=== PATIENT | female | born 1945 | race Hispanic/Latino ===

== ENCOUNTER 2017-12-11 08:46 | Emergency (ER) | payer OTHER ==
[2017-12-11 09:30] LABS: Absolute Lymphocytes (CBC) 2.6 K/uL (0.7-4.9); Absolute Monocytes 0.6 K/uL (0.1-1.3); Absolute Neutrophil 4.3 K/uL (1.8-8.0); Eosinophils % 3.9 % (0-4.4); Hematocrit 33.8 % (36.0-45.0); Lymphocytes % 32.7 % (15.3-44.8); MCH 27.2 pg (27.0-35.0); MPV 8.1 fL (7.6-11.3); Monocytes % 7.3 % (3.3-12.3); RBC Red Blood Cell Count 4.08 M/uL (3.86-4.86)
[2017-12-11 10:17] LABS: ALT/SGPT 14 U/L (12-78); AST/SGOT 16 U/L (15-37); Albumin 3.4 g/dL (3.4-5.0); Alkaline Phosphatase 88 U/L (45-117); BUN Blood Urea Nitrogen 22 mg/dL (7-18); Bicarbonate 30 mmol/L (21-32); Bilirubin Direct < 0.1 mg/dL (0-0.2); Bilirubin Total 0.3 mg/dL (0.2-1.0); Glucose Level 126 mg/dL (74-106); Lipase 123 U/L (73-393); Sodium Level 137 mmol/L (136-145)
[2017-12-11] MEDS ORDERED: NA CHLORIDE 0.9% 500 ML ONE (11:07)
[2017-12-11] MEDS ORDERED: MEPERIDINE HCL 50 MG/ML AMP ONE (11:07)
--- NOTE | 2017-12-11 11:10 | RAD REPORT ---
EXAM DESCRIPTION: CT - Abdomen Pelvis W Contrast - 12/11/2017 10:38 am CLINICAL HISTORY: Abdominal pain, back pain, prior , hysterectomy, cholecystectomy and back surgery COMPARISON: CT imaging November 2016 TECHNIQUE: Biphasic, helical CT imaging of the abdomen and pelvis was performed following 100 ml non -ionic IV contrast. No oral contrast administered. All CT scans are performed using dose optimization technique as appropriate and may include automated exposure control or mA/KV adjustment according to patient size. FINDINGS: Chronic interstitial lung disease in each base. No infiltrate, mass or pleural effusion. N o pericardial effusion. Liver size is normal. No focal liver lesion identified. Spleen pancreas also unremarkable. Cholecyste ctomy clips are present. Mild dilatation of the biliary tree is present. This is not outside of nathen l range in may simply be the reservoir effect that can develop after a cholecystectomy. No pancreatic or duodenal mass. Duct stones can be occult. Correlation can be made with any biliary obstructive cl inical or laboratory findings. Pancreatic duct is not dilated. Symmetric renal function is seen with no hydronephrosis or suspicious renal mass. Nonobstructing calc ulus noted on the left. No perinephric stranding. No pyelonephritis findings. Urinary bladder is most ly contracted. No mass or bladder calculus suspected. Uterus is absent. Ovaries are absent or atrophi c. No adnexal mass. No dilated bowel loops or bowel wall thickening. Moderate stool volume seen in the colon. Mild sigmoi d diverticulosis present without diverticulitis. No free air, free fluid or inflammatory stranding. No hernia, mass or bulky lymphadenopathy. No adrenal abnormality. Patient has extensive degenerative and postsurgical changes in the lumbar spine. Pedicle screws are i n place in L3, L5 and S1. Wedging of the L3 body has not changed. No pathologic bone process. No zaid r change from 2017 in the lumbar spine. SI joint and sacral ala degenerative changes are present. Acu te sacral ala fracture not confirmed on this study. There are postsurgical changes to the right ilium near the SI joint. No new bone or disc finding confirmed on this study. IMPRESSION: Gallbladder is surgically absent. There is mild dilatation of the biliary tree compared to 2017. Biliary tree dilatation may simply be the reservoir effect that can occur after cholecystectomy. Duct stones can be occult. No duodenal or pancreatic mass seen. No acute or GI process seen. Patient has extensive degenerative and postsurgical changes in the lumbar spine, pelvis and hip joint s. No acute finding confirmed.
--- NOTE | 2017-12-11 11:24 | ER ---
Nurse's Notes [facility] Name: Astrid Cash Age: 72 yrs Sex: Female : 1945 Arrival Date: 12/11/2017 Time: 08:47 Bed 16 Private MD: Jun Combs R Diagnosis: Muscle spasm of back;Osteoarthritis, unspecified site Presentation: 12/11 09:03 Presenting complaint: Patient states: low back pain that radiates towards abd that ss began 2 weeks ago. Transition of care: patient was not received from another setting of care. Onset of symptoms was November 27, 2017. Risk Assessment: Do you want to hurt yourself or someone else? Patient reports no desire to harm self or others. Initial Sepsis Screen: Does the patient meet any 2 criteria? No. Patient's initial sepsis screen is negative. Does the patient have a suspected source of infection? No. Patient's initial sepsis screen is negative. Care prior to arrival: None. 09:03 Method Of Arrival: Ambulatory ss 09:03 Acuity: [place] 3 ss Triage Assessment: 09:00 General: Appears in no apparent distress. Behavior is calm, cooperative, appropriate tw2 for age. Musculoskeletal: Range of motion: intact in all extremities, pt walks with walker. Historical: - Allergies: 09:07 Sulfa (Sulfonamide Antibiotics); ss - Home Meds: 14:27 alendronate 35 mg Oral tab 1 tab once wkly [Active]; aspirin 81 mg Oral TbEC 1 tab once tw2 daily [Active]; Cymbalta 60 mg Oral cpDR 1 cap once daily [Active]; gabapentin 300 mg Oral cap 1 cap 3 times per day [Active]; hydrocodone-acetaminophen 10-325 mg Oral tab 1 tab every 6 hours [Active]; methotrexate sodium 8.5mg injection once wkly [Active]; Metoprolol Tartrate Oral once daily [Active]; prednisone 5 mg Oral tab once daily [Active]; tizanidine 4 mg Oral tab 1 tab BID PRN [Active]; Xanax 0.5 mg Oral tab 1 tab 2 times daily [Active]; - PMHx: 09:07 Anxiety; Depression; Hypertension; Rheumatoid Arthritis; ss - PSHx: 09:07 ; Hysterectomy; LEFT FOOT; RIGHT FOOT; JI CATARACT EYE SX; BACK SX; ss Cholecystectomy; NECK SX; - Immunization history:: Adult Immunizations up to date, Flu vaccine is not up to date. - Social history:: Smoking status: Patient/guardian denies using tobacco. - Family history:: not pertinent. - Ebola Screening: : Patient denies exposure to infectious person Patient denies travel to an Ebola-affected area in the 21 days before illness onset. - Hospitalizations: : No recent hospitalization is reported. Screenin:23 Abuse screen: Denies threats or abuse. Nutritional screening: No deficits noted. tw2 Tuberculosis screening: No symptoms or risk factors identified. Fall Risk Secondary diagnosis (15 points) impaired mobility. Assessment: 09:00 General: Appears in no apparent distress. well groomed, Behavior is calm, cooperative, tw2 appropriate for age. Pain: Complains of pain in back. Neuro: Level of Consciousness is awake, alert, obeys commands, Oriented to person, place, time, situation. Cardiovascular: Denies chest pain, shortness of breath, Heart tones S1 S2 Capillary refill < 3 seconds Patient's skin is warm and dry. Respiratory: Airway is patent Respiratory effort is even, unlabored, Respiratory pattern is regular, symmetrical, Breath sounds are clear bilaterally. GI: No signs and/or symptoms were reported involving the gastrointestinal system. : No signs and/or symptoms were reported regarding the genitourinary system. EENT: No signs and/or symptoms were reported regarding the EENT system. Derm: No signs and/or symptoms reported regarding the dermatologic system. Musculoskeletal: Range of motion: intact in all extremities. 09:57 Reassessment: Patient appears in no apparent distress at this time. No changes from tw2 previously documented assessment. Patient and/or family updated on plan of care and expected duration. Pain level reassessed. Patient is alert, oriented x 3, equal unlabored respirations, skin warm/dry/pink. 10:56 Reassessment: Patient appears in no apparent distress at this time. Patient and/or tw2 family updated on plan of care and expected duration. Pain level reassessed. Patient is alert, oriented x 3, equal unlabored respirations, skin warm/dry/pink. pt c/o pain, "can i get something for the pain", provider notified. 12:00 Reassessment: Patient appears in no apparent distress at this time. No changes from tw2 previously documented assessment. Patient and/or family updated on plan of care and expected duration. Pain level reassessed. Patient is alert, oriented x 3, equal unlabored respirations, skin warm/dry/pink. 12:23 Reassessment: Patient appears in no apparent distress at this time. No changes from tw2 previously documented assessment. Patient and/or family updated on plan of care and expected duration. Pain level reassessed. Patient is alert, oriented x 3, equal unlabored respirations, skin warm/dry/pink. Vital Signs: 09:07 BP 143 / 77; Pulse 78; Resp 16; Temp 98.0(TE); Pulse Ox 100% on R/A; Weight 70.31 kg; ss Height 5 ft. 5 in. (165.10 cm); Pain 10/10; 09:56 BP 137 / 73; Pulse 70; Resp 17; Pulse Ox 100% on R/A; tw2 10:56 BP 110 / 83; Pulse 60; Resp 17; Pulse Ox 99% on R/A; tw2 12:22 BP 140 / 69; Pulse 65; Resp 17; Pulse Ox 100% on R/A; tw2 09:07 Body Mass Index 25.79 (70.31 kg, 165.10 cm) ED Course: 08:47 Patient arrived in ED. sb2 08:47 Jun Combs MD is Private Physician. sb2 08:55 Call light in reach. Side rails up X2. Adult w/ patient. Pulse ox on. NIBP on. Warm tw2 blanket given. 08:56 Sebastian Tyson MD is Attending Physician. rn 08:56 Jill Robles RN is Primary Nurse. tw2 09:06 Triage completed. ss 09:07 Arm band placed on right wrist. ss 09:20 Inserted saline lock: 22 gauge in left antecubital area, using aseptic technique. Blood tw2 collected. 10:39 CT Abd/Pelvis - W/Contrast In Process Unspecified. EDMS 11:00 Inserted saline lock: 22 gauge in right antecubital area, using aseptic technique. tw2 ,using aseptic technique. per Nasreen industrial engineering professor IV discontinued, intact, bleeding controlled, No redness/swelling at site. Pressure dressing applied, 22G LEFT ac discontinued at this time. 11:23 Jun Combs MD is Referral Physician. rn 11:38 Awaiting: waiting completion of IV fluids PRIOR to discharge. tw2 12:24 No provider procedures requiring assistance completed. ss Administered Medications: 11:04 Drug: NS 0.9% 500 ml Route: IV; Rate: bolus; Site: right antecubital; tw2 12:23 Follow up: Response: No adverse reaction; IV Status: Completed infusion; IV Intake: tw2 500ml 11:04 Drug: Demerol 25 mg Route: IVP; Site: right antecubital; tw2 12:24 Follow up: Response: No adverse reaction tw2 Intake: 12:23 IV: 500ml; Total: 500ml. tw2 Outcome: :23 Discharge ordered by . rn 12:23 Discharged to home ambulatory. tw2 12:23 Condition: stable 12:23 Discharge instructions given to patient, Instructed on discharge instructions, follow up and referral plans. no drinking with medication, no driving heavy equipment, medication usage, Demonstrated understanding of instructions, follow-up care, medications, Prescriptions given X 2. 12:24 Patient left the ED. ss Signatures: Dispatcher [employer] EDMS Sebastian Tyson MD MD rn Smirch, Shelby, RN RN ss Jill Robles RN RN tw2 Mirna Odell sb2
--- NOTE | 2017-12-11 11:24 | EDPHYS ---
Physician Documentation [facility] Name: Astrid Cash Age: 72 yrs Sex: Female : 1945 Arrival Date: 12/11/2017 Time: 08:47 Bed 16 Private MD: Jun Combs R ED Physician Sebastian Tyson HPI: 12/11 09:04 This 72 yrs old Female presents to ER via Unassigned with complaints of Back rn Pain. 09:04 The patient presents with pain that is acute, with no known mechanism of injury. The rn symptoms are located in the low back. Onset: The symptoms/episode began/occurred 2 week(s) ago. The pain radiates. Modifying factors: The patient symptoms are alleviated by remaining still, specific position, lying down, the patient symptoms are aggravated by any movement. Severity of symptoms: At their worst the symptoms were moderate, in the emergency department the symptoms are unchanged. The patient has experienced similar episodes in the past. Reports low back pain, radiates to lower abdomen, began 2 weeks ago, + nausea, no urinary symptoms, no trauma, reports goes away in position, saw pcp for this, [facility] doesn't want to drive to [place], came here. . Historical: - Allergies: 09:07 Sulfa (Sulfonamide Antibiotics); ss - Home Meds: 14:27 alendronate 35 mg Oral tab 1 tab once wkly [Active]; aspirin 81 mg Oral TbEC 1 tab once tw2 daily [Active]; Cymbalta 60 mg Oral cpDR 1 cap once daily [Active]; gabapentin 300 mg Oral cap 1 cap 3 times per day [Active]; hydrocodone-acetaminophen 10-325 mg Oral tab 1 tab every 6 hours [Active]; methotrexate sodium 8.5mg injection once wkly [Active]; Metoprolol Tartrate Oral once daily [Active]; prednisone 5 mg Oral tab once daily [Active]; tizanidine 4 mg Oral tab 1 tab BID PRN [Active]; Xanax 0.5 mg Oral tab 1 tab 2 times daily [Active]; - PMHx: 09:07 Anxiety; Depression; Hypertension; Rheumatoid Arthritis; ss - PSHx: 09:07 ; Hysterectomy; LEFT FOOT; RIGHT FOOT; JI CATARACT EYE SX; BACK SX; ss Cholecystectomy; NECK SX; - Immunization history:: Adult Immunizations up to date, Flu vaccine is not up to date. - Social history:: Smoking status: Patient/guardian denies using tobacco. - Family history:: not pertinent. - Ebola Screening: : Patient denies exposure to infectious person Patient denies travel to an Ebola-affected area in the 21 days before illness onset. - Hospitalizations: : No recent hospitalization is reported. ROS: 09:04 Constitutional: Negative for fever, chills, and weight loss, Eyes: Negative for injury, rn pain, redness, and discharge, Cardiovascular: Negative for chest pain, palpitations, and edema, Respiratory: Negative for shortness of breath, cough, wheezing, and pleuritic chest pain, Abdomen/GI: Negative for vomiting, diarrhea, and constipation, Back: Negative for injury MS/Extremity: Negative for injury and deformity, Skin: Negative for injury, rash, and discoloration, Neuro: Negative for headache, weakness, numbness, tingling, and seizure. Exam: 09:04 Constitutional: This is a well developed, well nourished patient who is awake, alert, rn and in no acute distress, ambulated to room with walker Head/Face: Normocephalic, atraumatic. Eyes: Pupils equal round and reactive to light, extra-ocular motions intact. Lids and lashes normal. Conjunctiva and sclera are non-icteric and not injected. Cornea within normal limits. Periorbital areas with no swelling, redness, or edema. Cardiovascular: Regular rate and rhythm with a normal S1 and S2. No gallops, murmurs, or rubs. Normal PMI, no JVD. No pulse deficits. Respiratory: Lungs have equal breath sounds bilaterally, clear to auscultation and percussion. No rales, rhonchi or wheezes noted. No increased work of breathing, no retractions or nasal flaring. Abdomen/GI: soft, mild bilateral lower abd tenderness, no rebound Skin: Warm, dry with normal turgor. Normal color with no rashes, no lesions, and no evidence of cellulitis. MS/ Extremity: Pulses equal, no cyanosis. Neurovascular intact. Full, normal range of motion. Equal circumference. Neuro: Awake and alert, GCS 15, oriented to person, place, time, and situation. Cranial nerves II-XII grossly intact. Motor strength 5/5 in all extremities. Sensory grossly intact. Cerebellar exam normal. Normal gait. Vital Signs: 09:07 BP 143 / 77; Pulse 78; Resp 16; Temp 98.0(TE); Pulse Ox 100% on R/A; Weight 70.31 kg; ss Height 5 ft. 5 in. (165.10 cm); Pain 10/10; 09:56 BP 137 / 73; Pulse 70; Resp 17; Pulse Ox 100% on R/A; tw2 10:56 BP 110 / 83; Pulse 60; Resp 17; Pulse Ox 99% on R/A; tw2 12:22 BP 140 / 69; Pulse 65; Resp 17; Pulse Ox 100% on R/A; tw2 09:07 Body Mass Index 25.79 (70.31 kg, 165.10 cm) ss MDM: 08:56 Patient medically screened. rn 11:22 Differential diagnosis: arthritis, chronic back pain, Fatigue Osteoarthritis sprain, rn rheumatoid arthritis, strain, muscle spasm, radiculopathy. Data reviewed: vital signs, nurses notes, lab test result(s), radiologic studies, CT scan, and as a result, I will discharge patient. Counseling: I had a detailed discussion with the patient and/or guardian regarding: the historical points, exam findings, and any diagnostic results supporting the discharge/admit diagnosis, lab results, radiology results, the need for outpatient follow up, to return to the emergency department if symptoms worsen or persist or if there are any questions or concerns that arise at home. Response to treatment: the patient's symptoms have mildly improved after treatment, and as a result, I will discharge patient. Special discussion: I discussed with the patient/guardian in detail that at this point there is no indication for admission to the hospital. It is understood, however, that if the symptoms persist or worsen the patient needs to return immediately for re-evaluation. Based on the history and exam findings, there is no indication for further emergent testing or inpatient evaluation. I discussed with the patient/guardian the need to see the back specialist for further evaluation of the symptoms. 12/11 09:03 Order name: Basic Metabolic Panel; Complete Time: 10:57 rn 12/11 09:03 Order name: CBC with Diff; Complete Time: :57 rn 12/11 09:03 Order name: Hepatic Function; Complete Time: :57 rn 10/01 09:03 Order name: Lipase; Complete Time: 10:57 rn 12/11 09:03 Order name: Urine Microscopic Only rn 12/11 11:25 Order name: Urine Dipstick--Ancillary (enter results) bd 12/11 09:03 Order name: IV Saline Lock; Complete Time: 09:24 rn 12/11 09:03 Order name: Labs collected and sent; Complete Time: 09:24 rn 12/11 09:03 Order name: CT Abd/Pelvis - W/Contrast; Complete Time: 11:17 rn 12/11 09:03 Order name: Urine Dipstick-Ancillary (obtain specimen); Complete Time: 11:54 rn Administered Medications: 11:04 Drug: NS 0.9% 500 ml Route: IV; Rate: bolus; Site: right antecubital; tw2 12:23 Follow up: Response: No adverse reaction; IV Status: Completed infusion; IV Intake: tw2 500ml 11:04 Drug: Demerol 25 mg Route: IVP; Site: right antecubital; tw2 12:24 Follow up: Response: No adverse reaction tw2 Disposition: 12/11/17 11:23 Discharged to Home. Impression: Muscle spasm of back, Osteoarthritis, unspecified site. - Condition is Stable. - Discharge Instructions: Muscle Cramps and Spasms, Back Exercises, [id number]. - Prescriptions for Medrol (Stephan) 4 mg Oral Tablets, Dose Pack - take 1 tablet by ORAL route as directed - follow package instructions; 1 packet. Cyclobenzaprine 5 mg Oral Tablet - take 1 tablet by ORAL route 3 times per day As needed; 15 tablet. - Medication Reconciliation Form, Thank You Letter, Antibiotic Education, Prescription Opioid Use form. - Follow up: Jun Combs MD; When: As needed; Reason: Recheck today's complaints, Re-evaluation by your physician. - Problem is new. - Symptoms have improved. Signatures: Dispatcher [employer] EDNY Sebastian Tyson MD MD rn Smirch, Shelby, RN RN ss Wise, Tara, RN RN tw2 Corrections: (The following items were deleted from the chart) 12:24 11:23 12/11/2017 11:23 Discharged to Home. Impression: Muscle spasm of back; ss Osteoarthritis, unspecified site. Condition is Stable. Forms are Medication Reconciliation Form, Thank You Letter, Antibiotic Education, Prescription Opioid Use. Follow up: Jun Combs; When: As needed; Reason: Recheck today's complaints, Re-evaluation by your physician. Problem is new. Symptoms have improved. rn
[2017-12-11 11:51] LABS: Urine Bacteria NONE SEEN /HPF (<20); Urine Culture Reflex Order NOT NEEDED; Urine RBC NONE SEEN /HPF (NONE SEEN)
[2017-12-11 13:02] VITALS: TEMP 98
[2017-12-11 13:07] VITALS: BP 140/69; O2SAT 100
[2017-12-11 13:18] LABS: Urine Blood TRACE (NEG); Urine Glucose NEGATIVE (NEG); Urine Protein NEGATIVE (NEG); Urine pH 5.5 (5.0-7.0)
== END 2017-12-11 12:24 | disposition home or self-care (01) ==
LOC: ER 08:46
DX: M62.830 Muscle spasm of back (principal); M19.90 Unspecified osteoarthritis, unspecified site; I10 Essential (primary) hypertension; F41.9 Anxiety disorder, unspecified; F32.9 Major depressive disorder, single episode, unspecified; Z79.82 Long term (current) use of aspirin; Z88.2 Allergy status to sulfonamides
CPT/HCPCS: 36415; 74177; 80048; 80076; 83690; 85025; 96361; 96374; 99284; J2175; Q9967; 81003; 81015

== ENCOUNTER 2017-12-14 20:47 | Emergency (ER) | payer OTHER ==
[2017-12-14] MEDS ORDERED: ONDANSETRON 4 MG/2 ML VIAL ONE (22:26)
[2017-12-14] MEDS ORDERED: FENTANYL CITR 100 MCG/2 ML ONE (22:26)
[2017-12-14] MEDS ORDERED: NA CHLORIDE 0.9% 1,000 ML ONE (22:26)
[2017-12-14 22:33] LABS: Urine Blood 1+ (NEG); Urine Glucose NEGATIVE (NEG); Urine Protein 1+ (NEG); Urine pH 5.5 (5.0-7.0)
[2017-12-14 22:43] LABS: Absolute Lymphocytes (CBC) 1.8 K/uL (0.7-4.9); Absolute Monocytes 0.7 K/uL (0.1-1.3); Absolute Neutrophil 9.7 K/uL (1.8-8.0); Basophils % 0.4 % (0-1.3); Eosinophils % 0.4 % (0-4.4); Hematocrit 31.2 % (36.0-45.0); Lymphocytes % 14.6 % (15.3-44.8); MCH 27.4 pg (27.0-35.0); MCV 82.3 fL (80-100); MPV 8.4 fL (7.6-11.3); Monocytes % 5.8 % (3.3-12.3)
[2017-12-14 22:55] LABS: Albumin 3.4 g/dL (3.4-5.0); Bilirubin Total 0.3 mg/dL (0.2-1.0); Potassium 3.4 mmol/L (3.5-5.1); Protein, Total 7.7 g/dL (6.4-8.2)
[2017-12-14] MEDS ORDERED: CEFTRIAXONE/SWI 1gm 1 GM/10 ML SYR ONE (23:08)
[2017-12-14] MEDS ORDERED: CIPROFLOXACIN HCL 500 MG TAB ONE (23:08)
--- NOTE | 2017-12-15 00:04 | ER ---
Nurse's Notes [facility] Name: Astrid Cash Age: 72 yrs Sex: Female : 1945 Arrival Date: 12/14/2017 Time: 20:51 Bed 27 Private MD: Jun Combs R Diagnosis: Low back pain;Cystitis;Unspecified kidney failure;Elevated white blood cell count;Anemia, unspecified Presentation: 12/14 21:04 Presenting complaint: Patient states: Back pain that is the same as it was 3 days ago aj when she was here. Pain has been ongoing for 2 weeks. Transition of care: patient was not received from another setting of care. Onset of symptoms was November 30, 2017. Risk Assessment: Do you want to hurt yourself or someone else? Patient reports no desire to harm self or others. Initial Sepsis Screen: Does the patient meet any 2 criteria? No. Patient's initial sepsis screen is negative. Does the patient have a suspected source of infection? No. Patient's initial sepsis screen is negative. Care prior to arrival: None. 21:04 Method Of Arrival: Ambulatory 21:04 Acuity: CALIX[place] 4 aj Triage Assessment: 21:07 General: Appears in no apparent distress. comfortable, Behavior is calm, cooperative, aj appropriate for age. Pain: Complains of pain in back. Neuro: Level of Consciousness is awake, alert, obeys commands, Oriented to person, place, time, situation, Appropriate for age. Respiratory: Airway is patent Respiratory effort is even, unlabored, Respiratory pattern is regular, symmetrical. Derm: Skin is intact, is healthy with good turgor, Skin is pink, warm \T\ dry. normal. Musculoskeletal: Circulation, motion, and sensation intact. Range of motion: intact in all extremities, Reports pain in back. Historical: - Allergies: 21:07 Sulfa (Sulfonamide Antibiotics); aj - Home Meds: 21:07 alendronate 35 mg Oral tab 1 tab once wkly [Active]; aspirin 81 mg Oral TbEC 1 tab once aj daily [Active]; Cymbalta 60 mg Oral cpDR 1 cap once daily [Active]; gabapentin 300 mg Oral cap 1 cap 3 times per day [Active]; hydrocodone-acetaminophen 10-325 mg Oral tab 1 tab every 6 hours [Active]; methotrexate sodium 8.5mg injection once wkly [Active]; Metoprolol Tartrate Oral once daily [Active]; prednisone 5 mg Oral tab once daily [Active]; tizanidine 4 mg Oral tab 1 tab BID PRN [Active]; Xanax 0.5 mg Oral tab 1 tab 2 times daily [Active]; - PMHx: 21:07 Anxiety; Depression; Hypertension; Rheumatoid Arthritis; Chronic pain; aj - PSHx: 21:07 ; Hysterectomy; LEFT FOOT; RIGHT FOOT; JI CATARACT EYE SX; BACK SX; aj Cholecystectomy; NECK SX; - Immunization history:: Adult Immunizations up to date. - Social history:: Smoking status: Patient/guardian denies using tobacco. - Ebola Screening: : Patient negative for fever greater than or equal to 101.5 degrees Fahrenheit, and additional compatible Ebola Virus Disease symptoms Patient denies exposure to infectious person Patient denies travel to an Ebola-affected area in the 21 days before illness onset No symptoms or risks identified at this time. Screenin:27 Abuse screen: Denies threats or abuse. Nutritional screening: No deficits noted. tl3 Tuberculosis screening: No symptoms or risk factors identified. Fall Risk None identified. Assessment: 21:27 General: Appears uncomfortable, well groomed, well developed, well nourished, Behavior tl3 is calm, cooperative, appropriate for age. Pain: Complains of pain in started in bilateral flank and radiated to lower back. Neuro: Level of Consciousness is awake, alert, obeys commands, Oriented to person, place, time, situation, Appropriate for age. Cardiovascular: Patient's skin is warm and dry. Respiratory: Airway is patent Respiratory effort is even, unlabored, Respiratory pattern is regular, symmetrical. GI: No signs and/or symptoms were reported involving the gastrointestinal system. : Reports pain flank(s), in lower back since 2 weeks. EENT: No signs and/or symptoms were reported regarding the EENT system. Derm: No signs and/or symptoms reported regarding the dermatologic system. Musculoskeletal: No signs and/or symptoms reported regarding the musculoskeletal system. 22:33 Reassessment: No changes from previously documented assessment. Patient and/or family tl3 updated on plan of care and expected duration. Pain level reassessed. Patient is alert, oriented x 3, equal unlabored respirations, skin warm/dry/pink. pt transported to CT. 23:31 Reassessment: No changes from previously documented assessment. Patient and/or family tl3 updated on plan of care and expected duration. Pain level reassessed. Patient is alert, oriented x 3, equal unlabored respirations, skin warm/dry/pink. pt ambulating to restroom. 12/15 00:20 Reassessment: No changes from previously documented assessment. Patient and/or family tl3 updated on plan of care and expected duration. Pain level reassessed. Patient is alert, oriented x 3, equal unlabored respirations, skin warm/dry/pink. pt states that pain medicine helps, but that with movement there is still sharp pains. Vital Signs: 12/14 21:07 BP 160 / 80; Pulse 80; Resp 19; Temp 97.1; Pulse Ox 99% on R/A; Weight 70.31 kg; Height aj 5 ft. 7 in. (170.18 cm); 23:31 BP 142 / 98; Pulse 63; Resp 18; Pulse Ox 98% on R/A; tl3 12/15 00:20 BP 140 / 72; Pulse 61; Resp 18; Pulse Ox 100% ; tl3 12/14 21:07 Body Mass Index 24.28 (70.31 kg, 170.18 cm) ED Course: 12/14 20:51 Patient arrived in ED. do 20:51 Jun Combs MD is Private Physician. do 21:05 Triage completed. aj 21:07 Arm band placed on left wrist. Patient placed in an exam room. aj 21:21 Nando Garcia MD is Attending Physician. [facility] 21:23 Yuli Santiago, NARCISA is Primary Nurse. tl3 21:27 Patient has correct armband on for positive identification. Bed in low position. Call tl3 light in reach. Side rails up X 1. Adult w/ patient. Pulse ox on. NIBP on. Warm blanket given. Pillow given. 21:27 No provider procedures requiring assistance completed. tl3 21:52 ED physician to see patient. DR Garcia. tl3 22:31 Initial lab(s) drawn, by me, sent to lab. Urine collected: clean catch specimen, clear. tl3 Inserted saline lock: 22 gauge in right Blood collected. 22:[address] via stretcher. jg6 22:38 CT completed. Patient tolerated procedure well. Patient moved back from CT. jg6 22:39 CT Stone Protocol In Process Unspecified. EDMS 12/15 00:03 Jun Combs MD is Referral Physician. aga 00:20 IV discontinued, intact, bleeding controlled, No redness/swelling at site. Pressure tl3 dressing applied. Administered Medications: 12/14 22:45 Drug: Rocephin - (cefTRIAXone) 1 grams Route: IVPB; Infused Over: 5 mins; Site: right tl3 forearm; 23:31 Follow up: IV Status: Completed infusion; IV Intake: 20ml tl3 22:50 Drug: Cipro 500 mg Route: PO; tl3 23:31 Follow up: Response: No adverse reaction tl3 22:55 Drug: Zofran 4 mg Route: IVP; Infused Over: 2 mins; Site: right forearm; tl3 23:31 Follow up: Response: No adverse reaction tl3 22:56 Drug: NS 0.9% 500 ml Route: IV; Rate: bolus; Site: right forearm; Delivery: Primary tl3 tubing; 23:42 Follow up: IV Status: Completed infusion; IV Intake: 500ml tl3 22:56 Drug: fentaNYL (PF) 25 mcg Route: IVP; Infused Over: 2 mins; Site: right forearm; tl3 23:31 Follow up: Response: Pain is decreased tl3 23:55 Drug: fentaNYL (PF) 25 mcg Route: IVP; Infused Over: 2 mins; Site: right forearm; tl3 12/15 00:21 Follow up: Response: Pain is decreased tl3 Intake: 12/14 23:31 IV: 20ml; Total: 20ml. tl3 23:42 IV: 500ml; Total: 520ml. tl3 Outcome: 12/15 00:03 Discharge ordered by . aga 00:20 Discharged to home ambulatory. tl3 00:20 Condition: stable 00:20 Discharge instructions given to patient, Instructed on discharge instructions, follow up and referral plans. medication usage, Demonstrated understanding of instructions, follow-up care, medications, Prescriptions given X 2. 00:22 Patient left the ED. tl3 Addendum: 12/18/2017 09:22 Addendum: Culture Results: Positive urine culture. Bacteria is resistant to, has i w intermediate sensitivity, or is not tested against prescribed antibiotics. Report given to ARACELI for further evaluation and then to retail salesman for follow up with patient. Phone call Attempt #1 pt asymptomatic for UTI, has f/u appt with Dr. Combs today at 10am. Signatures: Dispatcher [employer] Yanira Ash, Nando Donovan RN, MD MD cha Williams, Irene, RN RN iw Ogletree, Danielle do Lowrey, Tammy, RN RN tl3 Bonita Encarnacion6 Corrections: (The following items were deleted from the chart) 12/15 00:21 12/14 22:33 BP 105 / 74; Pulse 61bpm; Resp 18bpm; Pulse Ox 98% RA; tl3 tl3
--- NOTE | 2017-12-15 00:04 | EDPHYS ---
Physician Documentation [facility] Name: Astrid Cash Age: 72 yrs Sex: Female : 1945 Arrival Date: 12/14/2017 Time: 20:51 Bed 27 Private MD: Jun Combs R ED Physician Nando Garcia HPI: 12/14 21:55 This 72 yrs old Female presents to ER via Ambulatory with complaints of Back aag Pain. 21:55 The patient presents with pain that is acute. aga Historical: - Allergies: 21:07 Sulfa (Sulfonamide Antibiotics); aj - Home Meds: 21:07 alendronate 35 mg Oral tab 1 tab once wkly [Active]; aspirin 81 mg Oral TbEC 1 tab once aj daily [Active]; Cymbalta 60 mg Oral cpDR 1 cap once daily [Active]; gabapentin 300 mg Oral cap 1 cap 3 times per day [Active]; hydrocodone-acetaminophen 10-325 mg Oral tab 1 tab every 6 hours [Active]; methotrexate sodium 8.5mg injection once wkly [Active]; Metoprolol Tartrate Oral once daily [Active]; prednisone 5 mg Oral tab once daily [Active]; tizanidine 4 mg Oral tab 1 tab BID PRN [Active]; Xanax 0.5 mg Oral tab 1 tab 2 times daily [Active]; - PMHx: 21:07 Anxiety; Depression; Hypertension; Rheumatoid Arthritis; Chronic pain; aj - PSHx: 21:07 ; Hysterectomy; LEFT FOOT; RIGHT FOOT; JI CATARACT EYE SX; BACK SX; aj Cholecystectomy; NECK SX; - Immunization history:: Adult Immunizations up to date. - Social history:: Smoking status: Patient/guardian denies using tobacco. - Ebola Screening: : Patient negative for fever greater than or equal to 101.5 degrees Fahrenheit, and additional compatible Ebola Virus Disease symptoms Patient denies exposure to infectious person Patient denies travel to an Ebola-affected area in the 21 days before illness onset No symptoms or risks identified at this time. ROS: 21:56 Constitutional: Negative for fever, chills, and weight loss, Eyes: Negative for injury, aga pain, redness, and discharge, ENT: Negative for injury, pain, and discharge, Neck: Negative for injury, pain, and swelling, Cardiovascular: Negative for chest pain, palpitations, and edema, Respiratory: Negative for shortness of breath, cough, wheezing, and pleuritic chest pain, MS/Extremity: Negative for injury and deformity, Skin: Negative for injury, rash, and discoloration, Neuro: Negative for headache, weakness, numbness, tingling, and seizure, Psych: Negative for depression, anxiety, suicide ideation, homicidal ideation, and hallucinations, Allergy/Immunology: Negative for hives, rash, and allergies, Endocrine: Negative for neck swelling, polydipsia, polyuria, polyphagia, and marked weight changes, Hematologic/Lymphatic: Negative for swollen nodes, abnormal bleeding, and unusual bruising. 21:56 Abdomen/GI: Positive for abdominal pain. 21:56 Back: Positive for decreased range of motion, pain at rest, pain with movement, flank pain. 21:56 : Positive for urinary symptoms, Negative for injury or acute deformity. Exam: 21:56 Constitutional: This is a well developed, well nourished patient who is awake, alert, aga and in no acute distress. Head/Face: Normocephalic, atraumatic. Eyes: Pupils equal round and reactive to light, extra-ocular motions intact. Lids and lashes normal. Conjunctiva and sclera are non-icteric and not injected. Cornea within normal limits. Periorbital areas with no swelling, redness, or edema. ENT: Nares patent. No nasal discharge, no septal abnormalities noted. Tympanic membranes are normal and external auditory canals are clear. Oropharynx with no redness, swelling, or masses, exudates, or evidence of obstruction, uvula midline. Mucous membranes moist. Neck: Trachea midline, no thyromegaly or masses palpated, and no cervical lymphadenopathy. Supple, full range of motion without nuchal rigidity, or vertebral point tenderness. No Meningismus. Chest/axilla: Normal chest wall appearance and motion. Nontender with no deformity. No lesions are appreciated. Cardiovascular: Regular rate and rhythm with a normal S1 and S2. No gallops, murmurs, or rubs. Normal PMI, no JVD. No pulse deficits. Respiratory: Lungs have equal breath sounds bilaterally, clear to auscultation and percussion. No rales, rhonchi or wheezes noted. No increased work of breathing, no retractions or nasal flaring. Back: No spinal tenderness. No costovertebral tenderness. Full range of motion. Female : Normal external genitalia. Skin: Warm, dry with normal turgor. Normal color with no rashes, no lesions, and no evidence of cellulitis. MS/ Extremity: Pulses equal, no cyanosis. Neurovascular intact. Full, normal range of motion. Neuro: Awake and alert, GCS 15, oriented to person, place, time, and situation. Cranial nerves II-XII grossly intact. Motor strength 5/5 in all extremities. Sensory grossly intact. Cerebellar exam normal. Normal gait. Psych: Awake, alert, with orientation to person, place and time. Behavior, mood, and affect are within normal limits. 21:56 Abdomen/GI: Inspection: abdomen appears normal, Bowel sounds: normal, Palpation: mild abdominal tenderness, in the right lower quadrant and left lower quadrant, Liver: no appreciated palpable abnormalities, Hernia: not appreciated. Vital Signs: 21:07 BP 160 / 80; Pulse 80; Resp 19; Temp 97.1; Pulse Ox 99% on R/A; Weight 70.31 kg; Height aj 5 ft. 7 in. (170.18 cm); 23:31 BP 142 / 98; Pulse 63; Resp 18; Pulse Ox 98% on R/A; 3 12/15 00:20 BP 140 / 72; Pulse 61; Resp 18; Pulse Ox 100% ; tl3 12/14 21:07 Body Mass Index 24.28 (70.31 kg, 170.18 cm) [facility]: 12/14 21:21 Patient medically screened. [facility] 21:57 Data reviewed: vital signs, nurses notes, lab test result(s), radiologic studies, CT aga scan. 12/14 21:39 Order name: Urine Dipstick--Ancillary (enter results); Complete Time: 23:15 ms 12/14 21:55 Order name: CBC with Diff; Complete Time: 23:15 aga 12/14 21:55 Order name: Comprehensive Metabolic Panel; Complete Time: 23:15 aga 12/14 21:55 Order name: CT Stone Protocol [facility] 12/14 21:55 Order name: Urine Culture [facility] Administered Medications: 22:45 Drug: Rocephin - (cefTRIAXone) 1 grams Route: IVPB; Infused Over: 5 mins; Site: right tl3 forearm; 23:31 Follow up: IV Status: Completed infusion; IV Intake: 20ml tl3 22:50 Drug: Cipro 500 mg Route: PO; tl3 23:31 Follow up: Response: No adverse reaction tl3 22:55 Drug: Zofran 4 mg Route: IVP; Infused Over: 2 mins; Site: right forearm; tl3 23:31 Follow up: Response: No adverse reaction tl3 22:56 Drug: NS 0.9% 500 ml Route: IV; Rate: bolus; Site: right forearm; Delivery: Primary tl3 tubing; 23:42 Follow up: IV Status: Completed infusion; IV Intake: 500ml tl3 22:56 Drug: fentaNYL (PF) 25 mcg Route: IVP; Infused Over: 2 mins; Site: right forearm; tl3 23:31 Follow up: Response: Pain is decreased tl3 23:55 Drug: fentaNYL (PF) 25 mcg Route: IVP; Infused Over: 2 mins; Site: right forearm; tl3 12/15 00:21 Follow up: Response: Pain is decreased tl3 Disposition: 12/15/17 00:03 Discharged to Home. Impression: Low back pain, Cystitis, Unspecified kidney failure, Elevated white blood cell count, Anemia, unspecified. - Condition is Stable. - Discharge Instructions: Anemia, Nonspecific, Back Pain, Adult, Chronic Back Pain, Dysuria, Urinary Tract Infection, Adult, Urinary Tract Infection, Adult, [id number]. - Prescriptions for Tylenol- Codeine #3 300-30 mg Oral Tablet - take 2 tablet by ORAL route every 6 hours As needed; 30 tablet. Cipro 500 mg Oral Tablet - take 1 tablet by ORAL route every 12 hours for 7 days; 14 tablet. - Medication Reconciliation Form, Thank You Letter, Antibiotic Education, Prescription Opioid Use form. - Follow up: Jun Combs; When: 2 - 3 days; Reason: Recheck today's complaints, Continuance of care, Re-evaluation by your physician. - Problem is new. - Symptoms have improved. Signatures: Dispatcher [employer] Yanira Ash RN RN aj Anderson, Corey, MD MD cha Lowrey, Tammy, RN RN tl3 Corrections: (The following items were deleted from the chart) 00:04 00:03 12/15/2017 00:03 Discharged to Home. Impression: Low back pain; Cystitis; aga Unspecified kidney failure; Elevated white blood cell count. Condition is Stable. Discharge Instructions: Back Pain, Adult, Chronic Back Pain, Dysuria, Urinary Tract Infection, Adult, Urinary Tract Infection, Adult, [id number]. Prescriptions for Tylenol-Codeine #3 300-30 mg Oral Tablet - take 2 tablet by ORAL route every 6 hours As needed; 30 tablet, Cipro 500 mg Oral Tablet - take 1 tablet by ORAL route every 12 hours for 7 days; 14 tablet. and Forms are Medication Reconciliation Form, Thank You Letter, Antibiotic Education, Prescription Opioid Use. Follow up: Jun Combs; When: 2 - 3 days; Reason: Recheck today's complaints, Continuance of care, Re-evaluation by your physician. Problem is new. Symptoms have improved. [facility] 00:22 00:04 12/15/2017 00:03 Discharged to Home. Impression: Low back pain; Cystitis; tl3 Unspecified kidney failure; Elevated white blood cell count; Anemia, unspecified. Condition is Stable. Discharge Instructions: Back Pain, Adult, Chronic Back Pain, Dysuria, Urinary Tract Infection, Adult, Urinary Tract Infection, Adult, [id number]. Prescriptions for Tylenol-Codeine #3 300-30 mg Oral Tablet - take 2 tablet by ORAL route every 6 hours As needed; 30 tablet, Cipro 500 mg Oral Tablet - take 1 tablet by ORAL route every 12 hours for 7 days; 14 tablet. and Forms are Medication Reconciliation Form, Thank You Letter, Antibiotic Education, Prescription Opioid Use. Follow up: Jun Combs; When: 2 - 3 days; Reason: Recheck today's complaints, Continuance of care, Re-evaluation by your physician. Problem is new. Symptoms have improved. aga
[2017-12-15 00:30] VITALS: TEMP 97.1
[2017-12-15 00:32] VITALS: BP 140/72; O2SAT 100
--- NOTE | 2017-12-15 08:22 | RAD REPORT ---
EXAM DESCRIPTION: CT - Stone Protocol - 12/14/2017 10:39 pm CLINICAL HISTORY: Abdominal pain./back pain for 2 weeks COMPARISON: 12/11/2017 TECHNIQUE: Computed axial tomography of the abdomen pelvis was obtained without oral or IV contrast. Lack of IV and oral contrast limits evaluation of solid organs, bowel, and vessels. Coronal reformat zane images were obtained and reviewed. All CT scans are performed using dose optimization technique as appropriate and may include automated exposure control or mA/KV adjustment according to patient size. FINDINGS: Two left renal calculi are present largest measuring 5 millimeters. Hydronephrosis is not seen. Cortical thinning is present likely related to prior inflammation. A right renal calculus is no t seen. Tiny umbilical hernia is present. An ureteral calculus is not noted. A bladder calculus is not presen t. The liver, spleen, pancreas and adrenals appear grossly normal There is no evidence of diverticulitis. A hysterectomy has been performed. An adnexal mass is not see n. Postsurgical changes involve the lumbar spine. The appendix is normal The gallbladder is been removed IMPRESSION: Nonobstructing left renal calculi
== END 2017-12-15 00:22 | disposition home or self-care (01) ==
LOC: ER 20:47
DX: N30.90 Cystitis, unspecified without hematuria (principal); N19 Unspecified kidney failure; D72.829 Elevated white blood cell count, unspecified; D64.9 Anemia, unspecified; I10 Essential (primary) hypertension; F32.9 Major depressive disorder, single episode, unspecified; Z88.2 Allergy status to sulfonamides; Z79.82 Long term (current) use of aspirin
CPT/HCPCS: 36415; 74176; 76377; 80053; 81003; 85025; 87077; 87086; 87088; 87186; 96365; 96375; 99284; J0696; J2405; J3010; J7030

== ENCOUNTER 2017-12-15 06:55 | Emergency (ER) | payer OTHER ==
[2017-12-15] MEDS ORDERED: NA CHLORIDE 0.9% 500 ML ONE (07:16)
[2017-12-15] MEDS ORDERED: METHYLPREDNISOLONE 125 MG INJ ONE (07:16)
[2017-12-15] MEDS ORDERED: FAMOTIDINE 20 MG/2 ML VIAL IV ONE (07:16)
[2017-12-15] MEDS ORDERED: DIPHENHYDRAMINE 25 MG TAB/CAP ONE (07:16)
[2017-12-15] MEDS ORDERED: predniSONE 20 MG TAB ONE (07:16)
[2017-12-15 07:31] LABS: Absolute Lymphocytes (CBC) 3.4 K/uL (0.7-4.9); Absolute Monocytes 0.7 K/uL (0.1-1.3); Absolute Neutrophil 8.3 K/uL (1.8-8.0); Basophils % 2.3 % (0-1.3); Eosinophils % 0.2 % (0-4.4); Hematocrit 31.8 % (36.0-45.0); Lymphocytes % 26.6 % (15.3-44.8); MCH 27.2 pg (27.0-35.0); MCV 83.4 fL (80-100); MPV 8.8 fL (7.6-11.3); Monocytes % 5.5 % (3.3-12.3); RBC Red Blood Cell Count 3.81 M/uL (3.86-4.86)
[2017-12-15 07:50] LABS: Albumin 3.4 g/dL (3.4-5.0); Bilirubin Total 0.3 mg/dL (0.2-1.0); Potassium 3.6 mmol/L (3.5-5.1); Protein, Total 7.8 g/dL (6.4-8.2)
--- NOTE | 2017-12-15 08:47 | ER ---
Nurse's Notes [facility] Name: Astrid Cash Age: 72 yrs Sex: Female : 1945 Arrival Date: 12/15/2017 Time: 06:55 Bed 2 Private MD: Diagnosis: Angioneurotic edema;Essential (primary) hypertension Presentation: 12/15 06:56 Presenting complaint: Patient states: EMS toned out for report of pt having possible bb allergic reaction pt was seen here last night for back pain. Transition of care: patient was not received from another setting of care. Onset of symptoms was December 15, 2017. Risk Assessment: Do you want to hurt yourself or someone else? Patient reports no desire to harm self or others. Initial Sepsis Screen: Does the patient meet any 2 criteria? No. Patient's initial sepsis screen is negative. Does the patient have a suspected source of infection? No. Patient's initial sepsis screen is negative. Care prior to arrival: Medication(s) given: Benadryl 25 mg IM and 25 mg IV IV initiated. 22 GA, in the left antecubital area. 06:56 Method Of Arrival: EMS: [facility] bb 06:56 Acuity: [place] 4 bb Historical: - Allergies: 07:04 Sulfa (Sulfonamide Antibiotics); bb - Home Meds: 07:04 alendronate 35 mg Oral tab 1 tab once wkly [Active]; aspirin 81 mg Oral TbEC 1 tab once bb daily [Active]; Cymbalta 60 mg Oral cpDR 2 caps once daily [Active]; gabapentin 1800 mg daily Oral cap 1 cap once daily [Active]; hydrocodone-acetaminophen 10-325 mg Oral tab 1 tab every 6 hours [Active]; methotrexate sodium 8.5mg injection once wkly [Active]; benazepril-hydrochlorothiazide 20-12.5 mg oral tab 1 tab once daily [Active]; metoprolol tartrate 100 mg oral tab 1 tab once daily [Active]; folic acid 1 mg Oral tab 1 tab once daily [Active]; prednisone 4 mg daily Oral tab once daily [Active]; vit D3 2000 IU daily [Active]; Cizmia [Active]; - PMHx: 07:04 Anxiety; Chronic pain; Depression; Hypertension; Rheumatoid Arthritis; bb - Immunization history:: Adult Immunizations up to date. - Social history:: Smoking status: Patient/guardian denies using tobacco, Patient/guardian denies using alcohol, street drugs. - Ebola Screening: : No symptoms or risks identified at this time. Screenin:20 Abuse screen: Denies threats or abuse. Denies injuries from another. Nutritional sv screening: No deficits noted. Tuberculosis screening: No symptoms or risk factors identified. Fall Risk None identified. Assessment: 07:10 General: Appears in no apparent distress. comfortable, well developed, Behavior is sv calm, cooperative, appropriate for age. Pain: Denies pain. Neuro: Level of Consciousness is awake, alert, obeys commands, Oriented to person, place, time, situation, Moves all extremities. Full function Speech is normal. Cardiovascular: Patient's skin is warm and dry. Rhythm is sinus rhythm. Respiratory: Airway is patent Trachea midline Respiratory effort is even, unlabored, Respiratory pattern is regular, symmetrical. EENT: Oral mucosa is dry. Throat is clear Reports dry mouth. Denies tongue swelling. Derm: Skin is pink, warm \T\ dry. Musculoskeletal: No signs and/or symptoms reported regarding the musculoskeletal system. 08:10 Reassessment: Patient appears in no apparent distress at this time. No changes from sv previously documented assessment. Patient and/or family updated on plan of care and expected duration. Pain level reassessed. Patient is alert, oriented x 3, equal unlabored respirations, skin warm/dry/pink. 09:07 Reassessment: Patient appears in no apparent distress at this time. No changes from sv previously documented assessment. Patient and/or family updated on plan of care and expected duration. Pain level reassessed. Patient is alert, oriented x 3, equal unlabored respirations, skin warm/dry/pink. Vital Signs: 07:04 BP 125 / 76; Pulse 72; Resp 16 S; Temp 98.7(O); Pulse Ox 97% on R/A; Weight 70.31 kg bb (R); Height 5 ft. 5 in. (165.10 cm) (R); Pain 7/10; 07:39 BP 146 / 79; Pulse 63; Resp 18; Pulse Ox 99% on R/A; sv 08:21 BP 144 / 79; Pulse 57; Resp 18; Pulse Ox 99% on R/A; jb1 08:57 BP 103 / 73; Pulse 57; Resp 20; Pulse Ox 97% ; sv 07:04 Body Mass Index 25.79 (70.31 kg, 165.10 cm) bb ED Course: 06:55 Patient arrived in ED. ds1 06:56 Nando Garcia MD is Attending Physician. aga 06:57 Triage completed. bb 07:04 Kirstie Denson RN is Primary Nurse. sv 07:04 Arm band placed on Patient placed in an exam room, on a stretcher, on pulse oximetry. bb 07:05 Report received from Sharda BREWSTER. sv 07:05 Patient has correct armband on for positive identification. Bed in low position. sv awake overnight monitor on. Pulse ox on. NIBP on. Door closed. Head of bed elevated. 07:17 Alex Shaffer NP is PHCP. pm1 07:20 Maintain EMS IV. Dressing intact. Good blood return noted. Site clean \T\ dry. Gauge \T\ sv site: 22G L AC. 08:47 Jun Combs MD is Referral Physician. pm1 09:02 No provider procedures requiring assistance completed. IV discontinued, intact, sv bleeding controlled, No redness/swelling at site. Pressure dressing applied. Administered Medications: 07:20 Drug: NS 0.9% 500 ml Route: IV; Rate: bolus; Site: left antecubital; sv 08:00 Follow up: Response: No adverse reaction; IV Status: Completed infusion; IV Intake: sv 500ml 07:20 Drug: SOLU-Medrol 125 mg Route: IVP; Site: left antecubital; sv 09:08 Follow up: Response: No adverse reaction sv 07:22 Drug: Pepcid 20 mg Route: IVP; Site: left antecubital; sv 09:08 Follow up: Response: No adverse reaction sv 07:22 Drug: predniSONE 20 mg Route: PO; sv 07:30 Follow up: Response: No adverse reaction sv 07:22 Drug: Benadryl 25 mg Route: PO; sv 07:30 Follow up: Response: No adverse reaction sv 07:23 Not Given (Duplicate Order): Benadryl 25 mg IVP once sv Intake: 08:00 IV: 500ml; Total: 500ml. sv Outcome: 08:47 Discharge ordered by . pm1 09:09 Discharged to home ambulatory. hb 09:09 Condition: stable 09:09 Discharge instructions given to patient, Instructed on discharge instructions, follow up and referral plans. medication usage, Demonstrated understanding of instructions, follow-up care, medications, Prescriptions given X x 5 09:13 Patient left the ED. jb1 Signatures: Ed Johnson jb1 Kirstie Denson, RN RN Nando Cullen MD MD cha Sanford, Demi ds1 Florence Perez RN RN bb Alex Shaffer, POWER DISTRIBUTOR POWER DISTRIBUTOR pm1 Samara Valles, RN RN hb
--- NOTE | 2017-12-15 08:47 | EDPHYS ---
Physician Documentation [facility] Name: Astrid Cash Age: 72 yrs Sex: Female : 1945 Arrival Date: 12/15/2017 Time: 06:55 Bed 2 Private MD: ED Physician Nando Garcia HPI: 12/15 07:03 This 72 yrs old Female presents to ER via EMS with complaints of Tongue aga Swelling. 07:03 The patient presents with swelling of the tongue. Onset: The symptoms/episode aga began/occurred just prior to arrival, this morning. Associated signs and symptoms: The patient has no apparent associated signs or symptoms. Possible causes: The patient has no known obvious cause for the symptoms. At home the patient or guardian has treated the symptoms with nothing. Severity of symptoms: At their worst the symptoms were mild in the emergency department the symptoms are unchanged. Historical: - Allergies: 07:04 Sulfa (Sulfonamide Antibiotics); bb - Home Meds: 07:04 alendronate 35 mg Oral tab 1 tab once wkly [Active]; aspirin 81 mg Oral TbEC 1 tab once bb daily [Active]; Cymbalta 60 mg Oral cpDR 2 caps once daily [Active]; gabapentin 1800 mg daily Oral cap 1 cap once daily [Active]; hydrocodone-acetaminophen 10-325 mg Oral tab 1 tab every 6 hours [Active]; methotrexate sodium 8.5mg injection once wkly [Active]; benazepril-hydrochlorothiazide 20-12.5 mg oral tab 1 tab once daily [Active]; metoprolol tartrate 100 mg oral tab 1 tab once daily [Active]; folic acid 1 mg Oral tab 1 tab once daily [Active]; prednisone 4 mg daily Oral tab once daily [Active]; vit D3 2000 IU daily [Active]; Cizmia [Active]; - PMHx: 07:04 Anxiety; Chronic pain; Depression; Hypertension; Rheumatoid Arthritis; bb - Immunization history:: Adult Immunizations up to date. - Social history:: Smoking status: Patient/guardian denies using tobacco, Patient/guardian denies using alcohol, street drugs. - Ebola Screening: : No symptoms or risks identified at this time. ROS: 07:05 Constitutional: Negative for fever, chills, and weight loss, Eyes: Negative for injury, aga pain, redness, and discharge, Neck: Negative for injury, pain, and swelling, Cardiovascular: Negative for chest pain, palpitations, and edema, Respiratory: Negative for shortness of breath, cough, wheezing, and pleuritic chest pain, Abdomen/GI: Negative for abdominal pain, nausea, vomiting, diarrhea, and constipation, Back: Negative for injury and pain, : Negative for injury, bleeding, discharge, and swelling, MS/Extremity: Negative for injury and deformity, Skin: Negative for injury, rash, and discoloration, Neuro: Negative for headache, weakness, numbness, tingling, and seizure, Psych: Negative for depression, anxiety, suicide ideation, homicidal ideation, and hallucinations, Allergy/Immunology: Negative for hives, rash, and allergies, Endocrine: Negative for neck swelling, polydipsia, polyuria, polyphagia, and marked weight changes, Hematologic/Lymphatic: Negative for swollen nodes, abnormal bleeding, and unusual bruising. 07:05 ENT: Positive for tongue swelling, op neg, talks and swallows without dofficulty. Exam: 07:05 Constitutional: This is a well developed, well nourished patient who is awake, alert, aga and in no acute distress. Head/Face: Normocephalic, atraumatic. Eyes: Pupils equal round and reactive to light, extra-ocular motions intact. Lids and lashes normal. Conjunctiva and sclera are non-icteric and not injected. Cornea within normal limits. Periorbital areas with no swelling, redness, or edema. Neck: Trachea midline, no thyromegaly or masses palpated, and no cervical lymphadenopathy. Supple, full range of motion without nuchal rigidity, or vertebral point tenderness. No Meningismus. Chest/axilla: Normal chest wall appearance and motion. Nontender with no deformity. No lesions are appreciated. Cardiovascular: Regular rate and rhythm with a normal S1 and S2. No gallops, murmurs, or rubs. Normal PMI, no JVD. No pulse deficits. Respiratory: Lungs have equal breath sounds bilaterally, clear to auscultation and percussion. No rales, rhonchi or wheezes noted. No increased work of breathing, no retractions or nasal flaring. Abdomen/GI: Soft, non-tender, with normal bowel sounds. No distension or tympany. No guarding or rebound. No evidence of tenderness throughout. Back: No spinal tenderness. No costovertebral tenderness. Full range of motion. Female : Normal external genitalia. Skin: Warm, dry with normal turgor. Normal color with no rashes, no lesions, and no evidence of cellulitis. MS/ Extremity: Pulses equal, no cyanosis. Neurovascular intact. Full, normal range of motion. Neuro: Awake and alert, GCS 15, oriented to person, place, time, and situation. Cranial nerves II-XII grossly intact. Motor strength 5/5 in all extremities. Sensory grossly intact. Cerebellar exam normal. Normal gait. Psych: Awake, alert, with orientation to person, place and time. Behavior, mood, and affect are within normal limits. 07:05 ENT: Posterior pharynx: is normal, no acute changes, Airway: normal, Tonsils: are normal in appearance, Uvula: normal, tongue swollen anteriorly. Vital Signs: 07:04 BP 125 / 76; Pulse 72; Resp 16 S; Temp 98.7(O); Pulse Ox 97% on R/A; Weight 70.31 kg bb (R); Height 5 ft. 5 in. (165.10 cm) (R); Pain 7/10; 07:39 BP 146 / 79; Pulse 63; Resp 18; Pulse Ox 99% on R/A; sv 08:21 BP 144 / 79; Pulse 57; Resp 18; Pulse Ox 99% on R/A; jb1 08:57 BP 103 / 73; Pulse 57; Resp 20; Pulse Ox 97% ; sv 07:04 Body Mass Index 25.79 (70.31 kg, 165.10 cm) bb MDM: 06:56 Patient medically screened. [facility] 07:05 Data reviewed: vital signs, nurses notes, lab test result(s), CBC, electrolytes. [facility] 07:20 ED course: Hand off received from Dr. Garcia. Plan for hand off: Pending labs. If pm1 improvement in symptoms and labs are fine, discharge patient home with instructions to stop taking Cipro and Benazepril and to start taking Norvasc and Macrobid. 08:26 Data interpreted: Pulse oximetry: on room air is 99 %. Interpretation: normal. pm1 08:45 ED course: No swelling present to face or tongue and patient reports improvement in pm1 symptoms. 08:46 Counseling: I had a detailed discussion with the patient and/or guardian regarding: the pm1 historical points, exam findings, and any diagnostic results supporting the discharge/admit diagnosis, lab results, the need for outpatient follow up, PCP for blood pressure medication management, to return to the emergency department if symptoms worsen or persist or if there are any questions or concerns that arise at home. 12/15 07:03 Order name: CBC with Diff; Complete Time: 07:49 aga 12/15 07:03 Order name: Comprehensive Metabolic Panel; Complete Time: 08:04 aga Administered Medications: 07:20 Drug: NS 0.9% 500 ml Route: IV; Rate: bolus; Site: left antecubital; sv 08:00 Follow up: Response: No adverse reaction; IV Status: Completed infusion; IV Intake: sv 500ml 07:20 Drug: SOLU-Medrol 125 mg Route: IVP; Site: left antecubital; sv 09:08 Follow up: Response: No adverse reaction sv 07:22 Drug: Pepcid 20 mg Route: IVP; Site: left antecubital; sv 09:08 Follow up: Response: No adverse reaction sv 07:22 Drug: predniSONE 20 mg Route: PO; sv 07:30 Follow up: Response: No adverse reaction sv 07:22 Drug: Benadryl 25 mg Route: PO; sv 07:30 Follow up: Response: No adverse reaction sv 07:23 Not Given (Duplicate Order): Benadryl 25 mg IVP once sv Disposition: 15:16 Co-signature as Attending Physician, Nando Garcia MD I agree with the assessment and [facility] plan of care. Disposition: 12/15/17 08:47 Discharged to Home. Impression: Angioneurotic edema, Essential (primary) hypertension. - Condition is Stable. - Discharge Instructions: Allergies, Adult, Hypertension, Angioedema, Hypertension, [id number], Angioedema, [id number], How to Take Your Blood Pressure, [id number], Allergies, [id number]-[id number], Managing Your Hypertension. - Prescriptions for Benadryl 25 mg Oral Capsule - take 1 capsule by ORAL route every 6 hours As needed; 30 tablet. Pepcid 20 mg Oral Tablet - take 1 tablet by ORAL route every 12 hours for 10 days; 20 tablet. Prednisone 20 mg Oral Tablet - take 2 tablet by ORAL route once daily for 5 days; 10 tablet. Macrobid 100 mg Oral Capsule - take 1 capsule by ORAL route every 12 hours for 7 days; 14 capsule. EpiPen 0.3 mg Injection auto- injector - inject 1 pen by INTRAMUSCULAR route one time Inject into the outer portion of the thigh, through clothing if necessary. Indicated in the emergency treatment of allergic reactions; 1 box. Norvasc 5 mg Oral Tablet - take 1 tablet by ORAL route once daily; 20 tablet. - Medication Reconciliation Form, Thank You Letter, Antibiotic Education, Prescription Opioid Use form. - Follow up: Private Physician; When: 2 - 3 days; Reason: Recheck today's complaints, Continuance of care, Re-evaluation by your physician. Follow up: Jun Combs; When: 2 - 3 days; Reason: Recheck today's complaints, Continuance of care, Re-evaluation by your physician. - Problem is new. - Symptoms have improved. - Notes: Stop taking Benazepril, and start taking Norvasc for your blood pressure. Do not take Cipro, take Macrobid as directed Signatures: Dispatcher [employer] EDEd Santamaria jb1 Kirstie Denson RN RN sv Anderson, Corey, MD MD cha Ballard, Brenda, RN RN Alex Burger, GRIFFIN DOCTOR CHIROPRACTIC pm1 Corrections: (The following items were deleted from the chart) 09:13 08:47 12/15/2017 08:47 Discharged to Home. Impression: Angioneurotic edema; Essential jb1 (primary) hypertension. Condition is Stable. Discharge Instructions: Allergies, Adult, Angioedema, Angioedema, [id number], Allergies, Ypiu-qs-Erif, Hypertension, Hypertension, [id number]-Lzfy, How to Take Your Blood Pressure, [id number], Managing Your Hypertension. Prescriptions for Benadryl 25 mg Oral Capsule - take 1 capsule by ORAL route every 6 hours As needed; 30 tablet, Pepcid 20 mg Oral Tablet - take 1 tablet by ORAL route every 12 hours for 10 days; 20 tablet, Prednisone 20 mg Oral Tablet - take 2 tablet by ORAL route once daily for 5 days; 10 tablet, Macrobid 100 mg Oral Capsule - take 1 capsule by ORAL route every 12 hours for 7 days; 14 capsule, EpiPen 0.3 mg Injection auto-injector - inject 1 pen by INTRAMUSCULAR route one time Inject into the outer portion of the thigh, through clothing if necessary. Indicated in the emergency treatment of allergic reactions; 1 box, Norvasc 5 mg Oral Tablet - take 1 tablet by ORAL route once daily; 20 tablet. and Forms are Medication Reconciliation Form, Thank You Letter, Antibiotic Education, Prescription Opioid Use. Follow up: Private Physician; When: 2 - 3 days; Reason: Recheck today's complaints, Continuance of care, Re-evaluation by your physician. Follow up: Jun Combs; When: 2 - 3 days; Reason: Recheck today's complaints, Continuance of care, Re-evaluation by your physician. Problem is new. Symptoms have improved. pm1
[2017-12-15 09:18] VITALS: TEMP 98.7
[2017-12-15 09:21] VITALS: BP 103/73; O2SAT 97
== END 2017-12-15 09:13 | disposition home or self-care (01) ==
LOC: ER 06:55
DX: I10 Essential (primary) hypertension (principal); F32.9 Major depressive disorder, single episode, unspecified; F41.9 Anxiety disorder, unspecified; Z79.82 Long term (current) use of aspirin; Z88.2 Allergy status to sulfonamides
CPT/HCPCS: 36415; 80053; 85025; 96361; 96374; 96375; 99284; J2930; J7512

== ENCOUNTER 2020-09-21 03:46 | Emergency (ER) | payer OTHER ==
--- OUTSIDE RECORDS SUMMARY | 2020-09-21 03:49 | XMS REPORT | Continuity of Care Document ---
:1945 Author Organization [facility] t Address [address] [place] [address] Dr. Garcia. [address] [place] [address] Care Team Providers Name Role Phone Raghu Wlaker MD Attending Clinician Problems This patient has no known problems. Allergies, Adverse Reactions, Alerts This patient has no known allergies or adverse reactions. Medications This patient has no known medications. Procedures This patient has no known procedures. Encounters Start End Encounter Admission Attending Care Care Encounter Source Date/Time Date/Time Type Type Clinicians Facility Department ID 2019-09-13 2019-09-13 Office JONELLE Walker [id number] 11:09:01 13:29:16 Visit Hakeem Sosa [id number] Nicole [id number] [place] [id number] nal 092 Building Results This patient has no known results.
[2020-09-21] MEDS ORDERED: ACETAMINOPHEN 325 MG TABLET ONE (06:26)
--- NOTE | 2020-09-21 06:58 | ER ---
Nurse's Notes [facility] Name: Astrid Cash Age: 75 yrs Sex: Female : 1945 Arrival Date: 09/21/2020 Time: 03:51 Bed 8 Private MD: Diagnosis: Fall-Mechanical;Head Contusion;Shoulder Contusion, Left Presentation: 09/21 03:51 Chief complaint: EMS states: Called for patient who fell while using walker to go to [facility] the bathroom this morning; Reports pain to back of head and left shoulder, no deformity noted; No LOC. Care prior to arrival: None. Mechanism of Injury: Fall from standing position. Trauma event details: Injury occurred in the [facility], Injury occurred: at home. Injury occurred: September 21, 2020 Injury occurred at: 03:00. 03:51 Acuity: [place] 2 lp1 03:51 Method Of Arrival: EMS: [facility] 1 03:55 Coronavirus screen: Client denies travel out of the [place] in the last 14 days. At this lp1 time, the client does not indicate any symptoms associated with coronavirus-19. Ebola Screen: No symptoms or risks identified at this time. Initial Sepsis Screen: Does the patient meet any 2 criteria? No. Patient's initial sepsis screen is negative. Does the patient have a suspected source of infection? No. Patient's initial sepsis screen is negative. Risk Assessment: Do you want to hurt yourself or someone else? Patient reports no desire to harm self or others. Onset of symptoms was September 21, 2020 at 03:00. Historical: - Allergies: 03:56 Sulfa (Sulfonamide Antibiotics); lp1 - Home Meds: 03:56 metoprolol tartrate 100 mg Oral tab 1 tab once daily [Active]; lp1 benazepril-hydrochlorothiazide 20-12.5 mg Oral tab 1 tab once daily [Active]; aspirin 81 mg Oral TbEC 1 tab once daily [Active]; gabapentin 600 mg oral tab 3 times per day [Active]; tizanidine 4 mg oral tab nightly [Active]; hydrocodone-acetaminophen 10-325 mg Oral tab 1 tab every 6 hours [Active]; prednisone 3mg Oral tab once daily [Active]; Cizmia [Active]; vit D3 2000 IU daily [Active]; Cymbalta 60 mg Oral cpDR 2 caps once daily [Active]; hydroxyzine HCl 10 mg Oral tab daily [Active]; - PMHx: 03:56 Anxiety; Chronic pain; Depression; Hypertension; Rheumatoid Arthritis; lp1 - PSHx: 03:56 Back surgery; Neck surgery; hysterectomy; ; Cholecystectomy; lp1 - Immunization history:: Adult Immunizations up to date. - Social history:: Smoking status: Patient denies any tobacco usage or history of. - Immunization history: Last tetanus immunization: unknown. Screenin:02 Abuse screen: Denies threats or abuse. Denies injuries from another. Nutritional lp1 screening: No deficits noted. Tuberculosis screening: No symptoms or risk factors identified. Fall Risk Total Baker Fall Scale indicates High Risk Score (45 or more points). Fall prevention measures have been instituted. Side Rails Up X 2 Frequent Obs/Assessments Occuring As available patient and family educated on Fall Prevention Program and Strategies. Primary Survey: 04:03 NO uncontrolled hemorrhage observed. A: The patient is alert. Airway: patent, No lp1 supplemental oxygen in use on arrival. Breathing/Chest: Respiratory effort: spontaneous, unlabored, Chest inspection: symmetrical rise and fall of the chest. Circulation: Skin color: pink, Skin temperature: warm, dry. Disability Alert. Exposure/Environment: There is no evidence of uncontrolled external bleeding. Obvious injury(ies) are noted at this time: Small hematoma to scalp; patient reports left shoulder pain. 05:00 Reassessment Airway Airway Patent Breathing/Chest Respiratory effort Spontaneous lp1 Unlabored Chest inspection Symmetrical Circulation Temperature Warm Dry Disability Alert. Secondary Survey: 05:34 HEENT: Head Other small hematoma to back of head, skin intact. Gastrointestinal: No lp1 deficits noted. : No deficits noted. Musculoskeletal: Circulation, motion, and sensation intact. Reports pain in left shoulder. Assessment: 04:00 General: Appears uncomfortable, Behavior is appropriate for age. Pain: Complains of lp1 pain in scalp, left shoulder Pain currently is 10 out of 10 on a pain scale. Neuro: Level of Consciousness is awake, alert, obeys commands, Oriented to person, place, situation. EENT: No signs and/or symptoms were reported regarding the EENT system. Cardiovascular: Patient's skin is warm and dry. Respiratory: Airway is patent Respiratory effort is even, unlabored, Respiratory pattern is regular, Breath sounds are clear bilaterally. GI: Abdomen is non-distended. : No signs and/or symptoms were reported regarding the genitourinary system. Derm: Skin is pink, warm \T\ dry. Musculoskeletal: Circulation, motion, and sensation intact. Reports pain in left shoulder. 06:00 Reassessment: Assisted patient to bsc, steady gait noted; reports soreness to left lp1 shoulder. 07:30 Reassessment: Patient appears in no apparent distress at this time. Patient and/or ph family updated on plan of care and expected duration. Pain level reassessed. Patient is alert, oriented x 3, equal unlabored respirations, skin warm/dry/pink. D/C papers signed by pt, pt attempting to call ride home, currently waiting in room. 07:57 Reassessment: Pt d/c home w/ grandson. Vital Signs: 03:55 BP 127 / 73; Pulse 74; Resp 16; Temp 97(TE); Pulse Ox 96% on R/A; Weight 64.86 kg (R); lp1 Height 5 ft. 5 in. (165.10 cm); Pain 10/10; 05:35 BP 121 / 77; Pulse 65; Resp 16; Pulse Ox 96% on R/A; lp1 06:00 BP 127 / 78; Pulse 65; Resp 16; Pulse Ox 94% on R/A; lp1 07:32 BP 124 / 76; Pulse 65; Resp 18; Temp 97.3; Pulse Ox 95% on R/A; ph 03:55 Body Mass Index 23.80 (64.86 kg, 165.10 cm) lp1 Brownwood Coma Score: 04:02 Eye Response: spontaneous(4). Verbal Response: oriented(5). Motor Response: obeys lp1 commands(6). Total: 15. 07:32 Eye Response: spontaneous(4). Verbal Response: oriented(5). Motor Response: obeys ph commands(6). Total: 15. Trauma Score (Adult): 04:02 Eye Response: spontaneous(1); Verbal Response: oriented(1); Motor Response: obeys lp1 commands(2); Systolic BP: > 89 mm Hg(4); Respiratory Rate: 10 to 29 per min(4); Brownwood Score: 15; Trauma Score: 12 07:32 Eye Response: spontaneous(1); Verbal Response: oriented(1); Motor Response: obeys ph commands(2); Systolic BP: > 89 mm Hg(4); Respiratory Rate: 10 to 29 per min(4); Tiffany Score: 15; Trauma Score: 12 ED Course: 03:51 Patient arrived in ED. lp1 03:53 Gary Beach MD is Attending Physician. [facility] 03:54 Triage completed. lp1 03:56 Arm band placed on. lp1 04:02 Patient maintains SpO2 saturation greater than 95% on room air. Thermoregulation: warm lp1 blanket given to patient. 04:04 Azeb Ray RN is Primary Nurse. lp1 04:04 Patient has correct armband on for positive identification. Placed in gown. Bed in low lp1 position. Call light in reach. Pulse ox on. NIBP on. 04:59 CT Head C Spine In Process Unspecified. EDMS 05:15 Shoulder Left (2 View) XRAY In Process Unspecified. EDMS 06:22 No provider procedures requiring assistance completed. lp1 07:33 Patient did not have IV access during this emergency room visit. ph Administered Medications: 06:05 Drug: Tylenol 650 mg Route: PO; ea 06:38 Follow up: Response: No adverse reaction ea Output: 07:34 Urine: 275ml (Voided); Total: 275ml. ph Outcome: 06:57 Discharge ordered by . 7 07:33 Discharged to home ph 07:33 Discharged to home via wheelchair, with friend. 07:33 Condition: good 07:33 Discharge instructions given to patient. 07:33 Instructed on discharge instructions, follow up and referral plans. Demonstrated understanding of 07:34 Patient's length of stay in the Emergency Department was greater than 2 hours. Awaiting ph ride homePatient's length of stay extended due to 07:57 Patient left the ED. ph Signatures: Dispatcher [employer] EDMS Azeb Ray, RN NARCISA lp1 Ara Hernandez RN RN ph Antunez, Elena, RN RN ea Holmes, Maurice, MD MD [facility]
--- NOTE | 2020-09-21 06:59 | EDPHYS ---
Physician Documentation [facility] Name: Astrid Cash Age: 75 yrs Sex: Female : 1945 Arrival Date: 09/21/2020 Time: 03:51 Bed 8 Private MD: ED Physician Gary Beach HPI: 09/21 04:20 This 75 yrs old Female presents to ER via EMS with complaints of Fall Injury. mh7 04:20 Details of fall: The patient fell from an upright position, while walking. Onset: The mh7 symptoms/episode began/occurred today, at 02:30. Associated injuries: The patient sustained injury to the head, contusion, left shoulder, contusion. Severity of symptoms: At their worst the symptoms were moderate, earlier today, in the emergency department the symptoms are unchanged. Historical: - Allergies: 03:56 Sulfa (Sulfonamide Antibiotics); lp1 - Home Meds: 03:56 metoprolol tartrate 100 mg Oral tab 1 tab once daily [Active]; lp1 benazepril-hydrochlorothiazide 20-12.5 mg Oral tab 1 tab once daily [Active]; aspirin 81 mg Oral TbEC 1 tab once daily [Active]; gabapentin 600 mg oral tab 3 times per day [Active]; tizanidine 4 mg oral tab nightly [Active]; hydrocodone-acetaminophen 10-325 mg Oral tab 1 tab every 6 hours [Active]; prednisone 3mg Oral tab once daily [Active]; Cizmia [Active]; vit D3 2000 IU daily [Active]; Cymbalta 60 mg Oral cpDR 2 caps once daily [Active]; hydroxyzine HCl 10 mg Oral tab daily [Active]; - PMHx: 03:56 Anxiety; Chronic pain; Depression; Hypertension; Rheumatoid Arthritis; lp1 - PSHx: 03:56 Back surgery; Neck surgery; hysterectomy; ; Cholecystectomy; lp1 - Immunization history:: Adult Immunizations up to date. - Social history:: Smoking status: Patient denies any tobacco usage or history of. - Immunization history: Last tetanus immunization: unknown. ROS: 04:20 Constitutional: Negative for fever, chills, and weight loss, Eyes: Negative for injury, mh7 pain, redness, and discharge, Neck: Negative for injury, pain, and swelling, Cardiovascular: Negative for chest pain, palpitations, and edema, Respiratory: Negative for shortness of breath, cough, wheezing, and pleuritic chest pain, Abdomen/GI: Negative for abdominal pain, nausea, vomiting, diarrhea, and constipation, Back: Negative for injury and pain, : Negative for injury, bleeding, discharge, and swelling, Skin: Negative for injury, rash, and discoloration, Neuro: Negative for headache, weakness, numbness, tingling, and seizure, Psych: Negative for depression, anxiety, suicide ideation, homicidal ideation, and hallucinations, Allergy/Immunology: Negative for hives, rash, and allergies, Endocrine: Negative for neck swelling, polydipsia, polyuria, polyphagia, and marked weight changes. Exam: 04:20 Constitutional: This is a well developed, well nourished patient who is awake, alert, mh7 and in no acute distress. 04:20 Eyes: Pupils equal round and reactive to light, extra-ocular motions intact. Lids and lashes normal. Conjunctiva and sclera are non-icteric and not injected. Cornea within normal limits. Periorbital areas with no swelling, redness, or edema. ENT: Nares patent. No nasal discharge, no septal abnormalities noted. Tympanic membranes are normal and external auditory canals are clear. Oropharynx with no redness, swelling, or masses, exudates, or evidence of obstruction, uvula midline. Mucous membranes moist. Neck: Trachea midline, no thyromegaly or masses palpated, and no cervical lymphadenopathy. Supple, full range of motion without nuchal rigidity, or vertebral point tenderness. No Meningismus. Chest/axilla: Normal chest wall appearance and motion. Nontender with no deformity. No lesions are appreciated. Cardiovascular: Regular rate and rhythm with a normal S1 and S2. No gallops, murmurs, or rubs. Normal PMI, no JVD. No pulse deficits. Respiratory: Lungs have equal breath sounds bilaterally, clear to auscultation and percussion. No rales, rhonchi or wheezes noted. No increased work of breathing, no retractions or nasal flaring. Abdomen/GI: Soft, non-tender, with normal bowel sounds. No distension or tympany. No guarding or rebound. No evidence of tenderness throughout. Back: No spinal tenderness. No costovertebral tenderness. Full range of motion. Skin: Warm, dry with normal turgor. Normal color with no rashes, no lesions, and no evidence of cellulitis. Neuro: Awake and alert, GCS 15, oriented to person, place, time, and situation. Cranial nerves II-XII grossly intact. Motor strength 5/5 in all extremities. Sensory grossly intact. Cerebellar exam normal. Normal gait. Psych: Awake, alert, with orientation to person, place and time. Behavior, mood, and affect are within normal limits. 04:20 Head/face: Noted is contusion, that is superficial, of the left posterior scalp, tenderness, that is moderate, of the left posterior scalp. 04:20 Musculoskeletal/extremity: Extremities: noted in the left shoulder: pain, tenderness, ROM: limited active range of motion due to pain, in the left shoulder, limited passive range of motion due to pain, in the left shoulder, Circulation is intact in all extremities. Sensation intact. Compartment Syndrome exam of affected extremity: is normal. no numbness, no tingling, no sensation deficit, no palor, no weak pulses, Joints: the right shoulder displays painful range of motion, tenderness. Vital Signs: 03:55 BP 127 / 73; Pulse 74; Resp 16; Temp 97(TE); Pulse Ox 96% on R/A; Weight 64.86 kg (R); lp1 Height 5 ft. 5 in. (165.10 cm); Pain 10/10; 05:35 BP 121 / 77; Pulse 65; Resp 16; Pulse Ox 96% on R/A; lp1 06:00 BP 127 / 78; Pulse 65; Resp 16; Pulse Ox 94% on R/A; lp1 07:32 BP 124 / 76; Pulse 65; Resp 18; Temp 97.3; Pulse Ox 95% on R/A; ph 03:55 Body Mass Index 23.80 (64.86 kg, 165.10 cm) lp1 Austin Coma Score: 04:02 Eye Response: spontaneous(4). Verbal Response: oriented(5). Motor Response: obeys lp1 commands(6). Total: 15. 07:32 Eye Response: spontaneous(4). Verbal Response: oriented(5). Motor Response: obeys ph commands(6). Total: 15. Trauma Score (Adult): 04:02 Eye Response: spontaneous(1); Verbal Response: oriented(1); Motor Response: obeys lp1 commands(2); Systolic BP: > 89 mm Hg(4); Respiratory Rate: 10 to 29 per min(4); Tiffany Score: 15; Trauma Score: 12 07:32 Eye Response: spontaneous(1); Verbal Response: oriented(1); Motor Response: obeys ph commands(2); Systolic BP: > 89 mm Hg(4); Respiratory Rate: 10 to 29 per min(4); Austin Score: 15; Trauma Score: 12 MDM: 06:56 Differential diagnosis: abrasion, closed head injury, contusion, fracture. Data [facility] reviewed: vital signs, nurses notes, EMS record, radiologic studies, CT scan, plain films. Counseling: I had a detailed discussion with the patient and/or guardian regarding: the historical points, exam findings, and any diagnostic results supporting the discharge/admit diagnosis, radiology results, the need for outpatient follow up, to return to the emergency department if symptoms worsen or persist or if there are any questions or concerns that arise at home. Response to treatment: the patient's symptoms have markedly improved after treatment. 06:57 Patient medically screened. [facility] 09/21 04:29 Order name: CT Head C Spine [facility] 09/21 04:29 Order name: Shoulder Left (2 View) XRAY [facility] Administered Medications: 06:05 Drug: Tylenol 650 mg Route: PO; ea 06:38 Follow up: Response: No adverse reaction ea Disposition Summary: 09/21/20 06:57 Discharge Ordered Location: Home [facility] Problem: new [facility] Symptoms: have improved [facility] Condition: Stable [facility] Diagnosis - Fall-Mechanical 7 - Head Contusion 7 - Shoulder Contusion, Left 7 Followup: [facility] - With: Private Physician - When: 1 - 2 days - Reason: Worsening of condition, Recheck today's complaints, Continuance of care, Re-evaluation by your physician Discharge Instructions: - Discharge Summary Sheet [facility] - Shoulder Pain, [id number] [facility] - Fall Prevention in the Home, Adult, [id number] 7 - Facial or Scalp Contusion, [id number] [facility] Forms: - Medication Reconciliation Form 7 - Thank You Letter 7 - Antibiotic Education 7 - Prescription Opioid Use [facility] Signatures: Dispatcher [employer] EDAzeb Estrada RN RN lp1 Ara Hernandez RN RN ph Bárbara Ponce, RN RN Gary Jose MD MD [facility] Corrections: (The following items were deleted from the chart) 04:47 04:45 This 75 yrs old Female presents to ER via EMS with complaints of Fall mh7 Injury. [facility] 05:00 04:29 Head C Spine MPR Wo Con+CT.RAD.BRZ ordered. EDMS EDMS
[2020-09-21 08:17] VITALS: BP 124/76; TEMP 97.3; O2SAT 95
--- NOTE | 2020-09-21 09:01 | RAD REPORT ---
EXAM DESCRIPTION: RAD - Shoulder Left 2 View - 09/21/2020 5:15 am CLINICAL HISTORY: trauma Fall, trauma, pain COMPARISON: No comparisons FINDINGS: Left AC joint and glenohumeral joint arthritic changes are present. No acute fracture or d islocation.
--- NOTE | 2020-09-21 13:59 | RAD REPORT ---
EXAM DESCRIPTION: 1. CT of the head without contrast 2. CT of the cervical spine without contrast. CLINICAL HISTORY: Trauma COMPARISON: None available TECHNIQUE: Axial CT of the head obtained from the skull apex to the skull base without contrast. Axi al CT images of the cervical spine obtained from the skull base through the thoracic inlet. Sagittal and coronal reformatted images available. This exam was performed according to our departmental dose- optimization program, which includes automated exposure control, adjustment of the mA and/or kV accor ding to patient size and/or use of iterative reconstruction technique. FINDINGS: CT head: No acute intracranial hemorrhage identified. No mass, mass effect, shift of the midline, abnormal ext ra-axial fluid collection or CT evidence of acute ischemic change identified. The ventricular system is unremarkable. No acute abnormalities of the supratentorial white matter, basal ganglia, cerebell um, or brainstem. 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 The visualized paranasal sinuses and the mastoids are clear. No skull fracture identified. Visual ized orbits and globes are unremarkable. Cervical CT: Straightening of the cervical lordosis may be secondary to patient positioning. Anterior fixation and disc replacement of the cervical spine at C4-C7. Likely degenerative anterolisthesis of C7 over T1 o f 0.4 cm. Multilevel facet arthropathy. No definite hardware fracture. The atlantoaxial, atlantodenta l, and occipitoatlantal intervals are preserved. No acute fractures identified. Prevertebral soft tissues are unremarkable. Visualized skull base is intact. No fracture of the visualized facial bones. Visualized mastoid air c ells and paranasal sinuses are well aerated. Visualized thyroid is unremarkable. No cervical lymphadenopathy. No pneumothorax in the visualized lung apices. Carotid artery atherosclerosis. IMPRESSION: 1. No acute intracranial abnormality. 2. No acute fracture or subluxation of the cervical spine. 3. Multilevel degenerative change of the cervical spine with anterior fixation at C4-C7. Electronically signed by: Jonny Vázquez 09/21/2020 6:08 AM CDT Due to temporary technical issues with the PACS/Fluency reporting system, reports are being signed by the in house radiologist without review as a courtesy to ensure prompt reporting. The interpreting r adiologist is fully responsible for the content of the report.
== END 2020-09-21 07:57 | disposition home or self-care (01) ==
LOC: ER 03:46
DX: S00.83XA Contusion of other part of head, initial encounter (principal); S40.012A Contusion of left shoulder, initial encounter; W18.30XA Fall on same level, unspecified, initial encounter; Y93.01 Activity, walking, marching and hiking; I10 Essential (primary) hypertension; F41.8 Other specified anxiety disorders; Z79.82 Long term (current) use of aspirin; Z88.2 Allergy status to sulfonamides
CPT/HCPCS: 70450; 72125; 99284

== ENCOUNTER 2022-01-30 15:14 | Emergency (ER) | payer OTHER ==
--- OUTSIDE RECORDS SUMMARY | 2022-01-30 15:20 | XMS REPORT | Continuity of Care Document ---
:1945 Author Organization [facility] t Address [address] [place] [address] Dr. Garcia. [address] [place] [address] Care Team Providers Name Role Phone ZAID BURNETT Primary Care Physician Unavailable Hakeem Walker MD Attending Clinician HAKEEM WALKER Attending Clinician Unavailable HAKEEM WALKER Attending Clinician Unavailable Doctor Unassigned, [place] Attending Clinician Unavailable HAKEEM WALKER Admitting Clinician Unavailable Payers Payer Name Policy Type Policy Number Effective Date Expiration Date S ource Problems Condition Condition Condition Status Onset Resolution Last Treating Co mments Source Name Details Category Date Date Treatment Clinician Date Pain Pain Disease Active Univers 04-09 ity of 00:00: [place] 00 Medical Branch Allergies, Adverse Reactions, Alerts Allergy Allergy Status Severity Reaction(s) Onset Inactive Treating Comm ents Source Name Type Date Date Clinician NO KNOWN Drug Active Univers ALLERGIE Class ity of [facility] Social History Social Habit Start Date Stop Date Quantity Comments Source Exposure to Not sure [facility] SARS-CoV-2 (event) Medica l Branch Sex Assigned At [facility] Medical Branch History [facility] [place] Alcohol Std Drinks Medica l Branch History [facility] [place] Alcohol Binge [facility] Alcohol intake 2019-05-14 2019-05-14 [facility] 00:00:00 00:00:00 Medical Branch History SDOH 2019-05-14 2019-05-14 1 [facility] [place] Alcohol Frequency 00:00:00 00:00:00 Medical Branch Smoking Status Start Date Stop Date Source Never smoker [facility] Medical Branch Medications Ordered Filled Start Stop Current Ordering Indication Dosage Frequency Signature Comments Components Source Medication Medication Date Date Medication? Clinician (SIG) Name Name gadobenate 2020- No .2mL/kg 0.2 mL/kg, Univers dimeglumine 07-31 Intravenou i ty of (MULTIHANCE 19:30: 19:30 s, ONCE, 1 [place] -20 mL) 00 :00 dose, Wen Medical injection 08/01/19 at Bran ch 0.2 mL/kg 1430, Routine GABAPENTIN 2018-0 Yes 900mg Take 900 Un karson ORAL 1-29 mg by ity of 15:42: mouth 3 [place] [address] (three) Medical times Branch daily. MULTIVIT,CA Yes 1{tbl} Take 1 Un [place] ,MIN-D3-HER 1-29 tablet by ity of BAL #161 15:42: mouth [place] ORAL 32 daily. Medical Branch alendronate Yes 35mg Take 35 mg Univers 35 mg 1-29 by mouth ity of tablet 15:42: weekly. [place] [address] Takes on Tuesdays Branch MULTIVIT,CA 2018-0 Yes 1{tbl} Take 1 Un [place] ,MIN-D3-HER 1-29 tablet by ity of BAL #161 15:42: mouth [place] ORAL 32 daily. Medical Branch HYDROCODONE Yes 10mg Take Univer s /ACETAMINOP 1-29 10-325 mg ity of HEN (NORCO 15:42: by mouth Mohan as ORAL) 32 every 6 Medical (six) Branch hours as needed for Pain (scale 4-6) or Pain (scale 7-10). aspirin 81 Yes 81mg Take 81 mg U nivers mg chewable 1-29 by mouth ity of tablet 15:42: daily. [address] Branch alendronate Yes 35mg Take 35 mg Univers 35 mg 1-29 by mouth ity of tablet 15:42: weekly. [place] [address] Takes on Tuesdays amLODIPine Yes 5mg Take 5 mg Un [place] 5 mg tablet 1-29 by mouth ity of 15:42: daily. [place] [address] Medical Branch metoprolol Yes 100mg Take 100 Un [place] succinate 1-29 mg by ity of XL 100 mg 15:42: mouth [place] 24 hr 32 daily. Medical tablet Branch foLIC acid 0 Yes 1mg Take 1 mg Un [place] 1 mg tablet 1-29 by mouth ity of 15:42: daily. [place] [address] Medical Branch PREDNISONE 2019-0 Yes 4mg Take 4 mg Un [place] ORAL 1-29 by mouth ity of 15:42: daily. [place] [address] Medical Branch duloxetine 2019-0 Yes 120mg Take 120 Un [place] HCl 1-29 mg by ity of (CYMBALTA 15:42: mouth [place] ORAL) 32 daily. Medical Branch GABAPENTIN 2019-0 Yes 900mg Take 900 Un [place] ORAL 1-29 mg by ity of 15:42: mouth 3 [place] [address] (three) Medical times Branch daily. MULTIVIT,CA 2019-0 Yes 1{tbl} Take 1 Un [place] ,MIN-D3-HER 1-29 tablet by ity of BAL #161 15:42: mouth [place] ORAL 32 daily. Medical Branch alendronate 0 Yes 35mg Take 35 mg Univers 35 mg 1-29 by mouth ity of tablet 15:42: weekly. [place] [address] Takes on Medical Tuesdays Branch HYDROCODONE 0 Yes 10mg Take Univer s /ACETAMINOP 1-29 10-325 mg ity of HEN (NORCO 15:42: by mouth Mohan as ORAL) 32 every 6 Medical (six) Branch hours as needed for Pain (scale 4-6) or Pain (scale 7-10). aspirin 81 0 Yes 81mg Take 81 mg U nivers mg chewable 1-29 by mouth ity of tablet 15:42: daily. [place] [address] Medical Branch amLODIPine 2018-0 Yes 5mg Take 5 mg Un [place] 5 mg tablet 1-29 by mouth ity of 15:42: daily. [place] [address] Medical Branch metoprolol 0 Yes 100mg Take 100 Un [place] succinate 1-29 mg by ity of XL 100 mg 15:42: mouth [place] 24 hr 32 daily. Medical tablet Branch foLIC acid 20190 Yes 1mg Take 1 mg Un [place] 1 mg tablet 1-29 by mouth ity of 15:42: daily. [place] [address] Medical Branch PREDNISONE 2019-0 Yes 4mg Take 4 mg Un [place] ORAL 1-29 by mouth ity of 15:42: daily. [address] duloxetine 2018-0 Yes 120mg Take 120 Un [place] HCl 1-29 mg by ity of (CYMBALTA 15:42: mouth [place] ORAL) 32 daily. Medical Branch GABAPENTIN 2019-0 Yes 900mg Take 900 Un [place] ORAL 1-29 mg by ity of 15:42: mouth 3 [place] [address] (three) Medical times Branch daily. MULTIVIT,CA 2019-0 Yes 1{tbl} Take 1 Un [place] ,MIN-D3-HER 1-29 tablet by ity of BAL #161 15:42: mouth [place] ORAL 32 daily. Medical Branch alendronate 2019-0 Yes 35mg Take 35 mg Univers 35 mg 1-29 by mouth ity of tablet 15:42: weekly. [place] [address] Takes on Medical Tuesdays Branch HYDROCODONE 2019-0 Yes 10mg Take Univer s /ACETAMINOP 1-29 10-325 mg ity of HEN (NORCO 15:42: by mouth Mohan as ORAL) 32 every 6 Medical (six) Branch hours as needed for Pain (scale 4-6) or Pain (scale 7-10). aspirin 81 2019-0 Yes 81mg Take 81 mg U nivers mg chewable 1-29 by mouth ity of tablet 15:42: daily. [place] [address] Medical Branch amLODIPine 2019-0 Yes 5mg Take 5 mg Un [place] 5 mg tablet 1-29 by mouth ity of 15:42: daily. [place] [address] Medical Branch metoprolol 2019-0 Yes 100mg Take 100 Un [place] succinate 1-29 mg by ity of XL 100 mg 15:42: mouth [place] 24 hr 32 daily. Medical tablet Branch foLIC acid 2019-0 Yes 1mg Take 1 mg Un [place] 1 mg tablet 1-29 by mouth ity of 15:42: daily. [place] [address] Medical Branch PREDNISONE 2019-0 Yes 4mg Take 4 mg Un [place] ORAL 1-29 by mouth ity of 15:42: daily. [place] [address] Medical Branch duloxetine 2019-0 Yes 120mg Take 120 Un [place] HCl 1-29 mg by ity of (CYMBALTA 15:42: mouth [place] ORAL) 32 daily. Medical Branch GABAPENTIN 2019-0 Yes 900mg Take 900 Un [place] ORAL 1-29 mg by ity of 15:42: mouth 3 [place] [address] (three) Medical times Branch daily. HYDROCODONE 2019-0 Yes 10mg Take Univer s /ACETAMINOP 1-29 10-325 mg ity of HEN (NORCO 15:42: by mouth Mohan as ORAL) 32 every 6 Medical (six) Branch hours as needed for Pain (scale 4-6) or Pain (scale 7-10). MULTIVIT,CA 2019-0 Yes 1{tbl} Take 1 Un [place] ,MIN-D3-HER 1-29 tablet by ity of BAL #161 15:42: mouth [place] ORAL 32 daily. Medical Branch alendronate 2019-0 Yes 35mg Take 35 mg Univers 35 mg 1-29 by mouth ity of tablet 15:42: weekly. [place] [address] Takes on Medical Tuesdays Branch HYDROCODONE 2018-0 Yes 10mg Take Univer s /ACETAMINOP 1-29 10-325 mg ity of HEN (NORCO 15:42: by mouth [place] as ORAL) 32 every 6 Medical (six) Branch hours as needed for Pain (scale 4-6) or Pain (scale 7-10). aspirin 81 2018-0 Yes 81mg Take 81 mg U nivers mg chewable 1-29 by mouth ity of tablet 15:42: daily. [place] [address] Medical Branch amLODIPine 2018-0 Yes 5mg Take 5 mg Un [place] 5 mg tablet 1-29 by mouth ity of 15:42: daily. [place] [address] Medical Branch metoprolol 2019-0 Yes 100mg Take 100 Un [place] succinate 1-29 mg by ity of XL 100 mg 15:42: mouth [place] 24 hr 32 daily. Medical tablet Branch foLIC acid 2018-0 Yes 1mg Take 1 mg Un [place] 1 mg tablet 1-29 by mouth ity of 15:42: daily. [place] [address] Medical Branch PREDNISONE 2019-0 Yes 4mg Take 4 mg Un [place] ORAL 1-29 by mouth ity of 15:42: daily. [place] [address] Medical Branch duloxetine 2019-0 Yes 120mg Take 120 Un [place] HCl 1-29 mg by ity of (CYMBALTA 15:42: mouth [place] ORAL) 32 daily. Medical Branch aspirin 81 2019-0 Yes 81mg Take 81 mg U nivers mg chewable 1-29 by mouth ity of tablet 15:42: daily. [place] [address] Medical Branch GABAPENTIN 2019-0 Yes 900mg Take 900 Un [place] ORAL 1-29 mg by ity of 15:42: mouth 3 [place] [address] (three) Medical times Branch daily. MULTIVIT,CA 2018-0 Yes 1{tbl} Take 1 Un [place] ,MIN-D3-HER 1-29 tablet by ity of BAL #161 15:42: mouth [place] ORAL 32 daily. Medical Branch alendronate 2019-0 Yes 35mg Take 35 mg Univers 35 mg 1-29 by mouth ity of tablet 15:42: weekly. [place] [address] Takes on Tuesdays Branch HYDROCODONE 2019-0 Yes 10mg Take Univer s /ACETAMINOP 1-29 10-325 mg ity of HEN (NORCO 15:42: by mouth Mohan as ORAL) 32 every 6 Medical (six) Branch hours as needed for Pain (scale 4-6) or Pain (scale 7-10). aspirin 81 2019-0 Yes 81mg Take 81 mg U nivers mg chewable 1-29 by mouth ity of tablet 15:42: daily. [address] Branch amLODIPine 2019-0 Yes 5mg Take 5 mg Un [place] 5 mg tablet 1-29 by mouth ity of 15:42: daily. [place] [address] Medical Branch amLODIPine 2019-0 Yes 5mg Take 5 mg Un [place] 5 mg tablet 1-29 by mouth ity of 15:42: daily. [place] [address] Medical Branch metoprolol 2019-0 Yes 100mg Take 100 Un [place] succinate 1-29 mg by ity of XL 100 mg 15:42: mouth [place] 24 hr 32 daily. Medical tablet Branch foLIC acid 2019-0 Yes 1mg Take 1 mg Un [place] 1 mg tablet 1-29 by mouth ity of 15:42: daily. [place] [address] Medical Branch PREDNISONE 2019-0 Yes 4mg Take 4 mg Un [place] ORAL 1-29 by mouth ity of 15:42: daily. [place] [address] Medical Branch duloxetine 2019-0 Yes 120mg Take 120 Un [place] HCl 1-29 mg by ity of (CYMBALTA 15:42: mouth [place] ORAL) 32 daily. Medical Branch GABAPENTIN 2019-0 Yes 900mg Take 900 Un [place] ORAL 1-29 mg by ity of 15:42: mouth 3 [place] [address] (three) Medical times Branch daily. MULTIVIT,CA 2019-0 Yes 1{tbl} Take 1 Un [place] ,MIN-D3-HER 1-29 tablet by ity of BAL #161 15:42: mouth [place] ORAL 32 daily. Medical Branch alendronate 2019-0 Yes 35mg Take 35 mg Univers 35 mg 1-29 by mouth ity of tablet 15:42: weekly. [place] [address] Takes on Tuesdays Branch metoprolol 0 Yes 100mg Take 100 Un [place] succinate 1-29 mg by ity of XL 100 mg 15:42: mouth [place] 24 hr 32 daily. Medical tablet Branch HYDROCODONE 2018-0 Yes 10mg Take Univer s /ACETAMINOP 1-29 10-325 mg ity of HEN (NORCO 15:42: by mouth Mohan as ORAL) 32 every 6 Medical (six) Branch hours as needed for Pain (scale 4-6) or Pain (scale 7-10). aspirin 81 2018-0 Yes 81mg Take 81 mg U nivers mg chewable -29 by mouth ity of tablet 15:42: daily. [place] [address] Medical Branch amLODIPine 0 Yes 5mg Take 5 mg Un [place] 5 mg tablet -29 by mouth ity of 15:42: daily. [place] [address] Medical Branch metoprolol 0 Yes 100mg Take 100 Un [place] succinate 1-29 mg by ity of XL 100 mg 15:42: mouth [place] 24 hr 32 daily. Medical tablet Branch foLIC acid 0 Yes 1mg Take 1 mg Un [place] 1 mg tablet 1-29 by mouth ity of 15:42: daily. [place] [address] Medical Branch PREDNISONE 0 Yes 4mg Take 4 mg Un [place] ORAL 1-29 by mouth ity of 15:42: daily. [place] [address] Medical Branch duloxetine 0 Yes 120mg Take 120 Un [place] HCl 1-29 mg by ity of (CYMBALTA 15:42: mouth [place] ORAL) 32 daily. Medical Branch foLIC acid 0 Yes 1mg Take 1 mg Un [place] 1 mg tablet 1-29 by mouth ity of 15:42: daily. [place] [address] Medical Branch GABAPENTIN 2019-0 Yes 900mg Take 900 Un [place] ORAL 1-29 mg by ity of 15:42: mouth 3 [place] [address] (three) Medical times Branch daily. MULTIVIT,CA 2019-0 Yes 1{tbl} Take 1 Un [place] ,MIN-D3-HER 1-29 tablet by ity of BAL #161 15:42: mouth [place] ORAL 32 daily. Medical Branch alendronate 0 Yes 35mg Take 35 mg Univers 35 mg 1-29 by mouth ity of tablet 15:42: weekly. [place] [address] Takes on Tuesdays Branch PREDNISONE 2018-0 Yes 4mg Take 4 mg Un [place] ORAL 1-29 by mouth ity of 15:42: daily. [place] [address] Medical Branch HYDROCODONE 2019-0 Yes 10mg Take Univer s /ACETAMINOP 1-29 10-325 mg ity of HEN (NORCO 15:42: by mouth Mohan as ORAL) 32 every 6 Medical (six) Branch hours as needed for Pain (scale 4-6) or Pain (scale 7-10). aspirin 81 2019-0 Yes 81mg Take 81 mg U nivers mg chewable 1-29 by mouth ity of tablet 15:42: daily. [place] [address] Medical Branch amLODIPine 2019-0 Yes 5mg Take 5 mg Un [place] 5 mg tablet 1-29 by mouth ity of 15:42: daily. [place] [address] Medical Branch metoprolol 2018-0 Yes 100mg Take 100 Un [place] succinate 1-29 mg by ity of XL 100 mg 15:42: mouth [place] 24 hr 32 daily. Medical tablet Branch foLIC acid 2018-0 Yes 1mg Take 1 mg Un [place] 1 mg tablet 1-29 by mouth ity of 15:42: daily. [place] [address] Medical Branch PREDNISONE 2018-0 Yes 4mg Take 4 mg Un [place] ORAL 1-29 by mouth ity of 15:42: daily. [place] [address] Medical Branch duloxetine 2018-0 Yes 120mg Take 120 Un [place] HCl 1-29 mg by ity of (CYMBALTA 15:42: mouth [place] ORAL) 32 daily. Medical Branch GABAPENTIN 2019-0 Yes 900mg Take 900 Un [place] ORAL 1-29 mg by ity of 15:42: mouth 3 [place] [address] (three) Medical times Branch daily. MULTIVIT,CA 2019-0 Yes 1{tbl} Take 1 Un [place] ,MIN-D3-HER 1-29 tablet by ity of BAL #161 15:42: mouth [place] ORAL 32 daily. Medical Branch duloxetine 2019-0 Yes 120mg Take 120 Un [place] HCl 1-29 mg by ity of (CYMBALTA 15:42: mouth [place] ORAL) 32 daily. Medical Branch alendronate 2019-0 Yes 35mg Take 35 mg Univers 35 mg 1-29 by mouth ity of tablet 15:42: weekly. [place] [address] Takes on Medical Tuesdays Branch HYDROCODONE 2018-0 Yes 10mg Take Univer s /ACETAMINOP 1-29 10-325 mg ity of HEN (NORCO 15:42: by mouth Mohan as ORAL) 32 every 6 Medical (six) Branch hours as needed for Pain (scale 4-6) or Pain (scale 7-10). aspirin 81 2019-0 Yes 81mg Take 81 mg U nivers mg chewable 1-29 by mouth ity of tablet 15:42: daily. [place] [address] Medical Branch GABAPENTIN 2019-0 Yes 900mg Take 900 Un [place] ORAL 1-29 mg by ity of 15:42: mouth 3 [place] 32 (three) Medical times Branch daily. amLODIPine 20190 Yes 5mg Take 5 mg Un [place] 5 mg tablet 1-29 by mouth ity of 15:42: daily. [place] [address] Medical Branch metoprolol 2018-0 Yes 100mg Take 100 Un [place] succinate 1-29 mg by ity of XL 100 mg 15:42: mouth [place] 24 hr 32 daily. Medical tablet Branch foLIC acid 2018-0 Yes 1mg Take 1 mg Un [place] 1 mg tablet 1-29 by mouth ity of 15:42: daily. [place] [address] Medical Branch PREDNISONE 2018-0 Yes 4mg Take 4 mg Un [place] ORAL 1-29 by mouth ity of 15:42: daily. [place] [address] Medical Branch duloxetine 0 Yes 120mg Take 120 Un [place] HCl 1-29 mg by ity of (CYMBALTA 15:42: mouth [place] ORAL) 32 daily. Medical Branch cyclobenzap 2016-03 Yes 5mg Take 1 Univ ers rine 5 mg 1-26 tablet by ity o f tablet 00:00: mouth 3 [place] 00 (three) Medical times Branch daily. cyclobenzap 2016-03 Yes 5mg Take 1 Univ ers rine 5 mg 1-26 tablet by ity o f tablet 00:00: mouth 3 [place] 00 (three) Medical times Branch daily. cyclobenzap 2016-03 Yes 5mg Take 1 Univ ers rine 5 mg 1-26 tablet by ity o f tablet 00:00: mouth 3 [place] 00 (three) Medical times Branch daily. cyclobenzap 2016-03 Yes 5mg Take 1 Univ ers rine 5 mg 1-26 tablet by ity o f tablet 00:00: mouth 3 [place] 00 (three) Medical times Branch daily. cyclobenzap 2016-03 Yes 5mg Take 1 Univ ers rine 5 mg 1-26 tablet by ity o f tablet 00:00: mouth 3 [place] 00 (three) Medical times Branch daily. cyclobenzap 2016-03 Yes 5mg Take 1 Univ ers rine 5 mg 1-26 tablet by ity o f tablet 00:00: mouth 3 00 (three) Medical times Branch daily. cyclobenzap 2016-03 Yes 5mg Take 1 Univ ers rine 5 mg 1-26 tablet by ity o f tablet 00:00: mouth 3 00 (three) Medical times Branch daily. cyclobenzap 2016-03 Yes 5mg Take 1 Univ ers rine 5 mg 1-26 tablet by ity o f tablet 00:00: mouth 3 (three) Medical times Branch daily. cyclobenzap 2016-03 Yes 5mg Take 1 Univ ers rine 5 mg 1-26 tablet by ity o f tablet 00:00: mouth 3 (three) Medical times Branch daily. Immunizations Ordered Filled Immunization Date Status Comments [facility] e Immunization Name Name Influenza High Dose 2018-04-10 Completed Unive rsity of 00:00:00 [facility] Influenza High Dose 2018-04-10 Completed Unive rsity of 00:00:00 [facility] Influenza High Dose 2018-04-10 Completed Unive rsity of 00:00:00 [facility] Influenza High Dose 2018-04-10 Completed Unive rsity of 00:00:00 [facility] Influenza High Dose 2018-04-10 Completed Unive rsity of 00:00:00 [facility] Influenza High Dose 2018-04-10 Completed Unive rsity of 00:00:00 [facility] Influenza High Dose 2018-04-10 Completed Unive rsity of 00:00:00 [facility] Influenza High Dose 2018-04-10 Completed Unive rsity of 00:00:00 [facility] Influenza High Dose 2018-04-10 Completed Unive rsity of 00:00:00 [facility] Vital Signs Vital Name Observation Time Observation Value Comments Source Systolic blood 2019-09-13 16:28:00 140 mm[Hg] Univer sity of pressure [facility] Diastolic blood 2019-09-13 16:28:00 80 mm[Hg] Unive rsity of pressure [facility] Heart rate 2019-09-13 16:28:00 73 /min Universi of [facility] Body temperature 2019-09-13 16:28:00 36.61 Jacquelin Univ ersity of [facility] Respiratory rate 2019-09-13 16:28:00 18 /min Univ ersity of [facility] Body weight 2019-09-13 16:28:00 65.137 kg Universi ty of [facility] BMI 2019-09-13 16:28:00 23.90 kg/m2 Universi ty of [facility] Branch Systolic blood 2019-09-13 16:28:00 140 mm[Hg] Univer sity of pressure [facility] Diastolic blood 2019-09-13 16:28:00 80 mm[Hg] Unive rsity of pressure [facility] Heart rate 2019-09-13 16:28:00 73 /min Universi ty of [facility] Body temperature 2019-09-13 16:28:00 36.61 Jacquelin Univ ersity of [facility] Respiratory rate 2019-09-13 16:28:00 18 /min Univ ersity of [facility] Body weight 2019-09-13 16:28:00 65.137 kg Universi ty of [facility] BMI 2019-09-13 16:28:00 23.90 kg/m2 Universi ty of [facility] Systolic blood 2019-05-14 21:03:00 139 mm[Hg] Univer sity of pressure [facility] Branch Diastolic blood 2019-05-14 21:03:00 86 mm[Hg] Unive rsity of pressure [facility] Heart rate 2019-05-14 21:03:00 80 /min Universi ty of [facility] Body temperature 2019-05-14 21:03:00 36.5 Jacquelin Univ ersity of [facility] Respiratory rate 2019-05-14 21:03:00 16 /min Univ ersity of [facility] Body height 2019-05-14 21:03:00 165.1 cm Universi ty of [facility] Body weight 2019-05-14 21:03:00 65.772 kg Universi ty of [facility] BMI 2019-05-14 21:03:00 24.13 kg/m2 Universi ty of [facility] Branch Procedures Procedure Date / Time Performing Clinician Source Performed MR LUMBAR SPINE W WO 2019-08-01 19:22:35 Hakeem Walker [facility] Branch INSURANCE CORRESPONDENCE 2019-06-07 05:01:00 Doctor Unassigned, [facility] [place] [facility] ASSIGNMENT OF BENEFITS 2019-05-14 20:40:19 Doctor Unassigned, [facility] of [place] [facility] EXTERNAL PROVIDER RECORDS 2019-05-01 06:01:00 Doctor Unassigned, [facility] [place] [facility] REFERRAL- 2019-05-01 06:01:00 Doctor Unassigned, [facility] REQUEST/RESPONSE [place] [facility] Encounters Start End Encounter Admission Attending Care Care Encounter Source Date/Time Date/Time Type Type Clinicians Facility Department ID 2019-09-13 2019-09-13 Office Aaron [facility] [id number] 11:09:01 13:29:16 Visit Hakeem Sosa [id number] [place] [id number] Professio [id number] 2019-09-13 2019-09-13 Office Aaron [facility] [id number] [facility] 11:09:01 13:29:16 Visit Hakeem Sosa [id number] [id number] [phone] [address] 2019-09-13 2019-09-13 Outpatient R AARONHAKEEM Godron [facility] [id number] Univers 11:20:00 11:20:00 HAKEEM WALKER itnallely [facility] 2019-09-10 2019-09-10 Telephone Aaron [facility] [id number] Univers 00:00:00 00:00:00 Hakeem Sosa [id number] [place]y [id number] [phone] [address] 2019-08-01 2019-08-01 Outpatient R AARONHAKEEM Gordon [facility] [id number] Univers 12:25:14 23:59:00 AARONHAKEEM itnallely [facility] 2019-08-01 2019-08-01 [facility] [id number] Univers 12:25:00 23:59:00 Encounter Hakeem Sosa [id number] [id number] [id number] [facility] 804 Branch 2019-06-07 2019-06-07 Orders Doctor REJI [id number] Univers 00:00:00 00:00:00 Only Unassigned, FLAVIO [id number] ity of [place] [facility] [id number] [place] as [id number] [address] 2019-05-14 2019-05-14 Office Aaron [facility] [id number] Univers 14:40:44 15:42:51 Visit Hakeem Dupreeton [id number] ity of [id number] [place] [facility] [phone] Nv dical nal 092 [facility] 2019-05-14 2019-05-14 Outpatient R HAKEEM WALKER [facility] [id number] Univers 15:00:00 15:00:00 HAKEEM WALKER ity of [facility] 2019-05-14 2019-05-14 Orders Doctor REJI [id number] Univers 00:00:00 00:00:00 Only Unassigned, FLAVIO [id number] ity of [place] [facility] [id number] [place] as [id number] [address] 2019-05-01 2019-05-01 Orders Doctor REJI [id number] Univers 00:00:00 00:00:00 Only Unassigned, FLAVIO [id number] ity of [place] [facility] [id number] [place] as [phone] [address] Results Test Test Test Results Result Source Description Time Comments Comments MR LUMBAR SPINE 2019-07- HISTORY: Chronic back [facility] WO CONTRAST 21 pain. History of prior [facility] 19:39:34 lumbar surgery.. Branch TECHNIQUE: Sagittal T2 FRFSE, T1, STIR and axial T2 FRFSE T1 studies oflumbar spines are obtained. Additional coronal T2 FRFSE study is alsoobtained. Contrast enhanced fat sat sagittal and axial T1 studies were repeated afterintravenous injection of 13 mL of MultiHance. FINDINGS: Comparison has been made with lumbar spine radiographs ofNakul 2015. No aggressive lesions of the bones detected. Spinal canalappears to be of adequate size and normal conus/cauda equina are found atthe level of T12. Visualized retroperitoneum is unremarkable for aorticaneurysm or enlarged lymph nodes or hydronephrosis. 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 T12-L1: Old fracture of L1 which has lost more than 70% of its height.Prominent Schmorl's node in the lower plate of T12 could also be secondaryto remote trauma. Disc degeneration with prominent bulging disc andmarkedly thickened ligament secondary to hypertrophic facet arthritis isnoted causing spinal stenosis with flattening of the spinal cord in APdimension.Foraminal narrowing noted on both sides with probable bilateral nerve rootcompression. L1-L2: Disc degeneration with narrowing of the posterior portion of thedisc space by more than 70%, grade 1 spondylolisthesis of L1 over L2,prominent disc osteophyte complex encroaching throughout the spinal canal.There is possibly a focal left posterior disc herniation. Additionalencroachment noted by moderately thickened ligament secondary tohypertrophic facet arthritis causing spinal stenosis with mild compressionof the conus medullaris portion. Foraminal encroachment noted on both sideswithout significant nerve root compression. Old fracture of right upper plate of L2 noted with proximally 15% loss ofheight. L2-L3: Degenerative disc disease with narrowing of the disc space by 30%,grade 1 spondylolisthesis of L2 over L3, mild diffuse bulging of the discand thickened ligaments from facet arthritis causing thecal saccompression. Foraminal encroachment is not significant. L3-L4: Hardware into L3 appear to be in good position. No hardware-relatedcomplicati ons appreciated. Disc degeneration noted with prominent bulging of the disc causing minimalthecal sac compression. Foraminal encroachment noted on both sides withoutsignificant nerve root compression. L4-L5: Old trauma to lower plate of L4 with development of prominentSchmorl's node. Disc degeneration with prominent disc osteophyte complexencroaching into the spinal canal causing mild thecal sac compression.Bilateral facet arthritis along with bulging disc/osteophytes notedencroaching into the left neural foramen without significant nerve rootcompression. L5-S1: Hardware into L5 and S1 appear to be in good position. Severe discspace narrowing noted by more than 80%, shallow Schmorl's nodes are seen inthe vertebral endplates, minimal anterior listhesis of L5 over S1 notedwith prominent disc osteophyte complex along the ventral vertebral margins.Small disc osteophyte complex noted encroaching into the spinal canalwithout significant thecal sac compression. Foraminal encroachment noted onboth sides without significant nerve root compression. CONCLUSIONS:1. Mild mid lumbar kyphoscoliosis with multilevel degenerative disc diseaseand facet arthritis. Postoperative changes of laminectomy and removal ofthe spinous processes at L3-L4-L5. Hardware into L3 and L5-S1 in goodposition. No hardware-related complications visualized.2. Old fracture of L1 which has lost more than 70% of its height. Oldfracture with prominent Schmorl's node in the lower plate of L4 and oldfracture of the right upper plate of L2.3. Prominent disc osteophyte complex and thickened ligaments from facetarthritis causing spinal stenosis at T12-L1, L1-L2 with thecal saccompression. Focal disc herniation suspected in left side of the spinalcanal at L1-L2 causing more compression of the left side of the thecal sacand mild pressure on the underlying conus medullaris. X line4. Contrast enhanced evaluation showed no abnormal enhancement in thevisualized portions of the spinal cord, in the bones or paravertebral softtissues. Minimal enhancement noted of intrathecal portion of the right B3jpgnn root. [facility], Radiant Results Inft User - 08/01/2019 2:40 PM CDTHISTORY: Chronic back pain. History of prior lumbar surgery..TECHNIQUE: Sagittal T2 FRFSE, T1, STIR and axial T2 FRFSE T1 studies oflumbar spines are obtained. Additional coronal T2 FRFSE study is alsoobtained.Contrast enhanced fat sat sagittal and axial T1 studies were repeated afterintravenous injection of 13 mL of MultiHance.FINDINGS: Comparison has been made with lumbar spine radiographs ofFebruary 2015. No aggressive lesions of the bones detected. Spinal canalappears to be of adequate size and normal conus/cauda equina are found atthe level of T12. Visualized retroperitoneum is unremarkable for aorticaneurysm or enlarged lymph nodes or hydronephrosis. Double collectingsystem of the left kidney noted without hydronephrosis.T12-L1: Old fracture of L1 which has lost more than 70% of its height.Prominent Schmorl's node in the lower plate of T12 could also be secondaryto remote trauma. Disc degeneration with prominent bulging disc andmarkedly thickened ligament secondary to hypertrophic facet arthritis isnoted causing spinal stenosis with flattening of the spinal cord in APdimension.Foraminal narrowing noted on both sides with probable bilateral nerve rootcompression.L1-L2: Disc degeneration with narrowing of the posterior portion of thedisc space by more than 70%, grade 1 spondylolisthesis of L1 over L2,prominent disc osteophyte complex encroaching throughout the spinal canal.There is possibly a focal left posterior disc herniation. Additionalencroachment noted by moderately thickened ligament secondary tohypertrophic facet arthritis causing spinal stenosis with mild compressionof the conus medullaris portion. Foraminal encroachment noted on both sideswithout significant nerve root compression.Old fracture of right upper plate of L2 noted with proximally 15% loss ofheight.L2-L3: Degenerative disc disease with narrowing of the disc space by 30%,grade 1 spondylolisthesis of L2 over L3, mild diffuse bulging of the discand thickened ligaments from facet arthritis causing thecal saccompression. Foraminal encroachment is not significant.L3-L4: Hardware into L3 appear to be in good position. No hardware-relatedcomplicati ons appreciated.Disc degeneration noted with prominent bulging of the disc causing minimalthecal sac compression. Foraminal encroachment noted on both sides withoutsignificant nerve root compression.L4-L5: Old trauma to lower plate of L4 with development of prominentSchmorl's node. Disc degeneration with prominent disc osteophyte complexencroaching into the spinal canal causing mild thecal sac compression.Bilateral facet arthritis along with bulging disc/osteophytes notedencroaching into the left neural foramen without significant nerve rootcompression.L5-S1: Hardware into L5 and S1 appear to be in good position. Severe discspace narrowing noted by more than 80%, shallow Schmorl's nodes are seen inthe vertebral endplates, minimal anterior listhesis of L5 over S1 notedwith prominent disc osteophyte complex along the ventral vertebral margins.Small disc osteophyte complex noted encroaching into the spinal canalwithout significant thecal sac compression. Foraminal encroachment noted onboth sides without significant nerve root compression.CONCLUSIONS:1. Mild mid lumbar kyphoscoliosis with multilevel degenerative disc diseaseand facet arthritis. Postoperative changes of laminectomy and removal ofthe spinous processes at L3-L4-L5. Hardware into L3 and L5-S1 in goodposition. No hardware-related complications visualized.2. Old fracture of L1 which has lost more than 70% of its height. Oldfracture with prominent Schmorl's node in the lower plate of L4 and oldfracture of the right upper plate of L2.3. Prominent disc osteophyte complex and thickened ligaments from facetarthritis causing spinal stenosis at T12-L1, L1-L2 with thecal saccompression. Focal disc herniation suspected in left side of the spinalcanal at L1-L2 causing more compression of the left side of the thecal sacand mild pressure on the underlying conus medullaris. X line4. Contrast enhanced evaluation showed no abnormal enhancement in thevisualized portions of the spinal cord, in the bones or paravertebral softtissues. Minimal enhancement noted of intrathecal portion of the right T1bfnar root.
--- NOTE | 2022-01-30 17:10 | RAD REPORT ---
EXAM DESCRIPTION: CT - Head C Spine Cap Wo Con - 01/30/2022 4:48 pm CLINICAL HISTORY: Trauma, head and neck injury. Chest, abdomen and pelvis pain. fall COMPARISON: Head C Spine Mpr Wo Con dated 09/21/2020 TECHNIQUE: CT head without contrast. CT cervical spine without contrast with coronal and sagittal reformatted images. CT chest, abdomen and pelvis without contrast with coronal and sagittal reformatted images of the spi ne. All CT scans are performed using dose optimization technique as appropriate and may include automated exposure control or mA/KV adjustment according to patient size. FINDINGS: CT HEAD WITHOUT CONTRAST: No intracranial hemorrhage, hydrocephalus or extra-axial fluid collection. Moderate brain atrophy. 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 No areas of brain edema or midline shift. The paranasal sinuses and mastoids are clear. The calvarium is intact. CT CERVICAL SPINE WITHOUT CONTRAST: Hardware is in place with bony fusion spanning C4-7. Chronic anterior subluxation of C7 on T1 noted, 4-5 mm. The prevertebral soft tissues are normal in thickness.No finding to suggest acute fracture. D egenerative levoscoliosis is present. CT CHEST, ABDOMEN, PELVIS WITHOUT CONTRAST: NOTE: Lack of contrast is a significant limitation in the assessment of trauma related findings. Spec ifically, solid organ, vascular and bowel evaluation is significantly limited. The lungs are clear.No pneumothorax or pericardial/pleural fluid. No evidence of intra-abdominal visceral injury, free fluid or free air is seen within the above detai led limitations. Extensive postsurgical changes noted lumbar spine. Chronic appearing moderate compression fracture af fects L1 with [id number] canal narrowing. No acute fractures. IMPRESSION: Negative for acute traumatic findings within the above detailed limitations.
--- NOTE | 2022-01-30 17:12 | RAD REPORT ---
EXAM DESCRIPTION: CT - CTFB CLINICAL HISTORY: fall Fall, trauma, facial pain and swelling COMPARISON: <Comparisons> TECHNIQUE: Axial 2 mm thick images of the face were obtained with sagittal and coronal reconstructio n images. All CT scans are performed using dose optimization technique as appropriate and may include automated exposure control or mA/KV adjustment according to patient size. FINDINGS: No acute facial bone fracture is seen.The mandible is intact. The globes and orbital contents are grossly unremarkable.The paranasal sinuses and mastoids are clear . IMPRESSION: Negative for facial bone fracture.
--- NOTE | 2022-01-30 17:38 | RAD REPORT ---
EXAM DESCRIPTION: RAD - Humerus Right - 01/30/2022 5:32 pm CLINICAL HISTORY: PAIN COMPARISON: No comparisons FINDINGS: Mild diffuse osteopenia is seen. Mild to moderate AC joint and glenohumeral joint arthriti c changes. No acute fracture or dislocation seen.
--- NOTE | 2022-01-30 17:39 | RAD REPORT ---
EXAM DESCRIPTION: RAD - Forearm Right - 01/30/2022 5:32 pm CLINICAL HISTORY: PAIN COMPARISON: No comparisons FINDINGS: Diffuse osteopenia is seen. No acute fracture or dislocation is evident.
--- NOTE | 2022-01-30 20:31 | ER ---
Nurse's Notes [facility] Name: Astrid Cash Age: 76 yrs Sex: Female : 1945 Arrival Date: 01/30/2022 Time: 15:20 Bed 9 Private MD: Diagnosis: Fall on same level, unspecified;Pain in right forearm;Pain in right shoulder;Contusion of unspecified part of head, initial encounter Presentation: 01/30 16:13 Chief complaint: Patient states: Lost balance when reaching for walker last night, fell ph onto R side, c/o pain to R arm, states that she hit the R side of her face, also c/o neck pain, c-collar placed by ERP. Coronavirus screen: Vaccine status: Patient reports receiving the 2nd dose of the covid vaccine. Ebola Screen: No symptoms or risks identified at this time. Initial Sepsis Screen: Does the patient meet any 2 criteria? No. Patient's initial sepsis screen is negative. Does the patient have a suspected source of infection? No. Patient's initial sepsis screen is negative. Risk Assessment: Do you want to hurt yourself or someone else? Patient reports no desire to harm self or others. Onset of symptoms was January 30, 2022. 16:13 Method Of Arrival: Wheelchair ph 16:13 Acuity: CALIXTO 4 ph 16:13 Care prior to arrival: None. Mechanism of Injury: Fall from standing position. Trauma ph event details: Injury occurred in the [facility], Injury occurred: at home. Triage Assessment: 16:16 General: Appears in no apparent distress. comfortable, Behavior is calm, cooperative, ph appropriate for age. Pain: Complains of pain in right arm and neck. Neuro: Level of Consciousness is awake, alert, obeys commands, Oriented to person, place, time, situation. Trauma Activation: Not Applicable Physician: ED Physician; Name: ; Notified At: ; Arrived At: Physician: General Surgeon; Name: ; Notified At: ; Arrived At: Physician: Radiology; Name: ; Notified At: ; Arrived At: Physician: Respiratory; Name: ; Notified At: ; Arrived At: Physician: Lab; Name: ; Notified At: ; Arrived At: Historical: - Allergies: 16:12 Sulfa (Sulfonamide Antibiotics); ph - PMHx: 16:12 Anxiety; Chronic pain; Depression; Hypertension; Rheumatoid Arthritis; ph - PSHx: 16:12 back surgery; Cholecystectomy; ; hysterectomy; neck surgery; ph - Immunization history:: Adult Immunizations unknown. - Social history:: Smoking status: Patient denies any tobacco usage or history of. - Immunization history: Last tetanus immunization: unknown. Screenin:23 Abuse screen: Denies threats or abuse. Denies injuries from another. Nutritional ph screening: No deficits noted. Tuberculosis screening: No symptoms or risk factors identified. Fall Risk Fall in past 12 months (25 points). No secondary diagnosis (0 pts). No IV (0 pts). Ambulatory Aid- Crutches/Cane/Walker (15 pts). Gait- Normal/Bed Rest/Wheelchair (0 pts) Mental Status- Oriented to own ability (0 pts). Total Baker Fall Scale indicates High Risk Score (45 or more points). Fall prevention measures have been instituted. Side Rails Up X 2 Placed Close to Nursing Station Frequent Obs/Assessments Occuring Family Present and informed to notify staff if the need to leave the bedside As available patient and family educated on Fall Prevention Program and Strategies. Primary Survey: 16:30 NO uncontrolled hemorrhage observed. A: The client is awake and alert. The airway is ph patent. Breathing/Chest: Spontaneous respiratory effort, equal unlabored respirations, breath sounds clear bilaterally, regular pattern, symmetrical chest rise and fall. Circulation: No external hemorrhage present. Regular and strong central pulse, skin warm/dry/normal color. Disability Pupils are equal, round, reactive to light and accommodation. Client is alert. Exposure/Environment: There is no evidence of uncontrolled external bleeding. No obvious injuries are noted at this time. 20:58 Reassessment Breathing: Spontaneous respiratory effort, equal unlabored respirations, tw5 breath sounds clear bilaterally, regular pattern with symmetrical chest rise and fall. Secondary Survey: 16:30 HEENT: No deficits noted. Musculoskeletal: Circulation, motion, and sensation intact. ph Range of motion: intact in all extremities, Reports pain in right arm. Assessment: 16:20 General: Appears in no apparent distress. Behavior is calm, cooperative, appropriate ph for age. Pain: Complains of pain in neck and right arm. Neuro: Level of Consciousness is awake, alert, obeys commands, Oriented to person, place, time, situation. Cardiovascular: Capillary refill < 3 seconds in bilateral fingers Patient's skin is warm and dry. Respiratory: Airway is patent Respiratory effort is even, unlabored. GI: No signs and/or symptoms were reported involving the gastrointestinal system. Derm: Skin is healthy with good turgor, Skin is pink, warm \T\ dry. Musculoskeletal: Circulation, motion, and sensation intact. Range of motion: intact in all extremities. 20:58 Musculoskeletal: Circulation, motion, and sensation intact. Range of motion:. tw5 Vital Signs: 16:13 BP 149 / 72; Pulse 61; Resp 16; Temp 97.4; Pulse Ox 97% on R/A; Weight 64.86 kg; Height ph 5 ft. 4 in. (162.56 cm); 16:13 Body Mass Index 24.55 (64.86 kg, 162.56 cm) ph Tiffany Coma Score: 16:30 Eye Response: spontaneous(4). Verbal Response: oriented(5). Motor Response: obeys ph commands(6). Total: 15. Trauma Score (Adult): 16:30 Eye Response: spontaneous(1); Verbal Response: oriented(1); Motor Response: obeys ph commands(2); Systolic BP: > 89 mm Hg(4); Respiratory Rate: 10 to 29 per min(4); Mcgehee Score: 15; Trauma Score: 12 ED Course: 15:20 Patient arrived in ED. mr 15:32 Nando Mcguire PA is PHCP. cp 15:33 Nando Garcia MD is Attending Physician. cp 16:16 Triage completed. ph 16:17 Arm band placed on Patient placed in waiting room, Patient notified of wait time. X-ray ph ordered. CT ordered. 16:49 CT Traumagram (Head C Spine CAP wo con) In Process Unspecified. EDMS 16:49 CT Facial Bones W/O Con In Process Unspecified. EDMS 17:33 XRAY Humerus RIGHT In Process Unspecified. EDMS 17:33 XRAY Forearm RIGHT In Process Unspecified. EDMS 19:24 Patient has correct armband on for positive identification. ph 19:24 No provider procedures requiring assistance completed. ph 19:25 Patient maintains SpO2 saturation greater than 95% on room air. Thermoregulation: warm ph blanket given to patient. 19:43 Emily Rowley is Primary Nurse. tw5 20:58 Patient did not have IV access during this emergency room visit. Administered Medications: 20:51 Drug: fentaNYL (PF) 25 mcg Route: IM; Site: left deltoid; 20:58 Follow up: Response: No adverse reaction; Pain is decreased Medication: 19:25 VIS not applicable for this client. ph Intake: 16:30 PO: 0ml; Total: 0ml. ph Output: 16:30 Urine: 0ml; Total: 0ml. ph Outcome: 20:30 Discharge ordered by . milton 20:58 Discharged to home ambulatory, with family. 20:58 Condition: good 20:58 Discharge instructions given to patient, Instructed on discharge instructions, follow up and referral plans. Demonstrated understanding of instructions, follow-up care. 20:59 Patient left the ED. Signatures: Dispatcher [employer] Kacy White Patricia, RN RN ph Nando Mcguire, Emily Gaytan cp
--- NOTE | 2022-01-30 20:31 | EDPHYS ---
Physician Documentation [facility] Name: Astrid Cash Age: 76 yrs Sex: Female : 1945 Arrival Date: 01/30/2022 Time: 15:20 Bed 9 Private MD: ED Physician Nando Garcia HPI: 01/30 16:15 This 76 yrs old Female presents to ER via Wheelchair with complaints of Fall cp Injury, Arm Pain. 16:15 Details of fall: The patient fell from an upright position, while standing, while cp reaching for walker. Onset: The symptoms/episode began/occurred yesterday. Patient reports falling onto right side striking face against floor. No LOC. 16:15 Associated injuries: The patient sustained injury to the head, pain, tenderness, right cp arm. Historical: - Allergies: 16:12 Sulfa (Sulfonamide Antibiotics); ph - PMHx: 16:12 Anxiety; Chronic pain; Depression; Hypertension; Rheumatoid Arthritis; ph - PSHx: 16:12 back surgery; Cholecystectomy; ; hysterectomy; neck surgery; ph - Immunization history:: Adult Immunizations unknown. - Social history:: Smoking status: Patient denies any tobacco usage or history of. - Immunization history: Last tetanus immunization: unknown. ROS: 16:15 Constitutional: Negative for body aches, chills, fever, poor PO intake. cp 16:15 Eyes: Negative for injury, pain, redness, and discharge. cp 16:15 Cardiovascular: Negative for chest pain. 16:15 Respiratory: Negative for cough, shortness of breath, wheezing. 16:15 Abdomen/GI: Negative for abdominal pain, vomiting, diarrhea, constipation. 16:15 MS/extremity: Positive for pain, of the right arm, Negative for decreased range of motion, deformity. 16:15 Neuro: Negative for altered mental status, dizziness, headache, weakness. 16:15 All other systems are negative. Exam: 16:20 Constitutional: The patient appears in no acute distress, alert, awake, cp non-diaphoretic, non-toxic, well developed, well nourished, uncomfortable. 16:20 Head/face: Noted is tenderness, that is mild, of the right cheek, right ear and right cp latter day. 16:20 Eyes: Periorbital structures: appear normal, Pupils: equal, round, and reactive to light and accomodation, Extraocular movements: intact throughout, Conjunctiva: normal, no exudate, no injection, Sclera: no appreciated abnormality, Lids and lashes: appear normal, bilaterally. 16:20 ENT: External ear(s): are unremarkable, Ear canal(s): are normal, clear, TM's: dullness, bilaterally, Nose: is normal, Mouth: Lips: moist, Oral mucosa: moist, Posterior pharynx: Airway: no evidence of obstruction, patent. 16:20 Neck: C-spine: C-collar placed in ED, vertebral tenderness, that is mild, appreciated at C6 and C7, crepitus, is not appreciated. 16:20 Chest/axilla: Inspection: normal, Palpation: crepitus, is not appreciated, tenderness, is not appreciated. 16:20 Cardiovascular: Rate: normal, Rhythm: regular. 16:20 Respiratory: the patient does not display signs of respiratory distress, Respirations: normal, no use of accessory muscles, no retractions, labored breathing, is not present, Breath sounds: are clear throughout, no decreased breath sounds, no stridor, no wheezing. 16:20 Abdomen/GI: Inspection: abdomen appears normal, Palpation: abdomen is soft and non-tender, in all quadrants. 16:20 Back: pain, that is mild, of the thoracic area, ROM is painful, with all movement. 16:20 Musculoskeletal/extremity: Extremities: noted in the right arm: pain, tenderness, There is no evidence of decreased ROM, deformity, ROM: full passive range of motion, in the right arm, Pulses: noted to be 2+ in the right radial artery and left radial artery. 16:20 Neuro: Orientation: to person, place \T\ time. Mentation: is normal, Motor: moves all fours, strength is normal, Sensation: is normal, Gait: is steady, with use of walker. Vital Signs: 16:13 BP 149 / 72; Pulse 61; Resp 16; Temp 97.4; Pulse Ox 97% on R/A; Weight 64.86 kg; Height ph 5 ft. 4 in. (162.56 cm); 16:13 Body Mass Index 24.55 (64.86 kg, 162.56 cm) ph Tiffany Coma Score: 16:30 Eye Response: spontaneous(4). Verbal Response: oriented(5). Motor Response: obeys ph commands(6). Total: 15. Trauma Score (Adult): 16:30 Eye Response: spontaneous(1); Verbal Response: oriented(1); Motor Response: obeys ph commands(2); Systolic BP: > 89 mm Hg(4); Respiratory Rate: 10 to 29 per min(4); Tiffany Score: 15; Trauma Score: 12 MDM: 16:18 Patient medically screened. [facility] 20:30 Data reviewed: vital signs, nurses notes, radiologic studies, CT scan, plain films. cp 20:30 Differential diagnosis: closed head injury, contusion, fracture, multiple trauma. cp Counseling: I had a detailed discussion with the patient and/or guardian regarding: the historical points, exam findings, and any diagnostic results supporting the discharge/admit diagnosis, radiology results, to return to the emergency department if symptoms worsen or persist or if there are any questions or concerns that arise at home. Response to treatment: the patient's symptoms have markedly improved after treatment, and as a result, I will discharge patient. 01/30 16:05 Order name: XRAY Humerus RIGHT; Complete Time: 18:26 cp 01/30 18:27 Interpretation: Report reviewed. cp 01/30 16:05 Order name: XRAY Forearm RIGHT; Complete Time: 18:26 cp 01/30 18:27 Interpretation: Reviewed. cp 01/30 16:05 Order name: CT Traumagram (Head C Spine CAP wo con); Complete Time: 18:26 cp 01/30 18:27 Interpretation: Report reviewed. cp 01/30 16:30 Order name: CT Facial Bones W/O Con; Complete Time: 18:26 cp 01/30 18:28 Interpretation: Report reviewed. cp 01/30 20:19 Order name: Sling; Complete Time: 20:58 cp Administered Medications: 20:51 Drug: fentaNYL (PF) 25 mcg Route: IM; Site: left deltoid; tw5 20:58 Follow up: Response: No adverse reaction; Pain is decreased tw5 Disposition Summary: 01/30/22 20:30 Discharge Ordered Location: Home cp Problem: new cp Symptoms: have improved cp Condition: Stable cp Diagnosis - Fall on same level, unspecified cp - Pain in right forearm cp - Pain in right shoulder cp - Contusion of unspecified part of head, initial encounter cp Followup: cp - With: Private Physician - When: 1 - 2 days - Reason: Recheck today's complaints Discharge Instructions: - Discharge Summary Sheet cp - Facial or Scalp Contusion cp - Fall Prevention in the Home, Adult cp - Musculoskeletal Pain cp - Shoulder Pain cp - Shoulder Range of Motion Exercises cp Forms: - Medication Reconciliation Form cp - Thank You Letter cp - Antibiotic Education cp - Prescription Opioid Use cp Signatures: Dispatcher [employer] EDNando Maurer MD MD cha Hall, Patricia, RN RN ph Nando Mcguire, EDITH PA Emily Clifton tw5
[2022-01-30] MEDS ORDERED: FENTANYL CITR 100 MCG/2 ML ONE (20:43)
[2022-01-30 21:31] VITALS: BP 149/72; TEMP 97.4; O2SAT 97
== END 2022-01-30 20:59 | disposition home or self-care (01) ==
LOC: ER 15:14
DX: S00.83XA Contusion of other part of head, initial encounter (principal); M79.631 Pain in right forearm; M25.511 Pain in right shoulder; W18.30XA Fall on same level, unspecified, initial encounter; Z88.2 Allergy status to sulfonamides
CPT/HCPCS: 70450; 71250; 72125; 70486; 76377; 73090; 73060; 96372; 99284; J3010

== ENCOUNTER 2022-11-08 13:54 | Emergency (ER) | payer OTHER ==
[2022-11-08 15:04] LABS: Absolute Lymphocytes (CBC) 1.7 K/uL (0.7-4.9); Hematocrit 31.5 % (36.0-45.0); Lymphocytes % 19.5 % (15.3-44.8); MPV 7.3 fL (7.6-11.3); Platelets 327 thou/uL (152-406); Protime INR 0.98; RBC Red Blood Cell Count 3.89 M/uL (3.86-4.86)
[2022-11-08 15:21] LABS: Potassium 3.3 mEq/L (3.5-5.1)
[2022-11-08] MEDS ORDERED: ONDANSETRON 4 MG/2 ML VIAL ONE (15:40)
[2022-11-08] MEDS ORDERED: MORPHINE 4 MG/ML SYR ONE (15:40)
--- NOTE | 2022-11-08 16:03 | RAD REPORT ---
EXAM DESCRIPTION: CT - Head C Spine Cap W Con - 11/08/2022 3:42 pm CLINICAL HISTORY: Trauma, head and neck injury. Chest, abdomen and pelvis pain. fall COMPARISON: Head C Spine Cap Wo Con dated 01/30/2022 TECHNIQUE: CT head without contrast. CT cervical spine without contrast with coronal and sagittal reformatted images. CT chest, abdomen and pelvis with IV contrast (approximately 100 mL nonionic IV contrast) with joshi l and sagittal reformatted images of the spine. All CT scans are performed using dose optimization technique as appropriate and may include automated exposure control or mA/KV adjustment according to patient size. FINDINGS: CT HEAD WITHOUT CONTRAST: No intracranial hemorrhage, hydrocephalus or extra-axial fluid collection. Moderate generalized brain atrophy is present with moderate periventricular and deep white matter chronic microvascular ischemi c changes. No areas of brain edema or midline shift. 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 The paranasal sinuses and mastoids are clear. The calvarium is intact. CT CERVICAL SPINE WITHOUT CONTRAST: No fracture or subluxation. Multilevel cervical degenerative changes. Lower cervical hardware is pres ent. The prevertebral soft tissues are normal in thickness.5 mm degenerative anterolisthesis of C7 on T1. CT CHEST, ABDOMEN, PELVIS WITH CONTRAST: The lungs are clear.No pneumothorax or pericardial/pleural fluid. No evidence of intra-abdominal visceral injury, free fluid or free air. 10 mm left renal stone withou t hydronephrosis. Cholecystectomy clips. Sigmoid diverticulosis without diverticulitis. No acute fractures seen. Postsurgical changes are present with hardware in place in the cervical spin e and lumbar spine. IMPRESSION: Negative for acute traumatic findings.
[2022-11-08] MEDS ORDERED: KETOROLAC 30 MG/ML INJ ONE (16:54)
--- NOTE | 2022-11-08 17:06 | EDPHYS ---
Physician Documentation [facility] Name: Astrid Cash Age: 77 yrs Sex: Female : 1945 Arrival Date: 11/08/2022 Time: 13:54 Bed 10 Private MD: ED Physician Je Trent HPI: 11/08 14:20 This 77 yrs old Female presents to ER via EMS with complaints of Fall Injury. cp 14:20 Details of fall: The patient fell from an upright position, while standing. cp 14:20 Onset: The symptoms/episode began/occurred just prior to arrival. Associated injuries: cp The patient sustained injury to the head, contusion, right low back, contusion, swelling. 14:20 Patient is a 77-year-old female who presents to the emergency department after reported cp fall. Patient reports she bent over and lost her balance causing her to fall backward. She struck her right lower back against a piece of furniture and now complains of pain and swelling. Patient also reports hitting the back of her head but denies any loss of consciousness. Historical: - Allergies: 13:58 Sulfa (Sulfonamide Antibiotics); iw - PMHx: 13:58 Anxiety; Hypertension; Rheumatoid Arthritis; Depression; Chronic pain; iw - PSHx: 13:58 back surgery; Cholecystectomy; hysterectomy; neck surgery; ; iw - Immunization history:: Adult Immunizations unknown. - Social history:: Smoking status: Patient denies any tobacco usage or history of. ROS: 14:25 Constitutional: Negative for body aches, chills, fever, poor PO intake. cp 14:25 Eyes: Negative for injury, pain, redness, and discharge. cp 14:25 ENT: Negative for drainage from ear(s), ear pain, sore throat, difficulty swallowing, difficulty handling secretions. 14:25 Cardiovascular: Negative for chest pain, palpitations. 14:25 Respiratory: Negative for cough, shortness of breath, wheezing. 14:25 Abdomen/GI: Negative for abdominal pain, nausea, vomiting, and diarrhea. 14:25 Back: Positive for pain at rest, pain with movement, of the right low back, swelling. 14:25 : Negative for hematuria, burning with urination. 14:25 Neuro: Positive for headache, Negative for altered mental status, dizziness, loss of consciousness, numbness, syncope, weakness. 14:25 All other systems are negative. Exam: 14:30 Constitutional: The patient appears in no acute distress, alert, awake, cp non-diaphoretic, non-toxic, well developed, well nourished, uncomfortable. 14:30 Head/face: Noted is swelling, that is mild, of the left occipital area and right cp occipital area, tenderness, that is mild, of the left occipital area and right occipital area. 14:30 Eyes: Periorbital structures: appear normal, Pupils: equal, round, and reactive to light and accomodation, Extraocular movements: intact throughout, Sclera: no appreciated abnormality, Lids and lashes: appear normal, bilaterally. 14:30 ENT: External ear(s): are unremarkable, Nose: is normal, Mouth: Lips: moist, Oral mucosa: pink and intact, moist, Posterior pharynx: Airway: no evidence of obstruction, patent. 14:30 Neck: C-spine: vertebral tenderness, is not appreciated, crepitus, is not appreciated, ROM/movement: pain, is not appreciated, limited range of motion, is not appreciated, nuchal rigidity, is not appreciated. 14:30 Chest/axilla: Inspection: normal, Palpation: is normal, no crepitus, no tenderness. 14:30 Cardiovascular: Rate: normal, Rhythm: regular. 14:30 Respiratory: the patient does not display signs of respiratory distress, Respirations: normal, no use of accessory muscles, no retractions, labored breathing, is not present, Breath sounds: are clear throughout, no decreased breath sounds, no stridor, no wheezing. 14:30 Abdomen/GI: Inspection: abdomen appears normal, Palpation: abdomen is soft and non-tender, in all quadrants. 14:30 Back: pain, that is moderate, of the lumbar area and right low back, moderate swelling, mild ecchymosis. 14:30 Musculoskeletal/extremity: Exam is negative for decreased range of motion, deformity, injury. 14:30 Neuro: Orientation: to person, place \T\ time. Mentation: is normal, Motor: moves all fours, strength is normal, Sensation: is normal. Vital Signs: 14:36 BP 140 / 110; Pulse 98; Resp 16; Temp 98.1; Pulse Ox 100% on R/A; Pain 10/10; iw 16:01 BP 164 / 87; Pulse 89; Resp 15; Pulse Ox 100% ; Pain 8/10; jl7 16:01 Pain 8/10; jl7 17:33 BP 154 / 84; Pulse 95; Resp 18; Pulse Ox 98% on R/A; tm3 14:36 Pain Scale: Adult iw 16:01 Pain Scale: Adult jl7 16:01 Pain Scale: Adult jl7 MDM: 13:57 Patient medically screened. 15:00 Differential diagnosis: closed head injury, contusion, fracture, multiple trauma, cp hematoma. 17:06 Data reviewed: vital signs, nurses notes, lab test result(s), radiologic studies, CT cp scan. 17:06 I considered the following discharge prescriptions or medication management in the emergency department Medications were administered in the Emergency Department. See MAR. Counseling: I had a detailed discussion with the patient and/or guardian regarding the historical points, exam findings, and any diagnostic results supporting the discharge/admit diagnosis, lab results, radiology results, to return to the emergency department if symptoms worsen or persist or if there are any questions or concerns that arise at home. Response to treatment: the patient's symptoms have mildly improved after treatment, and as a result, I will discharge patient. 11/08 14:16 Order name: Basic Metabolic Panel; Complete Time: 15:29 11/08 15:29 Interpretation: Normal except: K 3.3; CRE 1.25; GFR 44. 11/08 14:16 Order name: CBC with Diff; Complete Time: 15:29 11/08 15:29 Interpretation: Normal except: HGB 10.1; HCT 31.5; MCH 25.9; RDW 17.2; MPV 7.3. 11/08 14:16 Order name: Type And Screen; Complete Time: 16:06 11/08 14:16 Order name: PT-INR; Complete Time: 15:29 11/08 18:00 Order name: ABO/RH no charge EDMS 11/08 14:31 Order name: CT Traumagram (Head C Spine CAP W Con); Complete Time: 16:06 11/08 14:16 Order name: Labs collected and sent; Complete Time: 14:53 cp Administered Medications: 15:35 Drug: morphine IVP or IV 4 mg Route: IVP; Infused Over: 4 mins; Site: right antecubital;jl7 16:01 Follow up: Pain 8/10 Adult; Response: No adverse reaction; Pain is decreased jl7 15:35 Drug: Ondansetron IVP 4 mg Route: IVP; Site: right antecubital; jl7 16:02 Follow up: Response: No adverse reaction jl7 17:00 Drug: Ketorolac IVP 10 mg 10 mg Route: IVP; Site: right antecubital; jl7 Disposition Summary: 11/08/22 17:06 Discharge Ordered Location: Home cp Problem: new cp Symptoms: have improved cp Condition: Stable cp Diagnosis - Contusion of lower back and pelvis, initial encounter cp - Fall on same level, unspecified cp - Contusion of unspecified part of head, initial encounter cp Followup: cp - With: Private Physician - When: 2 - 3 days - Reason: Recheck today's complaints Discharge Instructions: - Discharge Summary Sheet cp - Contusion cp - Facial or Scalp Contusion cp - Head Injury, Adult cp Forms: - Medication Reconciliation Form cp - Thank You Letter cp - Antibiotic Education cp - Prescription Opioid Use cp - Patient Portal Instructions cp - Leadership Thank You Letter cp Signatures: Dispatcher [employer] Humera Sutherland RN RN Nando Lopez PA PA cp Leal, Jahala RN RN jl7 Corrections: (The following items were deleted from the chart) 11/09 17:06 16:49 This 77 yrs old Female presents to ER via EMS with complaints of Fall cp Injury. cp
--- NOTE | 2022-11-08 17:06 | ER ---
Nurse's Notes [facility] Name: Astrid Cash Age: 77 yrs Sex: Female : 1945 Arrival Date: 11/08/2022 Time: 13:54 Bed 10 Private MD: Diagnosis: Contusion of lower back and pelvis, initial encounter;Fall on same level, unspecified;Contusion of unspecified part of head, initial encounter Presentation: 11/08 13:56 Chief complaint: EMS states: was bending down to adjust something on ground, her knees iw gave out , she tipped over and her back hit a desk, there's a large hematoma, she hit back of head, denies LOC, hypertensive, not on blood thinners. Coronavirus screen: At this time, the client does not indicate any symptoms associated with coronavirus-19. Ebola Screen: Patient negative for fever greater than or equal to 101.5 degrees Fahrenheit, and additional compatible Ebola Virus Disease symptoms Patient denies exposure to infectious person. Patient denies travel to an Ebola-affected area in the 21 days before illness onset. No symptoms or risks identified at this time. Initial Sepsis Screen: Does the patient meet any 2 criteria? No. Patient's initial sepsis screen is negative. Does the patient have a suspected source of infection? No. Patient's initial sepsis screen is negative. Risk Assessment: Do you want to hurt yourself or someone else? Patient reports no desire to harm self or others. Onset of symptoms was November 08, 2022. 13:56 Method Of Arrival: EMS: [facility] iw 13:56 Acuity: [place] 3 iw Historical: - Allergies: 13:58 Sulfa (Sulfonamide Antibiotics); iw - PMHx: 13:58 Anxiety; Hypertension; Rheumatoid Arthritis; Depression; Chronic pain; iw - PSHx: 13:58 back surgery; Cholecystectomy; hysterectomy; neck surgery; ; iw - Immunization history:: Adult Immunizations unknown. - Social history:: Smoking status: Patient denies any tobacco usage or history of. Screenin:00 [facility] ED Fall Risk Assessment (Adult) History of falling in the last 3 months, jl7 including since admission Yes- single mechanical fall (1 pt) Confusion or Disorientation No (0 pts) Intoxicated or Sedated No (0 pts) Impaired Gait No (0 pts) Mobility Assist Device Used Yes (1 pt) Altered Elimination No (0 pt) Score/Fall Risk Level 0 - 2 = Low Risk Oriented to surroundings, Maintained a safe environment. Abuse screen: Denies threats or abuse. Denies injuries from another. Nutritional screening: No deficits noted. Tuberculosis screening: No symptoms or risk factors identified. Assessment: 15:00 General: Appears in no apparent distress. uncomfortable, Behavior is calm, cooperative, jl7 appropriate for age. Pain: Complains of pain in [place] and low back pain Pain currently is 10 out of 10 on a pain scale. Neuro: Level of Consciousness is awake, alert, obeys commands, Oriented to person, place, time, situation. Cardiovascular: Patient's skin is warm and dry. Respiratory: Airway is patent Respiratory effort is even, unlabored, Respiratory pattern is regular, symmetrical. Derm: Skin is pink, warm \T\ dry. Musculoskeletal: Swelling present in right low back. 16:02 Reassessment: Patient appears in no apparent distress at this time. Patient and/or jl7 family updated on plan of care and expected duration. Pain level reassessed. Patient is alert, oriented x 3, equal unlabored respirations, skin warm/dry/pink. pain decreased from 10/10 to 8/10 cheryl this time. 17:00 Reassessment: Patient appears in no apparent distress at this time. No changes from jl7 previously documented assessment. Patient and/or family updated on plan of care and expected duration. Pain level reassessed. Patient is alert, oriented x 3, equal unlabored respirations, skin warm/dry/pink. Vital Signs: 14:36 BP 140 / 110; Pulse 98; Resp 16; Temp 98.1; Pulse Ox 100% on R/A; Pain 10/10; iw 16:01 BP 164 / 87; Pulse 89; Resp 15; Pulse Ox 100% ; Pain 8/10; jl7 16:01 Pain 8/10; jl7 17:33 BP 154 / 84; Pulse 95; Resp 18; Pulse Ox 98% on R/A; tm3 14:36 Pain Scale: Adult iw 16:01 Pain Scale: Adult jl7 16:01 Pain Scale: Adult jl7 ED Course: 13:55 Patient arrived in ED. iw 13:56 Nando Mcguire PA is PHCP. cp 13:56 Je Trent MD is Attending Physician. cp 13:58 Triage completed. iw 13:58 Humera Westbrook, RN is Primary Nurse. iw 13:58 Arm band placed on. iw 14:54 Initial lab(s) drawn, by me, sent to lab. T\T\S collected, blood band applied to patient. jl7 Inserted saline lock: 20 gauge in right antecubital area, using aseptic technique. Blood collected. 15:00 Patient has correct armband on for positive identification. Provided Education on: use jl7 of call [place]. 15:44 CT Traumagram (Head C Spine CAP W Con) In Process Unspecified. EDMS 18:14 No provider procedures requiring assistance completed. IV discontinued, intact, jl7 bleeding controlled, No redness/swelling at site. Pressure dressing applied. Administered Medications: 15:35 Drug: morphine IVP or IV 4 mg Route: IVP; Infused Over: 4 mins; Site: right antecubital;jl7 16:01 Follow up: Pain 8/10 Adult; Response: No adverse reaction; Pain is decreased jl7 15:35 Drug: Ondansetron IVP 4 mg Route: IVP; Site: right antecubital; jl7 16:02 Follow up: Response: No adverse reaction jl7 17:00 Drug: Ketorolac IVP 10 mg 10 mg Route: IVP; Site: right antecubital; jl7 Medication: 14:54 VIS not applicable for this client. jl7 Outcome: 17:06 Discharge ordered by . cp 18:14 Discharged to home via wheelchair, with family. jl7 18:14 Condition: stable 18:14 Discharge instructions given to patient, Instructed on discharge instructions, follow up and referral plans. Demonstrated understanding of instructions, follow-up care. 18:15 Patient left the ED. jl7 Signatures: Dispatcher [employer] EDMS Norm Turpin tm3 Humera Westbrook, RN RN iw Nando Mcguire PA PA cp Anne Recinos RN RN jl7
[2022-11-08] MEDS ORDERED: ACETAMINOPHEN 650MG/RECT SUPP PR ONE (17:07)
[2022-11-08] MEDS ORDERED: NA CHLORIDE 0.9% 0 ML ONE (17:08)
[2022-11-08 18:33] VITALS: TEMP 98.1
[2022-11-08 18:39] VITALS: BP 154/84; O2SAT 98
== END 2022-11-08 18:15 | disposition home or self-care (01) ==
LOC: ER 13:54
DX: S30.0XXA Contusion of lower back and pelvis, initial encounter (principal); S00.83XA Contusion of other part of head, initial encounter; W18.30XA Fall on same level, unspecified, initial encounter; Z88.2 Allergy status to sulfonamides
CPT/HCPCS: 85025; 80048; 36415; 86900; 86850; 85610; 86901; 70450; 72125; 71260; 74177; J2405; J7030

== ENCOUNTER 2023-12-23 15:29 | Emergency (ER) | payer OTHER ==
[2023-12-23 16:20] LABS: Absolute Basophils 0.1 K/uL (0-0.5); Absolute Eosinophils 0.3 K/uL (0-0.5); Absolute Lymphocytes (CBC) 2.9 K/uL (0.7-4.9); Absolute Monocytes 0.7 K/uL (0.1-1.3); Absolute Neutrophil 6.3 K/uL (1.8-8.0); Basophils % 1.1 % (0-1.3); Eosinophils % 2.5 % (0-4.4); Hematocrit 33.6 % (36.0-45.0); Hemoglobin 10.5 g/dL (12.0-15.0); Lymphocytes % 28.2 % (15.3-44.8); MCH 25.5 pg (27.0-35.0); MCHC 31.3 g/dL (32.0-36.0); MCV 81.4 fL (80-100); MPV 7.6 fL (7.6-11.3); Monocytes % 6.8 % (3.3-12.3); Neutrophils % 61.4 % (41.7-73.7); Platelets 353 thou/uL (152-406); RBC Red Blood Cell Count 4.13 M/uL (3.86-4.86)
[2023-12-23 16:21] LABS: Specific Gravity 1.024 (1.005-1.030); Sqamous Epithelial <5 /HPF (None Seen); Urine Bacteria <20 /HPF (<20); Urine Bilirubin NEGATIVE (Negative); Urine Blood Negative (Negative); Urine Clarity Turbid (Clear); Urine Color Yellow (Yellow); Urine Culture Reflex Order REFLEXED; Urine Glucose 4+ (Over) (Negative); Urine Ketones TRACE (Negative); Urine Microscopic Reflex YN ORDER UMIC; Urine Mucus Slight /HPF (None Seen); Urine Nitrite NEGATIVE (Negative); Urine Protein TRACE (Negative); Urine RBC <5 /HPF (None Seen); Urine Urobilinogen 1+ (Normal); Urine WBC 20-50 /HPF (<5); Urine WBC Clump Rare /HPF (None Seen); Urine Yeast (Budding) Trace /HPF (None Seen)
[2023-12-23 16:41] LABS: AST/SGOT 12 U/L (15-37); Albumin 3.4 g/dL (3.4-5.0); Albumin/Globulin Ratio 0.9 (1.1-1.8); Alkaline Phosphatase 48 U/L (45-117); Anion Gap 6.1 mEq/L (5.0-15.0); BUN Blood Urea Nitrogen 19 mg/dL (7-18); Bicarbonate 32 mEq/L (21-32); Bilirubin Total 0.4 mg/dL (0.2-1.0); Globulin 3.9 g/dL (2.3-3.5); Glomerular Filtration Rate 26 ml/min (=/>90); Glucose Level 87 mg/dL (74-106); Lipase 24 U/L (13-75); Potassium 3.1 mEq/L (3.5-5.1); Protein, Total 7.3 g/dL (6.4-8.2); Sodium Level 139 mEq/L (136-145)
[2023-12-23 16:42] LABS: ALT/SGPT < 14 U/L (13-56)
--- NOTE | 2023-12-23 17:12 | RAD REPORT ---
EXAMINATION: CT ABDOMEN AND PELVIS WITHOUT CONTRAST CLINICAL INDICATION: GI BLEED TECHNIQUE: CT abdomen and pelvis was performed, without IV contrast, as per department protocol. Axia l, sagittal and coronal reconstructions were obtained. One or more of the following dose reduction techniques were used: Automated exposure control, adjustment of the mA and kV according to the patien t size, and iterative reconstruction. Unless otherwise specified, incidental findings do not require dedicated imaging follow-up. COMPARISON: 12/14/2017 FINDINGS: The lack of intravenous contrast limits the sensitivity of this exam for evaluation of solid visceral organs, vascular structures, and retroperitoneum. LOWER CHEST: The visualized lung bases are clear. LIVER:Normal in size and contour. No focal lesion. Cholecystectomy clips. SPLEEN: Normal size. No focal lesion. PANCREAS: No mass, ductal dilation, or allison-pancreatic fluid. ADRENALS: Normal; no mass. KIDNEYS AND URETERS: Punctate calculi in the calyces of both kidneys. Moderate bilateral renal atroph y. URINARY BLADDER: Normal contour. GASTROINTESTINAL TRACT: No evidence of bowel obstruction, significant free fluid, free air or abscess . Prominent sigmoid diverticulosis coli with moderate stool retention. APPENDIX: Normal appendix. LYMPH NODES: No lymphadenopathy. MUSCULOSKELETAL: Postoperative lumbar spine with hardware in place. ADDITIONAL FINDINGS: None. IMPRESSION: Moderate sigmoid diverticulosis coli with stool retention. Moderate bilateral renal atrophy. Prominent degenerative change lumbar spine with hardware in place.
--- NOTE | 2023-12-23 17:21 | ER ---
Nurse's Notes [facility] Name: Astrid Cash Age: 78 yrs Sex: Female : 1945 Arrival Date: 12/23/2023 Time: 15:29 Bed 13 Private MD: Diagnosis: Acute Kidney Injury;Hypokalemia;Rectal Bleeding;Diverticulosis of large intestine without perforation or abscess with bleeding Presentation: 12/22 15:49 Chief complaint: Patient states: "I noticed some blood on my pad and it's coming from aa5 my rectum". Pt also reports lower abd cramping. 15:49 Acuity: [place] 3 aa5 15:49 Coronavirus screen: At this time, the client does not indicate any symptoms associated aa5 with coronavirus-19. Ebola Screen: Patient denies travel to an Ebola-affected area in the 21 days before illness onset. Initial Sepsis Screen: Does the patient meet any 2 criteria? No. Patient's initial sepsis screen is negative. Does the patient have a suspected source of infection? No. Patient's initial sepsis screen is negative. Risk Assessment: Do you want to hurt yourself or someone else? Patient reports no desire to harm self or others. Onset of symptoms was December 23, 2023. 15:49 Method Of Arrival: Ambulatory aa5 Historical: - Allergies: 15:50 Sulfa (Sulfonamide Antibiotics); aa5 - PMHx: 15:50 Anxiety; Chronic pain; Depression; Hypertension; Rheumatoid Arthritis; aa5 - PSHx: 15:50 back surgery; Cholecystectomy; ; hysterectomy; neck surgery; aa5 - Immunization history:: Adult Immunizations unknown. - Infectious Disease History:: Denies. - Social history:: Smoking status: Patient denies any tobacco usage or history of. Screenin:02 [facility] ED Fall Risk Assessment (Adult) History of falling in the last 3 months, kc6 including since admission No falls in past 3 months (0 pts) Confusion or Disorientation No (0 pts) Intoxicated or Sedated No (0 pts) Impaired Gait Yes (1 pt) Mobility Assist Device Used Yes (1 pt) Altered Elimination No (0 pt) Score/Fall Risk Level 0 - 2 = Low Risk Oriented to surroundings. Abuse screen: Denies threats or abuse. Denies injuries from another. Nutritional screening: No deficits noted. Tuberculosis screening: No symptoms or risk factors identified. Assessment: 16:02 General: Appears in no apparent distress. comfortable, well groomed, well developed, kc6 Behavior is calm, cooperative, appropriate for age. Pain: Complains of pain in abdomen Quality of pain is described as crampy, dull. Neuro: Level of Consciousness is awake, alert, obeys commands, Oriented to person, place, time, situation, Appropriate for age. Cardiovascular: Capillary refill < 3 seconds. Respiratory: Airway is patent Trachea midline Respiratory effort is even, unlabored, Respiratory pattern is regular, symmetrical. GI: Reports lower abdominal pain, cramping, rectal bleeding, bloody stool, Patient currently denies diarrhea, nausea, vomiting. : Reports incontinence. EENT: No signs and/or symptoms were reported regarding the EENT system. Derm: No signs and/or symptoms reported regarding the dermatologic system. Skin is intact, is healthy with good turgor, Skin is pink, warm \\T\\ dry. Musculoskeletal: No signs and/or symptoms reported regarding the musculoskeletal system. Circulation, motion, and sensation intact. Capillary refill < 3 seconds, Range of motion: intact in all extremities. 16:52 Reassessment: Patient appears in no apparent distress at this time. No changes from kc6 previously documented assessment. Patient and/or family updated on plan of care and expected duration. Pain level reassessed. Patient is alert, oriented x 3, equal unlabored respirations, skin warm/dry/pink. Vital Signs: 15:49 BP 115 / 73; Pulse 79; Resp 18 S; Temp 97.8(TE); Pulse Ox 98% on R/A; Weight 60.78 kg aa5 (R); Height 5 ft. 5 in. (R); 16:53 BP 125 / 72; Pulse 70; Resp 16 S; Pulse Ox 97% on R/A; kc6 15:49 Body Mass Index 22.30 (60.78 kg, 165.1 cm) aa5 ED Course: 15:36 Patient arrived in ED. mg5 15:42 Collin Hernandez MD is Attending Physician. ec2 15:49 Arm band placed on. aa5 15:50 Triage completed. aa5 15:56 Sonia Oakley RN is Primary Nurse. kc6 16:02 Patient has correct armband on for positive identification. Placed in gown. Bed in low kc6 position. Call light in reach. Side rails up X2. Adult w/ patient. Pulse ox on. NIBP on. Door closed. Noise minimized. Lights dimmed. Warm blanket given. Pillow given. Assisted to bathroom. 16:02 Patient maintains SpO2 saturation greater than 95% on room air. kc6 16:14 Inserted saline lock: 20 gauge in right antecubital area, using aseptic technique. kc6 Blood collected. Flushed with 10 mL NS. 17:06 Abdomen In Process Unspecified. EDMS 17:20 Jaquan Nava MD is Referral Physician. ec2 18:00 No provider procedures requiring assistance completed. IV discontinued, intact, kc6 bleeding controlled, No redness/swelling at site. Pressure dressing applied. Administered Medications: No medications were administered Medication: 18:01 VIS not applicable for this client. kc6 Outcome: 17:20 Discharge ordered by . ec2 18:00 Discharged to home ambulatory, with family, kc6 18:00 Condition: good 18:00 Discharge instructions given to patient, Instructed on discharge instructions, follow up and referral plans. Demonstrated understanding of instructions, follow-up care, 18:01 Patient left the ED. kc6 Signatures: Dispatcher [employer] Rosanna Zepeda RN RN nora5 Sonia Oakley RN RN kc6 Malorie Welch mg5 Collin Hernandez MD MD ec2 Corrections: (The following items were deleted from the chart) 15:51 15:49 BP 115 / 73; Pulse 79bpm; Resp 18bpm; Spontaneous; Pulse Ox 98% RA; Temp 97.8F aa5 Temporal; aa5
--- NOTE | 2023-12-23 17:21 | EDPHYS ---
Physician Documentation [facility] Name: Astrid Cash Age: 78 yrs Sex: Female : 1945 Arrival Date: 12/23/2023 Time: 15:29 Bed 13 Private MD: ED Physician Collin Hernandez HPI: 12/22 15:52 This 78 yrs old Female presents to ER via Ambulatory with complaints of Rectal ec2 Bleeding. 15:52 Patient arrives today due to concern for rectal bleeding. States that she had bright ec2 red blood per rectum. Slight abdominal pain, no nausea or vomiting. Patient reports last colonoscopy occurred many years ago. No blood thinners. No history of liver disease.. Historical: - Allergies: 15:50 Sulfa (Sulfonamide Antibiotics); aa5 - PMHx: 15:50 Anxiety; Chronic pain; Depression; Hypertension; Rheumatoid Arthritis; aa5 - PSHx: 15:50 back surgery; Cholecystectomy; ; hysterectomy; neck surgery; aa5 - Immunization history:: Adult Immunizations unknown. - Infectious Disease History:: Denies. - Social history:: Smoking status: Patient denies any tobacco usage or history of. ROS: 15:52 Constitutional: as per hpi ec2 Exam: 15:52 Constitutional: GEN: NAD Head: atraumatic Eyes: EOMI Ears: External ears are ec2 normal. CV: regular rate LUNGS: no respiratory distress ABD: non-distended, soft, nontender, not guarding, not rigid SKIN: no evidence of rashes MSK: no evidence of trauma Vital Signs: 15:49 BP 115 / 73; Pulse 79; Resp 18 S; Temp 97.8(TE); Pulse Ox 98% on R/A; Weight 60.78 kg aa5 (R); Height 5 ft. 5 in. (R); 16:53 BP 125 / 72; Pulse 70; Resp 16 S; Pulse Ox 97% on R/A; kc6 15:49 Body Mass Index 22.30 (60.78 kg, 165.1 cm) aa5 MDM: 15:52 Data reviewed: vital signs. ED course: Patient arrives today for evaluation of rectal ec2 bleeding. Examination remarkable for well-appearing hemodynamically stable nontoxic individuals otherwise in no acute distress. Will obtain lab work, urine studies, CT imaging. Differential includes brisk upper GI bleed, lower GI bleed, diverticulosis. . 17:19 ED course: Patient with diverticulosis, hemodynamically stable, is not anemic. Will ec2 discharge and have patient follow-up with GI. Return precautions given . 17:20 Patient medically screened. ec2 12/22 15:52 Order name: CBC with Diff; Complete Time: 16:30 ec2 12/22 15:52 Order name: CMP; Complete Time: 16:50 ec2 12/22 15:52 Order name: Lipase; Complete Time: 16:50 ec2 12/22 15:52 Order name: Urinalysis w/ reflexes; Complete Time: 16:30 ec2 12/22 16:30 Order name: Urine Culture EDMS 12/22 16:53 Order name: Abdomen ; Complete Time: 17:19 EDMS 12/22 15:52 Order name: IV Saline Lock; Complete Time: 16:14 ec2 12/22 15:52 Order name: Labs collected and sent; Complete Time: 16:14 ec2 Administered Medications: No medications were administered Disposition Summary: 12/23/23 17:20 Discharge Ordered Notes: Location: Home ec2 Condition: Stable ec2 Diagnosis - Acute Kidney Injury ec2 - Hypokalemia ec2 - Rectal Bleeding ec2 - Diverticulosis of large intestine without perforation or abscess with bleeding ec2 Followup: ec2 - With: Private Physician - When: - Reason: Re-evaluation by your physician Followup: ec2 - With: Jaquan Nava MD - When: - Reason: Recheck today's complaints Discharge Instructions: - Discharge Summary Sheet ec2 - Diverticulosis ec2 Forms: - Medication Reconciliation Form ec2 - Antibiotic Education ec2 - Prescription Opioid Use ec2 - Patient Portal Instructions ec2 - Leadership Thank You Letter ec2 Signatures: Dispatcher [employer] Rosanna Zepeda RN RN aa5 Collin Hernandez MD MD ec2 Corrections: (The following items were deleted from the chart) 16:53 15:53 Abdomen Pelvis W Con+CT.RAD.BRZ ordered. EDCO EDMS
[2023-12-23 21:43] VITALS: BP 115/73; TEMP 97.8; O2SAT 98
== END 2023-12-23 18:01 | disposition home or self-care (01) ==
LOC: ER 15:29
DX: N17.9 Acute kidney failure, unspecified (principal); K57.31 Diverticulosis of large intestine without perforation or abscess with bleeding; E87.6 Hypokalemia; I10 Essential (primary) hypertension
CPT/HCPCS: 36415; 74176; 80053; 81001; 83690; 85025; 87086; 87088

== ENCOUNTER 2024-06-01 12:12 | Emergency (ER) | payer OTHER ==
[2024-06-01] MEDS ORDERED: NA CHLORIDE 0.9% 1,000 ML ONE (13:21)
[2024-06-01 13:53] LABS: Absolute Basophils 0.2 K/uL (0-0.5); Absolute Eosinophils 0.1 K/uL (0-0.5); Absolute Lymphocytes (CBC) 2.1 K/uL (0.7-4.9); Absolute Monocytes 0.8 K/uL (0.1-1.3); Absolute Neutrophil 8.9 K/uL (1.8-8.0); Basophils % 1.4 % (0-1.3); Eosinophils % 0.8 % (0-4.4); Hematocrit 37.4 % (36.0-45.0); Hemoglobin 12.3 g/dL (12.0-15.0); Lymphocytes % 17.2 % (15.3-44.8); MCH 26.3 pg (27.0-35.0); MCHC 32.8 g/dL (32.0-36.0); MCV 80.1 fL (80-100); Monocytes % 6.9 % (3.3-12.3); Neutrophils % 73.7 % (41.7-73.7); Platelets 465 thou/uL (152-406); RBC Red Blood Cell Count 4.67 M/uL (3.86-4.86); Red Cell Distribution Width 16.5 % (12.1-15.2)
[2024-06-01 14:02] LABS: PT Prothrombin Time 12.9 SECONDS (10-13.0); Protime INR 1.14
[2024-06-01 14:54] LABS: Albumin/Globulin Ratio 0.7 (1.1-1.8); Anion Gap 12.2 mEq/L (5.0-15.0); Bilirubin Direct 0.4 mg/dL (0-0.2); Bilirubin Indirect, Calculated 0.6 mg/dL (0.2-0.8); Globulin 4.4 g/dL (2.3-3.5); Magnesium 1.8 mg/dL (1.6-2.4); Protein, Total 7.4 g/dL (6.4-8.2); Troponin High Sensitivity 52.8 pg/mL (<58.9)
[2024-06-01 14:59] LABS: Potassium 2.2 mEq/L (3.5-5.1)
[2024-06-01 15:23] LABS: Specific Gravity 1.022 (1.005-1.030); Sqamous Epithelial <5 /HPF (None Seen); Transitional Epithelial <5 /HPF (None Seen); Urine Bacteria <20 /HPF (<20); Urine Bilirubin 1+ (Negative); Urine Blood 1+ (Negative); Urine Clarity Extremely Turbid (Clear); Urine Color Yellow (Yellow); Urine Culture Reflex Order REFLEXED; Urine Glucose NEGATIVE (Negative); Urine Ketones 1+ (Negative); Urine Micro Reflex YN NO BILL MICROSCOPIC; Urine Mucus Slight /HPF (None Seen); Urine Nitrite NEGATIVE (Negative); Urine Protein 1+ (Negative); Urine Urobilinogen 1+ (Normal); Urine WBC >50 /HPF (<5)
[2024-06-01] MEDS ORDERED: POTASSIUM 25 MEQ EFFERV TAB ONE (15:50)
[2024-06-01] MEDS ORDERED: NS KCL 20MEQ 1,000 ML IV ONE (15:51)
--- NOTE | 2024-06-01 16:36 | RAD REPORT ---
EXAMINATION: CT ABDOMEN AND PELVIS WITHOUT CONTRAST CLINICAL INDICATION: Abdominal pain TECHNIQUE: CT abdomen and pelvis was performed, as per department protocol. IV contrast and oral was not administered.Axial, sagittal and coronal reconstructions were obtained. One or more of the following dose reduction techniques were used: Automated exposure control, adjustment of the mA and/o r kV according to the patient size, and/or iterative reconstruction. Unless otherwise specified, incidental findings do not require dedicated imaging follow-up. [id number]. COMPARISON 2023. FINDINGS: The lack of intravenous and oral contrast limits evaluation of solid organs, vessels and bowel. 8 mm calculus left renal pelvis. Minimal left hydronephrosis. Punctate additional left renal calculi. Renal arterial calcifications. Renal cortical thinning Right renal cortical thinning with renal arterial calcification. Moderate stenosis main renal arteries bilaterally. Chronic interstitial opacities within the lung bases. Cholecystectomy. Liver liver, spleen, pancreas and adrenals grossly normal. Small pericardial effusion. Post surgical changes lumbar spine. Hysterectomy. No adnexal mass Diverticula stem from colon without visualization of diverticulitis. Normal appendix. Atherosclerosis. Small umbilical hernia Chronic compression fracture L1 vertebral body. IMPRESSION: 8 millimeter calculus left renal pelvis resulting in minimal left hydronephrosis
--- NOTE | 2024-06-01 17:10 | ER ---
Nurse's Notes [facility] Name: Astrid Cash Age: 78 yrs Sex: Female : 1945 Arrival Date: 06/01/2024 Time: 12:12 Bed 7 Private MD: Mariluz Chisholm Diagnosis: Dehydration, hypokalemia Presentation: 06/01 12:32 Chief complaint: Patient states: Cough, weak, N/V/D, fever for 1 week. Coronavirus ll1 screen: Client denies travel out of the [place] in the last 14 days. cough unrelated to allergies, diarrhea, fatigue, nausea, vomiting. Client presents with at least one sign or symptom that may indicate coronavirus-19. Standard/surgical mask placed on the client. Ebola Screen: Patient denies travel to an Ebola-affected area in the 21 days before illness onset. No acute neurological deficit is noted. Initial Sepsis Screen: Does the patient meet any 2 criteria? No. Patient's initial sepsis screen is negative. Does the patient have a suspected source of infection? No. Patient's initial sepsis screen is negative. Risk Assessment: Do you want to hurt yourself or someone else? Patient reports no desire to harm self or others. Onset of symptoms was May 25, 2024. 12:32 Method Of Arrival: Wheelchair ll1 12:32 Acuity: [place] 3 ll1 Triage Assessment: 12:32 General: Appears ill, Behavior is calm, cooperative, appropriate for age. General: ll1 Reports feeling ill for fatigue for. Pain: Complains of pain in abdomen Quality of pain is described as aching, crampy. Neuro: Reports weakness. Respiratory: Reports cough that is. GI: Reports cramping, diarrhea, nausea, vomiting. Stroke Activation: Symptom onset > 6 hours Physician: ED Attending; Name: ; Notified At: ; Arrived At: Physician: Mid-Level Provider; Name: ; Notified At: ; Arrived At: Physician: [not used]; Name: ; Notified At: ; Arrived At: Physician: [not used]; Name: ; Notified At: ; Arrived At: Physician: [not used]; Name: ; Notified At: ; Arrived At: Historical: - Allergies: 12:31 Sulfa (Sulfonamide Antibiotics); ll1 - PMHx: 12:31 Anxiety; Hypertension; Depression; Chronic pain; Rheumatoid Arthritis; ll1 - PSHx: 12:31 back surgery; Cholecystectomy; ; hysterectomy; neck surgery; ll1 - Immunization history:: Adult Immunizations up to date. - Infectious Disease History:: Denies. - Social history:: Smoking status: Patient denies any tobacco usage or history of. Screenin:08 [facility] ED Fall Risk Assessment (Adult) History of falling in the last 3 months, hb including since admission No falls in past 3 months (0 pts) Confusion or Disorientation No (0 pts) Intoxicated or Sedated No (0 pts) Impaired Gait No (0 pts) Mobility Assist Device Used No (0 pt) Altered Elimination No (0 pt) Score/Fall Risk Level 0 - 2 = Low Risk Oriented to surroundings, Maintained a safe environment, Educated pt \T\ family on fall prevention, incl call for assistance when getting out of bed. Abuse screen: Denies threats or abuse. Denies injuries from another. Nutritional screening: No deficits noted. Tuberculosis screening: No symptoms or risk factors identified. Assessment: 13:43 Reassessment: Patient appears in no apparent distress at this time. Patient and/or hb family updated on plan of care and expected duration. Pain level reassessed. Patient is alert, oriented x 3, equal unlabored respirations, skin warm/dry/pink. 14:43 Reassessment: Patient appears in no apparent distress at this time. Patient and/or hb family updated on plan of care and expected duration. Pain level reassessed. Patient is alert, oriented x 3, equal unlabored respirations, skin warm/dry/pink. 17:36 Reassessment: Patient is alert, oriented x 3, equal unlabored respirations, skin aa5 warm/dry/pink. Pt cleaned of 2 episodes of watery brown diarrhea, clean brief applied. . 17:40 Reassessment: DC ON HOLD FOR FAMILY. bp Vital Signs: 12:32 BP 98 / 86; Pulse 120; Resp 18; Temp 98; Pulse Ox 99% ; Weight 58.06 kg; Height 5 ft. 5 ll1 in. ; Pain 8/10; 14:43 BP 144 / 92; Pulse 107; Resp 21; Pulse Ox 100% on R/A; hb 17:39 BP 153 / 97; Pulse 108; Resp 16; Pulse Ox 99% ; bp 12:32 Body Mass Index 21.30 (58.06 kg, 165.1 cm) ll1 12:32 Pain Scale: Adult ll1 ED Course: 12:13 Patient arrived in ED. rg4 12:13 Mariluz Chisholm DO is Private Physician. rg4 12:18 Je Trent MD is Attending Physician. sp3 12:33 Triage completed. ll1 12:33 Arm band placed on. ll1 12:33 Notified ED physician of Notified Charge Nurse of HR 120. ll1 12:54 Truong Lassiter, RN is Primary Nurse. bp 13:30 Provided Education on: tests, result times. hb 13:42 Inserted saline lock: 20 gauge in left antecubital area, using aseptic technique. hb 13:43 Basic Metabolic Panel Sent. hb 13:43 CBC with Diff Sent. hb 13:43 LFT's Sent. hb 13:43 Magnesium Sent. hb 13:43 NT PRO-BNP Sent. hb 13:43 PT-INR Sent. hb 13:43 Troponin HS Sent. hb 14:08 Patient has correct armband on for positive identification. Bed in low position. Call hb light in reach. 15:59 Abdomen In Process Unspecified. EDMS 17:40 No provider procedures requiring assistance completed. IV discontinued, intact, bp bleeding controlled, No redness/swelling at site. Pressure dressing applied. Administered Medications: 13:42 Drug: NS 0.9% IV 1000 ml IV at 1000 ml once; to be given as a bolus over 60 minutes hb Route: IV; Rate: 1000 ml; Site: left antecubital; 17:41 Follow up: IV Status: Completed infusion bp 16:14 Drug: NS 0.9% IV 1000 ml IV at 1 bolus Per protocol; to be given as a bolus over 60 bp minutes Route: IV; Rate: 1 bolus; Site: left antecubital; 17:41 Follow up: IV Status: Completed infusion bp 16:14 Drug: Potassium Chloride IV 20 mEq IV at calculated rate once; administer over 1-2 bp hours Route: IV; Rate: calculated rate; Site: left antecubital; 17:41 Follow up: IV Status: Completed infusion bp 16:14 Drug: Potassium PO Effervescent Tablet 50 mEq PO once; dissolve in 4 ounces of water or bp juice Route: PO; 17:41 Follow up: Response: No adverse reaction bp Medication: 14:09 VIS not applicable for this client. hb Outcome: 17:10 Discharge ordered by sp3 17:40 Discharged to home via wheelchair, with family, bp 17:40 Condition: stable 17:40 Discharge instructions given to patient, family, Instructed on discharge instructions, follow up and referral plans. medication usage, Demonstrated understanding of instructions, follow-up care, medications, Prescriptions given X 1, 18:11 Patient left the ED. bp Signatures: Dispatcher [employer] EDMS Rosanna Escamilla RN RN aa5 Samara Valles RN RN Ml Norton rg4 Truong Lassiter RN RN bp Lewis, Lynsay, RN RN ll1 Je Trent MD MD sp3 Corrections: (The following items were deleted from the chart) 14:45 14:43 BP 150 / 80; Pulse 116bpm; Resp 21bpm; Pulse Ox 100% RA; hb hb
--- NOTE | 2024-06-01 17:11 | EDPHYS ---
Physician Documentation [facility] Name: Astrid Cash Age: 78 yrs Sex: Female : 1945 Arrival Date: 06/01/2024 Time: 12:12 Bed 7 Private MD: Mariluz Chisholm ED Physician Je Trent HPI: 06/01 13:16 This 78 yrs old Female presents to ER via Wheelchair with complaints of Flu sp3 Symptoms. 13:16 78-year-old female with history of chronic pain, rheumatoid arthritis, hypertension, sp3 anxiety now presents to the ED with chief complaint generalized weakness, abdominal pain and "feeling sick". Patient states symptoms been going on for the last 7 to 10 days. She also complains of vomiting and diarrhea without blood or mucus. She denies fever, headache, chest pain, shortness of breath, back pain, symptoms, syncope, near syncope, bleeding, or any other signs or symptoms on ROS at this time.. Historical: - Allergies: 12:31 Sulfa (Sulfonamide Antibiotics); ll1 - PMHx: 12:31 Anxiety; Hypertension; Depression; Chronic pain; Rheumatoid Arthritis; ll1 - PSHx: 12:31 back surgery; Cholecystectomy; ; hysterectomy; neck surgery; ll1 - Immunization history:: Adult Immunizations up to date. - Infectious Disease History:: Denies. - Social history:: Smoking status: Patient denies any tobacco usage or history of. ROS: 13:17 Constitutional: Negative for fever, chills, and weight loss, Eyes: Negative for injury, sp3 pain, redness, and discharge, ENT: Negative for injury, pain, and discharge, Neck: Negative for injury, pain, and swelling, Respiratory: Negative for shortness of breath, cough, wheezing, and pleuritic chest pain, Back: Negative for injury and pain, MS/Extremity: Negative for injury and deformity, Skin: Negative for injury, rash, and discoloration, Neuro: Negative for headache, weakness, numbness, tingling, and seizure, Psych: Negative for depression, anxiety, suicide ideation, homicidal ideation, and hallucinations, Allergy/Immunology: Negative for hives, rash, and allergies, Endocrine: Negative for neck swelling, polydipsia, polyuria, polyphagia, and marked weight changes, 13:17 All other systems are negative, Exam: 13:17 Constitutional: This is a well developed, well nourished patient who is awake, alert, sp3 and in no acute distress. Head/Face: Normocephalic, atraumatic. Eyes: Pupils equal round and reactive to light, extra-ocular motions intact. Lids and lashes normal. Conjunctiva and sclera are non-icteric and not injected. Cornea within normal limits. Periorbital areas with no swelling, redness, or edema. Neck: Trachea midline, no thyromegaly or masses palpated, and no cervical lymphadenopathy. Supple, full range of motion without nuchal rigidity, or vertebral point tenderness. No Meningismus. Chest/axilla: Normal chest wall appearance and motion. Nontender with no deformity. No lesions are appreciated. Respiratory: Lungs have equal breath sounds bilaterally, clear to auscultation and percussion. No rales, rhonchi or wheezes noted. No increased work of breathing, no retractions or nasal flaring. Back: No spinal tenderness. No costovertebral tenderness. Full range of motion. Skin: Warm, dry with normal turgor. Normal color with no rashes, no lesions, and no evidence of cellulitis. MS/ Extremity: Pulses equal, no cyanosis. Neurovascular intact. Full, normal range of motion. Neuro: Awake and alert, GCS 15, oriented to person, place, time, and situation. Cranial nerves II-XII grossly intact. Motor strength 5/5 in all extremities. Sensory grossly intact. Cerebellar exam normal. Normal gait. Psych: Awake, alert, with orientation to person, place and time. Behavior, mood, and affect are within normal limits. 13:17 Cardiovascular: Rate: tachycardic, 13:17 Abdomen/GI: Diffuse pain to palpation without peritoneal signs, rebound or guarding. Heart rate noted at 120. Patient is 98/86 blood pressure mae., 13:42 ECG was reviewed by the Attending Physician. EKG demonstrates sinus tachycardia at 111 sp3 bpm with normal intervals, normal QRS except for high voltage and nonspecific diffuse ST/T changes without evidence of acute ischemia. Vital Signs: 12:32 BP 98 / 86; Pulse 120; Resp 18; Temp 98; Pulse Ox 99% ; Weight 58.06 kg; Height 5 ft. 5 ll1 in. ; Pain 8/10; 14:43 BP 144 / 92; Pulse 107; Resp 21; Pulse Ox 100% on R/A; hb 17:39 BP 153 / 97; Pulse 108; Resp 16; Pulse Ox 99% ; bp 12:32 Body Mass Index 21.30 (58.06 kg, 165.1 cm) ll1 12:32 Pain Scale: Adult ll1 MDM: 12:28 Medical Screening Exam initiated sp3 13:18 Data reviewed: vital signs, nurses notes, old medical records, lab test result(s), EKG, sp3 radiologic studies. ED course: 78-year-old female with PMH above now with abdominal pain, tachycardia and generalized weakness. Differential diagnosis broad includes dehydration, gastroenteritis, other intra-abdominal pathology. Electrolyte deficiency, among others. I am not highly suspicious of ACS, PE, TAD, sepsis, shock or any other critical process. Patient is afebrile. Workup will include CT scan of the abdomen pelvis with IV contrast, general labs, UA and general supportive care. IV fluids also will be given.. 17:09 ED course: Kidney stone likely with incidental finding. Pain is mainly anterior and now sp3 resolved. Patient's hydration status is improved and heart rate is now down into the 95-100 range. Will replenish remainder of IV fluids, potassium and discharge patient to PCP follow-up.. 06/01 13:14 Order name: Basic Metabolic Panel; Complete Time: 15: sp3 06/01 13:14 Order name: CBC with Diff; Complete Time: 15: 3 06/01 13:14 Order name: LFT's; Complete Time: 15: 3 06/01 13:14 Order name: Magnesium; Complete Time: 15: sp3 06/01 13:14 Order name: NT PRO-BNP; Complete Time: 15: sp3 06/01 13:14 Order name: PT-INR; Complete Time: 15: 3 06/01 13:14 Order name: Troponin HS; Complete Time: 15: sp3 06/01 13:14 Order name: Lipase; Complete Time: 15: sp3 06/01 13:14 Order name: UAM; Complete Time: 15:28 sp3 06/01 15:33 Order name: Urine Culture EDSC 06/01 15:54 Order name: Abdomen ; Complete Time: 16:40 EDSC 06/01 13:14 Order name: EKG; Complete Time: 13:15 sp3 06/01 13:14 Order name: Cardiac monitoring; Complete Time: 13:43 sp3 06/01 13:14 Order name: EKG - Nurse/Tech; Complete Time: 13:43 sp3 06/01 13:14 Order name: IV Saline Lock; Complete Time: 13:43 sp3 06/01 13:14 Order name: Labs collected and sent; Complete Time: 13:43 sp3 06/01 13:14 Order name: O2 Per Protocol; Complete Time: 13:43 sp3 06/01 13:14 Order name: O2 Sat Monitoring; Complete Time: 13:43 sp3 Administered Medications: 13:42 Drug: NS 0.9% IV 1000 ml IV at 1000 ml once; to be given as a bolus over 60 minutes hb Route: IV; Rate: 1000 ml; Site: left antecubital; 17:41 Follow up: IV Status: Completed infusion bp 16:14 Drug: NS 0.9% IV 1000 ml IV at 1 bolus Per protocol; to be given as a bolus over 60 bp minutes Route: IV; Rate: 1 bolus; Site: left antecubital; 17:41 Follow up: IV Status: Completed infusion bp 16:14 Drug: Potassium Chloride IV 20 mEq IV at calculated rate once; administer over 1-2 bp hours Route: IV; Rate: calculated rate; Site: left antecubital; 17:41 Follow up: IV Status: Completed infusion bp 16:14 Drug: Potassium PO Effervescent Tablet 50 mEq PO once; dissolve in 4 ounces of water or bp juice Route: PO; 17:41 Follow up: Response: No adverse reaction bp Disposition Summary: 06/01/24 17:10 Discharge Ordered Notes: Location: Home sp3 Condition: Stable sp3 Diagnosis - Dehydration, hypokalemia sp3 Followup: sp3 - With: Private Physician - When: Upon discharge from the Emergency Department - Reason: Continuance of care Discharge Instructions: - Discharge Summary Sheet sp3 - Dehydration, Adult sp3 - Hypokalemia sp3 Forms: - Medication Reconciliation Form sp3 - Antibiotic Education sp3 - Prescription Opioid Use sp3 - Patient Portal Instructions sp3 - Leadership Thank You Letter sp3 Prescriptions: - ondansetron 4 mg Oral Tablet,disintegrating - take 1 tablet ORAL route 2 times per day for 3 days as needed for nausea and sp3 vomiting; 20 tablet; Refills: 0, Product Selection Permitted Signatures: Dispatcher [employer] EDMS Samara Valles, RN RN Truong Melvin RN RN bp Keiko Hurley RN RN ll1 Je Trent MD MD sp3 Corrections: (The following items were deleted from the chart) 13:15 13:15 BASIC METABOLIC PANEL+C.LAB.BRZ ordered. EDMS EDMS 13:15 13:15 CBC+H.LAB.BRZ ordered. EDMS EDMS 13:15 13:15 HEPATIC FUNCTION+C.LAB.BRZ ordered. EDMS EDMS 13:15 13:15 MAGNESIUM+C.LAB.BRZ ordered. EDMS EDMS 13:15 13:15 PROBNP+C.LAB.BRZ ordered. EDMS EDMS 13:15 13:15 PROTIME (+INR)+COAG.LAB.BRZ ordered. EDMS EDMS 13:15 13:15 Troponin High Sensitivity+C.LAB.BRZ ordered. EDMS EDMS 13:15 13:15 LIPASE+C.LAB.BRZ ordered. EDMS EDMS 13:15 13:15 Urinalysis W/Microscopic+U.LAB.BRZ ordered. EDMS EDMS 15:54 13:15 Abdomen Pelvis W Con+CT.RAD.BRZ ordered. EDMS EDMS
[2024-06-01 18:30] VITALS: TEMP 98
[2024-06-01 18:37] VITALS: BP 153/97; O2SAT 99
--- NOTE | 2024-06-03 12:05 | EKG ---
Test Date: 2024-06-01 Test Time: 13:36:36 [employer]: HB MEASUREMENT RESULTS: Intervals: Rate: 111 MN: 146 QRSD: 100 QT: 372 QTc: 505 [place]: P: 42 MN: 146 QRS: 11 T: 44 INTERPRETIVE STATEMENTS: Sinus tachycardia Nonspecific ST abnormality Abnormal ECG Compared to ECG 01/28/2024 02:03:29 No significant changes Electronically Signed On 06-03-24 12:00:22 CDT by Ho Leone
== END 2024-06-01 18:11 | disposition home or self-care (01) ==
LOC: ER 12:12
DX: E86.0 Dehydration (principal); E87.6 Hypokalemia; R19.7 Diarrhea, unspecified; R11.2 Nausea with vomiting, unspecified
CPT/HCPCS: 96365; 96361; 93005; 87088; 85025; 81001; 87086; 80048; 36415; 83735; 85610; 80076; 84484; 83690; 83880; 74176; 99284; J7030; J3480

== ENCOUNTER 2024-07-06 15:34 | Emergency (ER) | payer OTHER ==
--- OUTSIDE RECORDS SUMMARY | 2024-07-06 15:47 | XMS REPORT | Continuity of Care Document ---
Author Name Unknown Address [address] [place] [address] [facility] Address [address] [place] [address] Care Team Providers Care Pulmonary Physician Name Role Phone Mariluz Chisholm DO Primary Care Physician + [phone] Angelito Acosta MD Attending Clinician ANGELITO ACOSTA Attending Clinician Unavail Tayla Monroy MD Attending Clinician [phone] TAYLA CADENA Attending Clinician Unavailable Nurse, [facility] Attending Clinician Unavailable Doctor Unassigned, [place] Attending Clinician U Hakeem Samuel MD Attending Clinician [phone] HAKEEM WALKER Attending Clinician Unavail able HAKEEM WALKER Attending Clinician Unavail able HAKEEM WALKER Admitting Clinician Unavail able Payers Payer Name Policy Type Policy Number Effective Date Expirati on Date Source [employer] MEDICARE ADVANTAGE Medicare [id number] 2023 00:00:00 Problems Condition Name Condition Details Condition Category Status Onset Date Resolution Date Last Treatment Date Treating Clinician Comments Source Cerebrovas cular accident (CVA) due to occlusion of right posterior cerebral artery Cerebrovas cular accident (CVA) due to occlusion of right posterior cerebral artery Disease Active 2023-03 00:00: 00 Jori Perez MCI (mild cognitive impairment ) with memory loss MCI (mild cognitive impairment ) with memory loss Disease Active 2024-1 2-13 00:00: 00 Jori Perez Acute cystitis without hematuria Acute cystitis without hematuria Disease Active 09-20 00:00: 00 Jori Perez CKD (chronic kidney disease) CKD (chronic kidney disease) Disease Active 09-20 00:00: 00 Jori Perez Immunocomp romised state due to drug therapy Immunocomp romised state due to drug therapy Disease Active 09-20 00:00: 00 Jori Perez Mixed hyperlipid emia Mixed hyperlipid emia Disease Active 09-20 00:00: 00 Jori Perez Primary hypertensi on Primary hypertensi on Disease Active 03-22 00:00: 00 Jori Perez Pain Pain Disease Active 04-09 00:00: 00 Jori Perez Vitamin D insufficie ncy Vitamin D insufficie ncy Disease Active 2013-03 00:00: 00 Jori Perez Long-term use of immunosupp ressant medication Long-term use of immunosupp ressant medication Disease Active 09-25 00:00: 00 Jori Perez Osteoarthr itis, multiple sites Osteoarthr itis, multiple sites Disease Active 06-10 00:00: 00 Jori Perez Neuropathy of foot Neuropathy of foot Disease Active 2012-03 00:00: 00 Jori Perez Osteopenia Osteopenia Disease Active 2012-03 00:00: 00 Jori Perez Rheumatoid arthritis Rheumatoid arthritis Disease Active 2012-03 00:00: 00 Jori Perez Allergies, Adverse Reactions, Alerts Allergy Name Allergy Type Status Severity Reaction(s) Onset Date Inactive Date Treating Clinician Comments Source NO KNOWN ALLERGIE S Drug Class Active [facility] Social History Social Habit Start Date Stop Date Quantity Comments Source Gender identity 2023-06-04 05:02:59 Identifies as female gender (finding) Tamanna Perez Exposure to SARS-CoV-2 (event) Not sure [facility] History SDOH Alcohol Std Drinks [facility] History SDOH Alcohol Binge [facility] ASSERTION Possible [facility] Sexual orientation [facility] Tobacco use and exposure 2024-02-23 00:00:00 2024-02-23 00:00:00 Smokeless tobacco non-user [facility] Alcoholic beverage intake 2024-02-23 00:00:00 2024-02-23 00:00:00 Lifetime non-drinker (finding) [facility] History of Social function 2024-02-23 00:00:00 2024-02-23 00:00:00 [facility] Alcohol intake 2019-05-14 00:00:00 2019-05-14 00:00:00 Ex-drinker (finding) [facility] History SDOH Alcohol Frequency 2019-05-14 00:00:00 2019-05-14 00:00:00 1 [facility] Sex Assigned At 1945 00:00:00 1945 00:00:00 [facility] Smoking Status Start Date Stop Date Source Never smoked tobacco Jori Euceda [facility] Medications Ordered Medication Name Filled Medication Name Start Date Stop Date Current Medication? Ordering Clinician Indication Dosage Frequency Signature (SIG) Comments Components Source certolizuma b pegol (Cimzia) injection certolizuma b pegol (Cimzia) injection 2023-03 14:41: 06 Yes Jori Euceda [facility] ascorbic acid (vitamin C) 500 MG tablet ascorbic acid (vitamin C) 500 MG tablet 2023-03 14:41: 06 Yes 500mg QD Take 500 mg by mouth 1 time each day. Jori Euceda [facility] cholecalcif alejandro 50 MCG (2000 UT) tablet cholecalcif alejandro 50 MCG (2000 UT) tablet 2023-03 14:41: 06 Yes Take by mouth. Jori Euceda [facility] multivitami n (DEKAs Plus) multivitami n (DEKAs Plus) 2023-03 14:41: 06 Yes 1{tbl} QD Chew 1 tablet 1 time each day. Jori Euceda [facility] metoprolol succinate XL (Toprol-XL) 100 MG 24 hr tablet metoprolol succinate XL (Toprol-XL) 100 MG 24 hr tablet 2023-03 14:39: 31 Yes 100mg QD Take 100 mg by mouth 1 time each day. Jori Perez DULoxetine (Cymbalta) [address] capsule DULoxetine (Cymbalta) [address] capsule 2023-03 14:39: 31 Yes 60mg Q.5D Take 60 mg by mouth in the morning and 60 mg in the evening. Jori Perez tiZANidine (Zanaflex) 4 MG tablet tiZANidine (Zanaflex) 4 MG tablet 2023-03 14:39: 31 Yes 1{tbl} Take 1 tablet by mouth at bedtime. Jori Perez amLODIPine (Norvasc) 5 MG tablet amLODIPine (Norvasc) 5 MG tablet 2023-03 14:39: 31 Yes 5mg QD Take 5 mg by mouth 1 time each day. Jori Perez BABY ASPIRIN PO BABY ASPIRIN PO 2023-03 14:39: 31 Yes Take by mouth. Jori Perez gabapentin (Neurontin) 600 MG tablet gabapentin (Neurontin) 600 MG tablet 09-08 00:00: 00 Yes 1{tbl} QD Take 1 tablet by mouth 1 time each day. Jori Perez HYDROcodone -acetaminop hen ([place]) 10-325 MG tablet HYDROcodone -acetaminop hen ([place]) 10-325 MG tablet 08-30 00:00: 00 Yes 1{tbl} Q4H Take 1 tablet by mouth every 4 hours if needed. Jori Perez fenofibrate (Tricor) 54 MG tablet fenofibrate (Tricor) 54 MG tablet 08-22 00:00: 00 Yes 54mg QD Take 54 mg by mouth 1 time each day. Jori Perez solifenacin (VESIcare) 5 MG tablet solifenacin (VESIcare) 5 MG tablet 08-22 00:00: 00 Yes 5mg QD Take 5 mg by mouth 1 time each day. Jori Perez Jardiance 10 MG Jardiance 10 MG 08-22 00:00: 00 Yes 10mg QD Take 10 mg by mouth 1 time each day. Jori Perez predniSONE (Deltasone) 5 MG tablet predniSONE (Deltasone) 5 MG tablet 08-12 00:00: 00 Yes 5mg QD Take 5 mg by mouth 1 time each day. Jori Perez hydrOXYzine HCl (Atarax) 25 MG tablet hydrOXYzine HCl (Atarax) 25 MG tablet 08-08 00:00: 00 Yes 25mg Take 25 mg by mouth every 12 hours if needed. Jori Perez Nitrofurant oin&Nit. Macrocryst (MACROBID) 100 mg capsule -19 00:00: 00 05-07 05:59 :00 No [id number] 100mg Take 1 capsule by mouth in the morning and 1 capsule in the evening. Do all this for 5 days. [facility] sulfamethox azole-trime thoprim 800-160 mg per tablet 16 00:00: 00 04-05 05:59 :00 No [id number] 1{tbl} Take 1 tablet by mouth in the morning and 1 tablet in the evening. Do all this for 7 days. [facility] ZINC ACETATE ORAL 03-22 09:43: 29 Yes Take by mouth. [facility] vitamin C with juliana hips (VITAMIN C) 1,000 mg tablet 03-22 09:43: 29 Yes 1000mg Take 1 tablet by mouth in the morning. [facility] HYDROCODONE /ACETAMINOP HEN (NORCO ORAL) 03-22 09:42: 31 Yes 10mg Take 10-325 mg by mouth every 6 (six) hours as needed for Pain (scale 4-6) or Pain (scale 7-10). [facility] metoprolol succinate XL 100 mg 24 hr tablet 03-22 09:42: 31 Yes 100mg Take 1 tablet by mouth in the morning. [facility] PREDNISONE ORAL 03-22 09:42: 31 Yes 5mg Take 5 mg by mouth in the morning. [facility] GABAPENTIN ORAL 03-22 09:42: 31 Yes 600mg Take 600 mg by mouth in the morning and 600 mg at noon and 600 mg in the evening. [facility] MULTIVIT,CA ,MIN-D3-HER BAL #[id number] ORAL 03-22 09:42: 31 Yes 1{tbl} Take 1 tablet by mouth daily. [facility] foLIC acid 1 mg tablet 03-22 09:41: 34 03-22 00:00 :00 No 1mg Take 1 mg by mouth daily. [facility] duloxetine HCl (CYMBALTA ORAL) 03-22 09:41: 32 Yes 120mg Take 120 mg by mouth daily. [facility] aspirin 81 mg chewable tablet 03-22 09:41: 08 Yes 81mg Take 1 tablet by mouth in the morning. [facility] amLODIPine 5 mg tablet 03-22 09:41: 08 Yes 5mg Take 1 tablet by mouth in the morning. [facility] alendronate 35 mg tablet 03-22 09:41: 07 Yes 35mg Take 1 tablet by mouth weekly. Takes on Tuesdays [facility] estradioL (ESTRACE) 0.01 % (0.1 mg/gram) vaginal cream 03-22 00:00: 00 Yes [id number] Apply 1g vaginally at bedtime every night for 2 weeks and then apply 1g vaginally at bedtime 2 OR 3 times per week [facility] gadobenate dimeglumine (MULTIHANCE -20 mL) injection 0.2 mL/kg 07-31 19:30: 00 07-31 19:30 :00 No .2mL/kg 0.2 mL/kg, Intravenou s, ONCE, 1 dose, [facility] 08/01/19 at 1430, Routine [facility] foLIC acid 1 mg tablet 04-10 15:42: 32 Yes 1mg Take 1 mg by mouth daily. [facility] GABAPENTIN ORAL 04-10 15:42: 32 Yes 900mg Take 900 mg by mouth 3 (three) times daily. [facility] MULTIVIT,CA ,MIN-D3-HER BAL #[id number] ORAL 04-10 15:42: 32 Yes 1{tbl} Take 1 tablet by mouth daily. [facility] alendronate 35 mg tablet 04-10 15:42: 32 Yes 35mg Take 35 mg by mouth weekly. Takes on Tuesdays [facility] PREDNISONE ORAL 04-10 15:42: 32 Yes 4mg Take 4 mg by mouth daily. [facility] HYDROCODONE /ACETAMINOP HEN (NORCO ORAL) 04-10 15:42: 32 Yes 10mg Take 10-325 mg by mouth every 6 (six) hours as needed for Pain (scale 4-6) or Pain (scale 7-10). [facility] aspirin 81 mg chewable tablet 04-10 15:42: 32 Yes 81mg Take 81 mg by mouth daily. [facility] amLODIPine 5 mg tablet 04-10 15:42: 32 Yes 5mg Take 5 mg by mouth daily. [facility] metoprolol succinate XL 100 mg 24 hr tablet 04-10 15:42: 32 Yes 100mg Take 100 mg by mouth daily. [facility] duloxetine HCl (CYMBALTA ORAL) 04-10 15:42: 32 Yes 120mg Take 120 mg by mouth daily. [facility] HYDROCODONE /ACETAMINOP HEN (NORCO ORAL) 04-10 09:42: 32 Yes 10mg Take 10-325 mg by mouth every 6 (six) hours as needed for Pain (scale 4-6) or Pain (scale 7-10). [facility] aspirin 81 mg chewable tablet 04-10 09:42: 32 Yes 81mg Take 81 mg by mouth daily. [facility] amLODIPine 5 mg tablet 04-10 09:42: 32 Yes 5mg Take 5 mg by mouth daily. [facility] metoprolol succinate XL 100 mg 24 hr tablet 04-10 09:42: 32 Yes 100mg Take 100 mg by mouth daily. [facility] foLIC acid 1 mg tablet 04-10 09:42: 32 Yes 1mg Take 1 mg by mouth daily. [facility] PREDNISONE ORAL 04-10 09:42: 32 Yes 4mg Take 4 mg by mouth daily. [facility] duloxetine HCl (CYMBALTA ORAL) 04-10 09:42: 32 Yes 120mg Take 120 mg by mouth daily. [facility] GABAPENTIN ORAL 04-10 09:42: 32 Yes 900mg Take 900 mg by mouth 3 (three) times daily. [facility] MULTIVIT,CA ,MIN-D3-HER BAL #161 ORAL 04-10 09:42: 32 Yes 1{tbl} Take 1 tablet by mouth daily. [facility] alendronate 35 mg tablet 04-10 09:42: 32 Yes 35mg Take 35 mg by mouth weekly. Takes on Tuesdays [facility] cyclobenzap rine 5 mg tablet 2016-03 00:00: 00 03-22 00:00 :00 No 5mg Take 1 tablet by mouth 3 (three) times daily. [facility] Immunizations Ordered Immunization Name Filled Immunization Name Date Status Comments Source Influenza High Dose 2023-05-17 00:00:00 Completed [facility] Influenza High Dose 2023-04-27 00:00:00 Completed [facility] Influenza High Dose 2023-04-18 14:00:00 Completed [facility] Influenza High Dose 2023-04-17 00:00:00 Completed [facility] Influenza High Dose 2023-04-12 00:00:00 Completed [facility] Influenza High Dose 2023-04-11 00:00:00 Completed [facility] Influenza High Dose 2023-04-10 00:00:00 Completed [facility] Influenza High Dose 2023-04-06 00:00:00 Completed [facility] Influenza High Dose 2023-04-03 00:00:00 Completed [facility] Influenza High Dose 2023-03-22 10:00:00 Completed [facility] Influenza High Dose 2023-03-16 00:00:00 Completed [facility] Influenza High Dose 2018-04-10 00:00:00 Completed [facility] Influenza High Dose 2018-04-10 00:00:00 Completed [facility] Influenza High Dose 2018-04-10 00:00:00 Completed [facility] Influenza High Dose 2018-04-10 00:00:00 Completed [facility] Influenza High Dose 2018-04-10 00:00:00 Completed [facility] Influenza High Dose 2018-04-10 00:00:00 Completed [facility] Influenza High Dose 2018-04-10 00:00:00 Completed [facility] Influenza High Dose 2018-04-10 00:00:00 Completed [facility] Vital Signs Vital Name Observation Time Observation Value Comments Roxanna rangel Systolic blood pressure 2024-02-23 14:43:00 123 mm[Hg] [facility] Epic Diastolic blood pressure 2024-02-23 14:43:00 101 mm[Hg] [facility] Epic Heart rate 2024-02-23 14:43:00 71 /min [facility] [place] [facility] Body temperature 2024-02-23 14:43:00 36.61 [facility] Res[facility] 2024-02-23 14:43:00 16 /min [facility] Body height 2024-02-23 14:43:00 152.4 cm [place] [facility] [place] Epic Body weight 2024-02-23 14:43:00 58.514 kg [facility] [place] Epic BMI 2024-02-23 14:43:00 25.19 kg/m2 [place] [facility] [place] [facility] Systolic blood pressure 2024-02-23 14:43:00 123 mm[Hg] Tamanna [facility] Epic Diastolic blood pressure 2024-02-23 14:43:00 101 mm[Hg] [facility] Epic Heart rate 2024-02-23 14:43:00 71 /min [facility] [place] [facility] Body temperature 2024-02-23 14:43:00 36.61 Jacquelin [facility] [place] Epic Respiratory rate 2024-02-23 14:43:00 16 /min [facility] [place] [facility] Body height 2024-02-23 14:43:00 152.4 cm [facility] [place] Epic Body weight 2024-02-23 14:43:00 58.514 kg [place] [place] [facility] BMI 2024-02-23 14:43:00 25.19 kg/m2 [facility] [facility] [place] [facility] Systolic blood pressure 2023-03-22 15:38:00 130 mm[Hg] [facility] Diastolic blood pressure 2023-03-22 15:38:00 75 mm[Hg] [facility] Heart rate 2023-03-22 15:38:00 90 /min Unive [facility] Body temperature 2023-03-22 15:38:00 36.83 Jacquelin [facility] Respiratory rate 2023-03-22 15:38:00 18 /min [facility] Body height 2023-03-22 15:38:00 165.1 cm [facility] Body weight 2023-03-22 15:38:00 66.225 kg [facility] BMI 2023-03-22 15:38:00 24.30 kg/m2 [facility] Oxygen saturation in Arterial blood by Pulse oximetry 2023-03-22 15:38:00 97 /min [facility] Systolic blood pressure 2019-09-13 16:28:00 140 mm[Hg] [facility] Diastolic blood pressure 2019-09-13 16:28:00 80 mm[Hg] [facility] Heart rate 2019-09-13 16:28:00 73 /min Unive [facility] Body temperature 2019-09-13 16:28:00 36.61 Jacquelin [facility] Respiratory rate 2019-09-13 16:28:00 18 /min [facility] Body weight 2019-09-13 16:28:00 65.137 kg [facility] BMI 2019-09-13 16:28:00 23.90 kg/m2 [facility] Systolic blood pressure 2019-09-13 16:28:00 140 mm[Hg] [facility] Diastolic blood pressure 2019-09-13 16:28:00 80 mm[Hg] [facility] Heart rate 2019-09-13 16:28:00 73 /min [facility] Body temperature 2019-09-13 16:28:00 36.61 Jacquelin [facility] Respiratory rate 2019-09-13 16:28:00 18 /min [facility] Body weight 2019-09-13 16:28:00 65.137 kg [facility] BMI 2019-09-13 16:28:00 23.90 kg/m2 [facility] Systolic blood pressure 2019-05-14 21:03:00 139 mm[Hg] [facility] Diastolic blood pressure 2019-05-14 21:03:00 86 mm[Hg] [place] [facility] Heart rate 2019-05-14 21:03:00 80 /min [facility] Body temperature 2019-05-14 21:03:00 36.5 Jacquelin [facility] Respiratory rate 2019-05-14 21:03:00 16 /min [facility] Body height 2019-05-14 21:03:00 165.1 cm [facility] Body weight 2019-05-14 21:03:00 65.772 kg [facility] BMI 2019-05-14 21:03:00 24.13 kg/m2 [facility] Procedures Procedure Date / Time Performed Performing Clinician Source Beta-Amyloid 42/40 Ratio, Plasma 2024-02-23 00:00:00 [facility] MRI brain wo IV contrast 2024-02-23 00:00:00 [facility] Copper Level 2024-02-23 00:00:00 [facility] Vitamin B1 Level 2024-02-23 00:00:00 [facility]anco [facility] Vitamin B12 Level 2024-02-23 00:00:00 [facility] Zinc Level 2024-02-23 00:00:00 [facility] Sedimentation Rate 2024-02-23 00:00:00 [facility] C-Reactive Protein 2024-02-23 00:00:00 [facility] URINE CULTURE 2023-04-18 20:09:00 Tayla Cadena [facility] URINE CULTURE 2023-03-22 16:47:00 Tayla Cadena [facility] POCT URINALYSIS AUTO 2023-03-22 15:54:00 Odette Cadena [facility] CONNOR,POST-VOID RES,US,NON-IMAGING 2023-03-22 00:00:00 Tayla Cadena [facility] REFERRAL- REQUEST/RESPONSE 2023-03-16 06:01:00 Doctor Unassigned, [place] [facility] EXTERNAL PROVIDER RECORDS 2022-09-14 05:01:00 Do ctor Unassigned, [place] [facility] MR LUMBAR SPINE W WO CONTRAST 2019-08-01 19:22:35 AaronHakeem [facility] INSURANCE CORRESPONDENCE 2019-06-07 05:01:00 Doc tor Unassigned, [place] [facility] ASSIGNMENT OF BENEFITS 2019-05-14 20:40:19 Docto r Unassigned, [place] [facility] EXTERNAL PROVIDER RECORDS 2019-05-01 06:01:00 Do ctor Unassigned, [place] [facility] REFERRAL- REQUEST/RESPONSE 2019-05-01 06:01:00 Doctor Unassigned, [place] [facility] Encounters Start Date/Time End Date/Time Encounter Type Admission Type Attending [facility] Facility Care Department Encounter ID Source 2024-03-21 00:00:00 2024-03-21 08:30:25 Telephone Angelito Acosta [facility] [id number] 350.1.13.70 8.2.7.2.[id number] [facility] 2024-03-19 00:00:00 2024-03-19 10:44:49 Telephone Rosio Angelito [facility] [id number] 350.1.13.70 8.2.7.2.686 [id number] [facility] bryanna [facility] 2024-03-07 00:00:00 2024-03-07 10:57:17 Telephone Angelito Acosta [facility] [id number] 350.1.13.70 8.2.7.2.686 [id number] [facility] bryanna [facility] 2024-02-23 14:25:41 2024-02-23 15:28:28 Outpatient Elective ANGELITO ACOSTA [facility] [id number] EOUT 2024-02-23 14:15:00 2024-02-23 15:28:28 Consult Angelito Acosta [id number] 350.1.13.70 8.2.7.2.686 [id number] Jori Euceda [facility] 2023-05-17 00:00:00 2023-05-17 00:00:00 [facility] [id number] 350.1.13.10 4.2.7.2.686 [id number] [facility] 2023-04-27 00:00:00 2023-04-27 00:00:00 Telephone [facility] BUILDING [id number] 350.1.13.10 4.2.7.2.686 [id number] [facility] 2023-04-18 14:00:00 2023-04-18 16:55:22 Outpatient R SURINDER TAYLA [facility] [id number] [facility] 2023-04-18 14:00:00 2023-04-18 16:55:22 Nurse Visit Nurse, [facility] 1.2840.114 350.1.13.10 4.2.7.2.686 [id number] [facility] 2023-04-17 00:00:00 2023-04-17 00:00:00 Telephone [facility] BUILDING 1.2840.114 350.1.13.10 4.2.7.2.686 [id number] [facility] 2023-04-12 00:00:00 2023-04-12 00:00:00 [facility]phone [facility] 1.2840.114 350.1.13.10 4.2.7.2.686 [id number] [facility] 2023-04-11 00:00:00 2023-04-11 00:00:00 [facility] 1.2.840.114 350.1.13.10 4.2.7.2.686 [id number] [facility] 2023-04-10 00:00:00 2023-04-10 00:00:00 [facility] 1.2.840.114 350.1.13.10 4.2.7.2.686 [id number] [facility] 2023-04-06 00:00:00 2023-04-06 00:00:00 [facility] [id number] 350.1.13.10 4.2.7.2.686 [id number] [facility] 2023-04-03 00:00:00 2023-04-03 00:00:00 [facility] 1.2840.114 350.1.13.10 4.2.7.2.686 [id number] [facility] 2023-03-22 10:00:00 2023-03-22 10:48:43 [id number] 2023-03-22 10:00:00 2023-03-22 10:48:43 Office Visit Tayla Cadena [facility] 1.20.114 350.1.13.10 4.2.7.2.686 [id number] [facility] 2023-03-16 00:00:00 2023-03-16 00:00:00 Orders Only Doctor Unassigned, [place] [facility] [id number] 350.1.13.10 4.2.7.2.686 [id number] [facility] 2022-09-14 00:00:00 2022-09-14 00:00:00 Orders Only Doctor Unassigned, [place] [facility] 1.2840.114 350.1.13.10 4.2.7.2.686 [id number] [facility] 2019-09-13 11:09:01 2019-09-13 13:29:16 Office Visit Hakeem Walker [facility] 1.284.114 350.1.13.10 4.2.7.2.686 [id number] [facility] 2019-09-13 11:09:01 2019-09-13 13:29:16 Office Visit Hakeem Walker [facility] 1.2.114 350.1.13.10 4.2.7.2.686 [id number] 2019-09-13 11:20:00 2019-09-13 11:20:00 Outpatient HAKEEM JAVIER [facility] [id number] [facility] 2019-09-10 00:00:00 2019-09-10 00:00:00 Telephone Hakeem Walker [facility] 1.284.114 350.1.13.10 4.2.7.2.686 [id number] [facility] 2019-08-01 12:25:14 2019-08-01 23:59:00 Outpatient HAKEEM JAVIER [facility] [id number] [facility] 2019-08-01 12:25:00 2019-08-01 23:59:00 Hospital Encounter Hakeem Walker [facility] 1.284.114 [id number] [id number] [id number] [facility] 2019-06-07 00:00:00 2019-06-07 00:00:00 Orders Only Doctor Unassigned, [place] [facility] [id number] [id number] [facility] 2019-05-14 14:40:44 2019-05-14 15:42:51 Office Visit Hakeem Walker [facility] 1.20.114 [id number] [facility] 2019-05-14 15:00:00 2019-05-14 15:00:00 Outpatient R HAKEEM WALKER [facility] [id number] [facility] 2019-05-14 00:00:00 2019-05-14 00:00:00 Orders Only Doctor Unassigned, [place] [facility] 1.20.114 [id number] [facility] 2019-05-01 00:00:00 2019-05-01 00:00:00 Orders Only Doctor Unassigned, [place] [facility] [id number] [id number] [id number] [id number] [facility] Results Test Description Test Time Test Comments Results Result Co [facility], [id number] 15:55:00 * Test Item Value Reference Range Interpretation Comme nts POCT U SP GRAV (test code = 3255) 1.025 mg/dl 1.005-1.025 POCT PH U (test code = 3254) 5.5 mg/dl 5-8 POCT U LEUK EST (test code = 3263) large Negative - Negative POCT U NIT (test code = 3262) positive Negative - Negative POCT U PROT (test code = 3259) 30 Negative - Negative POCT U GLU (test code = 3256) negative Negative - Negative POCT U KETONE (test code = 3258) negative Negative - Negative POCT U UROBILI (test code = 3260) 0.2 mg/dl 0.2-1 POCT U BILI (test code = 3261) negative Negative - Negative POCT U BLD (test code = 3257) small Negative - Negative POCT U COLOR (test code = 3266) yellow POCT U APPEAR (test code = 3267) clear SAM (test code = SAM) Per order PVR by bladder scan = ?0 ml. [facility] [id number] 15:55:00 * Test Item Value Reference Range Interpretation Comme nts POCT U SP GRAV (test code = 3255) 1.025 mg/dl 1.005-1.025 POCT PH U (test code = 3254) 5.5 mg/dl 5-8 POCT U LEUK EST (test code = 3263) large Negative - Negative POCT U NIT (test code = 3262) positive Negative - Negative POCT U PROT (test code = 3259) 30 Negative - Negative POCT U GLU (test code = 3256) negative Negative - Negative POCT U KETONE (test code = 3258) negative Negative - Negative POCT U UROBILI (test code = 3260) 0.2 mg/dl 0.2-1 POCT U BILI (test code = 3261) negative Negative - Negative POCT U BLD (test code = 3257) small Negative - Negative POCT U COLOR (test code = 3266) yellow POCT U APPEAR (test code = 3267) clear SAM (test code = SAM) Per order PVR by bladder scan = ?0 ml. Results reported to provider. [facility] [id number] 15:55:00 * Test Item Value Reference Range Interpretation Comme nts POCT U SP GRAV (test code = 3255) 1.025 mg/dl 1.005-1.025 POCT PH U (test code = 3254) 5.5 mg/dl 5-8 POCT U LEUK EST (test code = 3263) large Negative - Negative POCT U NIT (test code = 3262) positive Negative - Negative POCT U PROT (test code = 3259) 30 Negative - Negative POCT U GLU (test code = 3256) negative Negative - Negative POCT U KETONE (test code = 3258) negative Negative - Negative POCT U UROBILI (test code = 3260) 0.2 mg/dl 0.2-1 POCT U BILI (test code = 3261) negative Negative - Negative POCT U BLD (test code = 3257) small Negative - Negative POCT U COLOR (test code = 3266) yellow POCT U APPEAR (test code = 3267) clear SAM (test code = SAM) Per order PVR by bladder scan = ?0 ml. Results reported to provider. [facility] Urinalysis, [id number] 15:55:00 * Test Item Value Reference Range Interpretation Comme nts POCT U SP GRAV (test code = 3255) 1.025 mg/dl 1.005-1.025 POCT PH U (test code = 3254) 5.5 mg/dl 5-8 POCT U LEUK EST (test code = 3263) large Negative - Negative POCT U NIT (test code = 3262) positive Negative - Negative POCT U PROT (test code = 3259) 30 Negative - Negative POCT U GLU (test code = 3256) negative Negative - Negative POCT U KETONE (test code = 3258) negative Negative - Negative POCT U UROBILI (test code = 3260) 0.2 mg/dl 0.2-1 POCT U BILI (test code = 3261) negative Negative - Negative POCT U BLD (test code = 3257) small Negative - Negative POCT U COLOR (test code = 3266) yellow POCT U APPEAR (test code = 3267) clear SAM (test code = SAM) Per order PVR by bladder scan = ?0 ml. Results reported to provider. [facility], [id number] 15:55:00 * Test Item Value Reference Range Interpretation Comme nts POCT U SP GRAV (test code = 3255) 1.025 mg/dl 1.005-1.025 POCT PH U (test code = 3254) 5.5 mg/dl 5-8 POCT U LEUK EST (test code = 3263) large Negative - Negative POCT U NIT (test code = 3262) positive Negative - Negative POCT U PROT (test code = 3259) 30 Negative - Negative POCT U GLU (test code = 3256) negative Negative - Negative POCT U KETONE (test code = 3258) negative Negative - Negative POCT U UROBILI (test code = 3260) 0.2 mg/dl 0.2-1 POCT U BILI (test code = 3261) negative Negative - Negative POCT U BLD (test code = 3257) small Negative - Negative POCT U COLOR (test code = 3266) yellow POCT U APPEAR (test code = 3267) clear SAM (test code = SAM) Per order PVR by bladder scan = ?0 ml. Results reported to provider. [facility],POST-VOID RES,US,[id number] 00:00:00* Test Item Value Reference Range Interpretation Comme nts PVR (URINE VOLUME) (test code = 5193) 0 ml 0-100 [facility],POST-VOID RES,US,[id number] 00:00:00* Test Item Value Reference Range Interpretation Comme nts PVR (URINE VOLUME) (test code = 5193) 0 ml 0-100 [facility],POST-VOID RES,US,[id number] 00:00:00* Test Item Value Reference Range Interpretation Comme nts PVR (URINE VOLUME) (test code = 5193) 0 ml 0-100 [facility],POST-VOID RES,US,[id number] 00:00:00* Test Item Value Reference Range Interpretation Comme nts PVR (URINE VOLUME) (test code = 5193) 0 ml 0-100 [facility],POST-VOID RES,US,[id number] 00:00:00* Test Item Value Reference Range Interpretation Comme nts PVR (URINE VOLUME) (test code = 5193) 0 ml 0-100 [facility],POST-VOID RES,US,[id number] 00:00:00* Test Item Value Reference Range Interpretation Comme nts PVR (URINE VOLUME) (test code = 5193) 0 ml 0-100 [facility] LUMBAR SPINE W WO [id number] 19:39:34HISTORY: Chronic back pain. History of prior lumbar surgery.. TECHNIQUE: Sagittal T2 FRFSE, T1, STIR and axial T2 FRFSE T1 studies oflumbar spines are obtained. Additional coronal T2 FRFSE study is alsoobtained. Contrast enhanced fat sat sagittal and axial T1 studies were repeated afterintravenous injection of 13 mL of MultiHance. FINDINGS: [facility] No aggressive lesions of the bones detected. Spinal canalappears to be of adequate size and normal conus/cauda equina are found atthe level of T12. Visualized retroperitoneum is unremarkable for aorticaneurysm or enlarged lymph nodes or hydronephrosis. 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 T12-L1: Old fracture of L1 which has lost more than 70% ofits height.Prominent Schmorl's node in the lower plate [...] encroachment is not significant. L3-L4: Hardware into [id number] to be in good position. No hardware- relatedcomplications appreciated. Disc degeneration noted with prominent bulging of the disc causing minimalthecal sac compression. Foraminal encroachment noted on both sides withoutsignificant nerve root compression. L4-L5: Old trauma to lower plate of L4with development of prominentSchmorl's node. Disc degeneration with [...] prominent disc osteophyte complex along the ventral ve rtebral margins.Small disc osteophyte complex noted encroaching into the spinal canalwithout significant thecal sac compression. Foraminal encroachment noted onboth sides without significant nerve root compression. CONCLUSIONS:1. Mild mid lumbar kyphoscoliosis with multilevel degenerative disc diseaseand facet arthritis. Postoperative changes of laminectomy and removal ofthe spinous processes at L3-L4-L5. Hardware into L3 and L5-S1 in goodposition. No hardware- related complications visualized.2. Old fracture of L1 which has lost more than 70% of its height. Oldfracture with prominent Schmorl's node in the lower plate of L4 and oldfracture of the right upper plate of L2.3. Prominent disc oste ophyte complex and thickened ligaments from facetarthritis causing spinal stenosis at T12-L1, L1-L2with thecal saccompression. Focal disc herniation suspected in left side of the spinalcanal at L1-L2 causing more compression of the left side of the thecal sacand mild pressure on the underlying conus medullaris. X line4. Contrast enhanced evaluation showed no abnormal enhancement in thevisualizedportions of the spinal cord, in the bones or paravertebral softtissues. Minimal enhancement noted of intrathecal portion of the right X4ozinb root. [facility], Radiant Results Inft User - [...] has been made with lumbar spine radiographs o 2014. No aggressive lesions of the bones detected. Spinal canalappears to be of adequate size and normal conus/cauda equina are found atthe level of T12. Visualized retroperitoneum is unremarkable for aorticaneurysm or enlarged lymph nodes or hydronephrosis. Double collectingsystem of theleft kidney noted without hydronephrosis.T12-L1: Old fracture of L1 which has lost more than 70% ofits height.Prominent Schmorl's node in the lower plate of T12 could also be secondaryto remote trauma. Disc degeneration with prominent bulging disc andmarkedly thickened ligament secondary to hypertrophic facet arthritis isnoted causing spinal stenosis with flattening of the spinal cord in APdimens ion.Foraminal narrowing noted on both sides with probable bilateral nerve rootcompression.L1-L2: Disc degeneration with narrowing of the posterior portion of thedisc space by more than 70%, grade 1 spondylolisthesis of L1 over L2,prominent disc osteophyte complex encroaching throughout the spinal ca nal.There is possibly a focal left posterior disc [...] appear to be in good position. No hardware-relatedcomplications appreciated.Disc degeneration noted with prominent bulging of [...] the left neural foramen without significant nerve r ootcompression.L5-S1: Hardware into L5 and S1 appear to [...] into L3 and L5-S1 in goodposition. No hardware- related complications visualized.2. Old fracture of L1 which [...] sacand mild pressure on the underlying conus medull roger. X line4. Contrast enhanced evaluation showed no abnormal enhancement in thevisualized portions of the spinal cord, in the bones or paravertebral softtissues. Minimal enhancement noted of intrathecal portion of the right [id number] root.[facility] Notes Upcoming Encounters Date/Time Note Provider Source Health Maintenance Due Date Last Done Comments Bone Density Scan 1945 Lipid Panel 1945 Medicare Annual Wellness (AWV) 1945 Annual Physical 06/07/1948 DTaP/Tdap/Td Vaccines (1 - Tdap) 06/07/1963 Zoster Vaccines (1 of 2) 06/07/1963 Pneumococcal Vaccine: 65+ Ye ars (2 of 2 - PCV) 12/12/2011 12/11/2010 Respiratory Syncytial Virus (RSV) or >=60 (1 - 1-dose 75+ series) 06/07/2019 Influenza Vaccine (#1) 2023 04/10/2018 HIB Vaccines Aged Out No longer eligi ble based on patient's age to complete this topic HPV Vaccines Aged Out No longer eligi ble based on patient's age to complete this topic Hepatitis A Vaccines Aged Out No long er eligible based on patient's age to complete this topic Hepatitis B Vaccines Aged Out No long er eligible based on patient's age to complete this topic IPV Vaccines Aged Out No longer eligi ble based on patient's age to complete this topic Meningococcal Vaccine Aged Out No domitila betty eligible based on patient's age to complete this topic Rotavirus Vaccines Aged Out No longer eligible based on patient's age to complete this topic [id number] 08:30:33 [facility] [id number] 08:30:13 LEFT VM.. [place] [id number] 10:44:58Upcoming Encounters Health Maintenance Due Date Last Done Comments Bone Density Scan 1945 Lipid Panel 1945 Medicare Annual Wellness (AWV) 1945 Annual Physical 06/07/1948 DTaP/Tdap/Td Vaccines (1 - Tdap) 06/07/1963 Zoster Vaccines (1 of 2) 06/07/1963 Pneumococcal Vaccine: 65+ Ye ars (2 of 2 - PCV) 12/12/2011 12/11/2010 Respiratory Syncytial Virus (RSV) or >=60 (1 - 1-dose 75+ series) 06/07/2019 Influenza Vaccine (#1) 2023 04/10/2018 HIB Vaccines Aged Out No longer eligi ble based on patient's age to complete this topic HPV Vaccines Aged Out No longer eligi ble based on patient's age to complete this topic Hepatitis A Vaccines Aged Out No long er eligible based on patient's age to complete this topic Hepatitis B Vaccines Aged Out No long er eligible based on patient's age to complete this topic IPV Vaccines Aged Out No longer eligi ble based on patient's age to complete this topic Meningococcal Vaccine Aged Out No domitila betty eligible based on patient's age to complete this topic Rotavirus Vaccines Aged Out No longer eligible based on patient's age to complete this topic [facility] CenterBxxwnks2506-12-84 10:44:58 [facility] [id number] 10:44:34 LEFT VM.. ET LITHOGRAPHIC PRESS SETTER [place] [id number] 10:57:27Upcoming Encounters Health Maintenance Due Date Last Done Comments Bone Density Scan 1945 Lipid Panel 1945 Medicare Annual Wellness (AWV) 1945 Annual Physical 06[birth year]07/1948 DTaP/Tdap/Td Vaccines (1 - Tdap) 06/07/1963 Zoster Vaccines (1 of 2) 06/07/1963 Pneumococcal Vaccine: 65+ Ye ars (2 of 2 - PCV) 12/12/2011 12/11/2010 Respiratory Syncytial Virus (RSV) or >=60 (1 - 1-dose 75+ series) 06/07/2019 Influenza Vaccine (#1) 2023 04/10/2018 HIB Vaccines Aged Out No longer eligi ble based on patient's age to complete this topic HPV Vaccines Aged Out No longer eligi ble based on patient's age to complete this topic Hepatitis A Vaccines Aged Out No long er eligible based on patient's age to complete this topic Hepatitis B Vaccines Aged Out No long er eligible based on patient's age to complete this topic IPV Vaccines Aged Out No longer eligi ble based on patient's age to complete this topic Meningococcal Vaccine Aged Out No domitila betty eligible based on patient's age to complete this topic Rotavirus Vaccines Aged Out No longer eligible based on patient's age to complete this topic [facility] [id number] 10:57:27 [facility] CenterXdqfkdm7545-76-05 10:57:08 FIRST ATTEMPT LEFT VM [place]2024-12-13 18:35:46* Imaging (Routine) - Pending Review Specialty Diagnoses / Procedures Referred By Contflora t Referred To Contact Radiology Diagnoses MCI (mild cognitive impairment) with memory loss Cerebrovascular accident (CVA) due to occlusion of right posterior cerebral artery (HCC) Procedures MRI brain wo IV contrast Angelito Acosta MD [address] [place] [address] Phone: tel: fax: Referral ID Status Reason Start Date Expiration Date V isits Requested Visits Authorized [id number] Pending Review 02/23/2024 08/21/2024 1 1 ET LITHOGRAPHIC PRESS SETTER [facility] [id number] 18:35:46* [facility] [id number] 18:35:46* Angelito Acosta MD - 02/23/2024 2:15 PM OFFSET LITHOGRAPHIC PRESS SETTER Phillip Aguilar is a 78 y.o. female presenting with memory loss. History of Present Illness Memory Loss TremorFall Had a R METAL TREATER stroke in 01/02, vision loss on the left. Memory problems afterthat that have worsened. Had a brain check with PCP, patient did poorly but she states she was distracted. Patient does notice some forgetfulness. No family history of memory problems, patient lives alone. Unaccompanied to the clinic, still independent with basic activities of daily living here for further evaluation. ObjectivePast Medical History She has a past medical history of Memory loss and Tremor. Surgical HistoryShe has a past surgical history that includes Foot surgery (Bilateral); Cholecystectomy; Back surgery; Back surgery; and Neck surgery. Family HistoryFamily History: Problem Relation Name Age of Onset No Known Problems Mother No Known Problems Father No Known Problems Sister No Known Problems Brother No Known Problems Mother's Sister No Known Problems Mother's Brother No Known Problems Father's Sister No Known Problems Father's Brother No Known Problems Maternal Grandmother No Known Problems Maternal Grandfather No Known Problems Paternal Grandmother No Known Problems Paternal Grandfather No Known Problems Other Social History She reports that she has never smoked. She has never been exposed to tobacco smoke. She has never used smokeless tobacco. She reports that she does not drink alcohol and does not use drugs. AllergiesPatient has no known allergies. MedicationsCurrent Outpatient Medications Medication Sig Dispense Refill amLODIPine (Norvasc) 5 MG tablet Take 5 mg by mouth 1 time each day. ascorbic acid (vitamin C) 500 MG tablet Take 500 mg by mouth 1 time each day. BABY ASPIRIN PO Take by mouth. certolizumab pegol (Cimzia) injection cholecalciferol 50 MCG (2000 UT) tablet Take by mouth. DULoxetine (Cymbalta) [address] capsule Take 60 mg by mouth in the morning and 60 mg in the evening. fenofibrate (Tricor) 54 MG tablet Take 54 mg by mouth 1 time each day. gabapentin (Neurontin) 600 MG tablet Take 1 tablet by mouth 1 time each day. HYDROcodone-acetaminophen ([place]) 10-325 MG tablet Take 1 tablet by mouth every 4 hours if needed. hydrOXYzine HCl (Atarax) 25 MG tablet Take 25 mg by mouth every 12 hours if needed. Jardiance 10 MG Take 10 mg by mouth 1 time each day. metoprolol succinate XL (Toprol-XL) 100 MG 24 hr tablet Take 100 mg by mouth 1 time each day. multivitamin (DEKAs Plus) Chew 1 tablet 1 time each day. predniSONE (Deltasone) 5 MG tablet Take 5 mg by mouth 1 time each day. solifenacin (VESIcare) 5 MG tablet Take 5 mg by mouth 1 time each day. tiZANidine (Zanaflex) 4 MG tablet Take 1 tablet by mouth at bedtime. zinc sulfate (Zincate) 44 MG/ML suspension Take by mouth. No current facility-administered medications for this visit. Review of Systems Neurological: Positive for tremors. Psychiatric/Behavioral: Positive for confusion. Last Recorded Vitals Vitals: 02/23/24 1443 BP: (!) 123/101 Pulse: 71 Resp: 16 Temp: 36.6 ?C (97.9 ?F) Physical ExamVitals reviewed. Constitutional: Appearance: Normal appearance. HENT: Head: Normocephalic. Eyes: General: Lids are normal. Extraocular Movements: Extraocular movements intact. Pupils: Pupils are equal, round, and reactive to light. Cardiovascular: Rate and Rhythm: Normal rate and regular rhythm. Pulmonary: Effort: Pulmonary effort is normal. Breath sounds: Normal breath sounds. Abdominal: General: Bowel sounds are normal. Musculoskeletal: General: Normal range of motion. Cervical back: Normal range of motion. Skin: General: Skin is warm and dry. Neurological: Motor: Motor strength is normal. Coordination: Coordination is intact. Deep Tendon Reflexes: Reflexes are normal and symmetric. Psychiatric: Mood and Affect: Mood normal. Speech: Speech normal. Thought Content: Thought content normal. Neurological ExamMental Status Awake, alert and oriented to person, place and time. Oriented to person, place, time and situation. Recalls 3 of 3 objects immediately. At 5 minutes recalls 2 of 3 objects. Recalls 2 of 3 objects with prompting. Unable to copy figure. Speech is normal. Able to name objects and name parts of objects. Able to spell words backwards. MMSE score: 26. Cranial NervesCN II: Visual acuity is normal. Left homonymous hemianopsia. Incomplete hemianopsia. CN III, IV, : Extraocular movements intact bilaterally. Normal lids and orbits bilaterally. Pupils equal round and reactive to light bilaterally. CN V: Facial sensation is normal. CN VII: Full and symmetric facial movement. CN VIII: Hearing is normal. CN IX, X: Palate elevates symmetrically. Normal gag reflex. CN XI: Shoulder shrug strength is normal. CN XII: Tongue midline without atrophy or fasciculations. MotorNormal muscle bulk throughout. Normal muscle tone. No abnormal involuntary movements. Strength is 5/5 throughout all four extremities. SensorySensation is intact to light touch, pinprick, vibration and proprioception in all four extremities. ReflexesDeep tendon reflexes are 2+ and symmetric in all four extremities. Coordination Cvtljx-vf-nojy, rapid alternating movements and pvsy-xi-fqps normal bilaterally without dysmetria. Gait Ambulates with a rolling walker. Relevant ResultsPrior Brain MRI Assessment & Plan Diagnoses and all orders for this visit: MCI (mild cognitive impairment) with memory loss - Beta-Amyloid 42/40 Ratio, Plasma; Future - MRI brain wo IV contrast; Future - Copper Level; Future - Vitamin B1 Level; Future - Vitamin B12 Level; Future - Zinc Level; Future - Sedimentation Rate; Future - C-Reactive Protein; Future Cerebrovascular accident (CVA) due to occlusion of right posterior cerebral artery (HCC) - Beta-Amyloid 42/40 Ratio, Plasma; Future - MRI brain wo IV contrast; Future - Copper Level; Future - Vitamin B1 Level; Future - Vitamin B12 Level; Future - Zinc Level; Future - Sedimentation Rate; Future - C-Reactive Protein; Future MMSE 26/30 here today. Referral did state MRI had been ordered, apparently patient's not sure so we will request that study as well as additional labs. [facility]2024-12-13 18:35:46Upcoming Encounters Scheduled Orders Name Type Priority Associated Diagnoses Orde r Schedule Beta-Amyloid 42/40 Ratio, Plasma Lab Routine MCI (mild cognitive impairment) with memory loss Cerebrovascular accident (CVA) due to occlusion of right posterior cerebral artery (HCC) Expected: 02/23/2024 (Approximate), Expires: 02/22/2025 MRI brain wo IV contrast Imaging Routine MCI (mild cognitive impairment) with memory loss Cerebrovascular accident (CVA) due to occlusion of right posterior cerebral artery (HCC) Expected: 02/23/2024, Expires: 02/22/2025 Copper Level Lab Routine MCI (mild cognitive impairment) with memory loss Cerebrovascular accident (CVA) due to occlusion of right posterior cerebral artery (HCC) Expected: 02/23/2024 (Approximate), Expires: 02/22/2025 Vitamin B1 Level Lab Routine MCI (mild cognitive impairment) with memory loss Cerebrovascular accident (CVA) due to occlusion of right posterior cerebral artery (HCC) Expected: 02/23/2024 (Approximate), Expires: 02/22/2025 Vitamin B12 Level Lab Routine MCI (mild cognitive impairment) with memory loss Cerebrovascular accident (CVA) due to occlusion of right posterior cerebral artery (HCC) Expected: 02/23/2024 (Approximate), Expires: 02/22/2025 Zinc Level Lab Routine MCI (mild cognitive impairment) with memory loss Cerebrovascular accident (CVA) due to occlusion of right posterior cerebral artery (HCC) Expected: 02/23/2024 (Approximate), Expires: 02/22/2025 Sedimentation Rate Lab Routine MCI (mild cognitive impairment) with memory loss Cerebrovascular accident (CVA) due to occlusion of right posterior cerebral artery (HCC) Expected: 02/23/2024 (Approximate), Expires: 02/22/2025 C-Reactive Protein Lab Routine MCI (mild cognitive impairment) with memory loss Cerebrovascular accident (CVA) due to occlusion of right posterior cerebral artery (HCC) Expected: 02/23/2024 (Approximate), Expires: 02/22/2025 Health Maintenance Due Date Last Done Comments Bone Density Scan 1945 Lipid Panel 1945 Medicare Annual Wellness (AWV) 1945 Annual Physical 06[birth year]07/1948 DTaP/Tdap/Td Vaccines (1 - Tdap) 06/07/1963 Zoster Vaccines (1 of 2) 06/07/1963 Pneumococcal Vaccine: 65+ Ye ars (2 of 2 - PCV) 12/12/2011 12/11/2010 Respiratory Syncytial Virus (RSV) or >=60 (1 - 1-dose 75+ series) 06/07/2019 Influenza Vaccine (#1) 2023 04/10/2018 HIB Vaccines Aged Out No longer eligi ble based on patient's age to complete this topic HPV Vaccines Aged Out No longer eligi ble based on patient's age to complete this topic Hepatitis A Vaccines Aged Out No long er eligible based on patient's age to complete this topic Hepatitis B Vaccines Aged Out No long er eligible based on patient's age to complete this topic IPV Vaccines Aged Out No longer eligi ble based on patient's age to complete this topic Meningococcal Vaccine Aged Out No domitila betty eligible based on patient's age to complete this topic Rotavirus Vaccines Aged Out No longer eligible based on patient's age to complete this topic [facility] 18:35:46 Diagnosis MCI (mild cognitive impairment) with memory loss - Primary Mild cognitive impairment, so stated Cerebrovascular accident (CV A) due to occlusion of right posterior cerebral artery (HCC) [facility]Tgrfdzp3251-59-12 18:35:46 [place] [id number] 13:08:01 Name and verified. Pt stated that she has burning and frequency that started today. Has been taking AZO but it is not helping. Advised her that I will send a lab order to [facility] for a UC. Verbalized understanding. AZRA TOMLINSON RN 05/17/2023 1:08 PM ET LITHOGRAPHIC PRESS SETTER Azra Tomlinson [facility]26[facility]-22 10:33:24 Patient is calling is having burning and can barely urinate this started today. ET LITHOGRAPHIC PRESS SETTER Annie GarciaMarymount HospitalXbvilj7790-53-20 16:03:18 Patient was called, no answer. LVM stating labs have been reviewed by provider and treatment has been sent to pharmacy. Left call back number for any questions. ET LITHOGRAPHIC PRESS SETTER Sakina Navarro MAMarymount HospitalLuogwd8594-15-72 15:27:50 Patient says she had ua done last week and want to go over results. ET LITHOGRAPHIC PRESS SETTER Annie GarciaMarymount HospitalLspifh2461-84-62 08:19:50 Images from the original note were not included. Azra Tomlinson RN 04/17/2023 4:54 PM OFFSET LITHOGRAPHIC PRESS SETTER Back to Top Name and verified. Pt advised of results and plan of care as stated below per provider. Pt verbalized understanding. Straight cath needed per Dr. Cadena. Appt made. AZRA TOMLINSON RN 04/17/2023 4:53 PM ET LITHOGRAPHIC PRESS SETTER Evin Juan RNMarymount HospitalZkogha2940-84-58 16:43:26 Astrid Aguilar is a 77 year old female Pt returning missed call to go over results. ET LITHOGRAPHIC PRESS SETTER Yulissa MaeMarymount HospitalEumeco8295-51-57 15:30:32 Attempted to contact patient. No answer, VM left. Evin Juan RN 04/17/2023 3:32 PM [facility]2024-02-05 14:52:00 Pt says she calling back to get UA results and says she has some issues with holding liquid says she needs to get her infusion so want to discuss ua results. GarciaMarymount HospitalMedqsl5835-26-72 16:15:49 Returned patients call. Patient advised that her urine results are not complete at this time. Patient verbalized understanding. Evin Juan RN 04/12/2023 4:17 PM Juan [facility] HospitalNbkoou4555-26-24 16:04:57 Pt says she dropped off ua yesterday is wanting to know if results are in says she having some discomfort. GarciaMarymount HospitalLeitow9687-33-93 11:08:16 Spoke with patient. 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 Patient states she needs a clear urine culture to receive RA infusion. Patient unable to make it to [place] to go to lab. Patient requesting order to be sen to [facility] [employer]. Order sent via [employer] online portal. Evin Juan RN 04/11/2023 11:10 AM Juan [facility] HospitalPifexn1714-54-83 10:55:44 Attempted to contact patient. Unable to hear patient. Will try again. Evin Juan RN 04/11/2023 10:56 AM [facility]2024-01-30 09:17:38 Pt calling back need to discuss ua results. ET LITHOGRAPHIC PRESS SETTER Annie GarciaMarymount HospitalDturnx3518-50-83 16:27:42 Pt is calling want to discuss her getting a ua done since she has an upcoming appt for infusion and needs to make sure she doesn't have infection. [place] [id number] 11:06:27 Name and verified. Pt stated that she is not able to urinate. "Drops" since 0230 this morning. Pain and feel full. Pain with urination. Instructed pt to go to ER to be evaluated. Verbalized understanding. AZRA TOMLINSON RN 04/06/2023 11:17 AM [facility] Azra Tomlinson [place] [id number] 10:46:24 Patient is calling to follow up and is requesting a call back. [facility] Tabitha HullElijah [place] [id number] 09:29:02 Patient is returning call. [place] [id number] 09:11:33 Patient states she finished antibiotic 2 days ago. She states she is having frequency, doesn't go much when she goes and it [place]. She is requesting a call back. [place] [id number] 11:45:52 Images from the original note were not included. Contacted patient regarding results and recommendations. Tayla Cadena MD 03/28/2023 1:34 PM OFFSET LITHOGRAPHIC PRESS SETTER Pt was taking Cipro (prescribed by outside provider) which is resistant. Please contact pt with results Bactrim DS sent to pharmacy on file Thank you Patient verbalized understanding. Juan [facility] HospitalXzurph0710-62-73 11:35:56 Pt says she was waiting to hear back about ua results and medication want to discuss. GarciaMarymount HospitalKcoiin2322-62-29 10:00:00 Addended by: TAYLA CADENA MD on: 03/28/2023 01:35 PM Modules accepted: Orders [facility]
[2024-07-06 16:42] LABS: Absolute Basophils 0.1 K/uL (0-0.5); Absolute Eosinophils 0.1 K/uL (0-0.5); Absolute Lymphocytes (CBC) 2.2 K/uL (0.7-4.9); Absolute Monocytes 0.7 K/uL (0.1-1.3); Absolute Neutrophil 8.3 K/uL (1.8-8.0); Basophils % 0.6 % (0-1.3); Eosinophils % 1.1 % (0-4.4); Hematocrit 37.4 % (36.0-45.0); Hemoglobin 12.1 g/dL (12.0-15.0); Lymphocytes % 19.5 % (15.3-44.8); MCH 26.1 pg (27.0-35.0); MCHC 32.3 g/dL (32.0-36.0); MPV 7.8 fL (7.6-11.3); Monocytes % 6.2 % (3.3-12.3); Neutrophils % 72.6 % (41.7-73.7); Platelets 425 thou/uL (152-406); RBC Red Blood Cell Count 4.62 M/uL (3.86-4.86); Red Cell Distribution Width 17.2 % (12.1-15.2)
[2024-07-06 16:50] LABS: Specific Gravity 1.014 (1.005-1.030); Sqamous Epithelial None Seen /HPF (None Seen); Urine Bacteria None Seen /HPF (<20); Urine Bilirubin NEGATIVE (Negative); Urine Blood Negative (Negative); Urine Clarity Extremely Turbid (Clear); Urine Color Yellow (Yellow); Urine Crystals Unidentified Few /HPF (None Seen); Urine Culture Reflex Order NOT NEEDED; Urine Glucose NEGATIVE (Negative); Urine Ketones NEGATIVE (Negative); Urine Microscopic Reflex YN ORDER UMIC; Urine Nitrite NEGATIVE (Negative); Urine Protein TRACE (Negative); Urine RBC <5 /HPF (None Seen); Urine Urobilinogen Normal (Normal); Urine WBC <5 /HPF (<5); Urine pH 7.5 (5.0-7.0)
[2024-07-06 16:54] LABS: PT Prothrombin Time 12.4 SECONDS (10-13.0); PTT, Activated Partial Thromb 33.6 SECONDS (27.2-37.4); Protime INR 1.09
[2024-07-06 16:59] LABS: AST/SGOT 16 U/L (15-37); Albumin 3.3 g/dL (3.4-5.0); Albumin/Globulin Ratio 0.7 (1.1-1.8); Alkaline Phosphatase 65 U/L (45-117); Anion Gap 10.1 mEq/L (5.0-15.0); BUN Blood Urea Nitrogen 15 mg/dL (7-18); Bicarbonate 27 mEq/L (21-32); Bilirubin Total 0.7 mg/dL (0.2-1.0); Globulin 4.8 g/dL (2.3-3.5); Glomerular Filtration Rate 35 ml/min (=/>90); Glucose Level 129 mg/dL (74-106); Potassium 3.1 mEq/L (3.5-5.1); Protein, Total 8.1 g/dL (6.4-8.2); Sodium Level 138 mEq/L (136-145)
[2024-07-06 17:13] LABS: ALT/SGPT < 14 U/L (13-56)
--- NOTE | 2024-07-06 17:46 | RAD REPORT ---
EXAMINATION: Abdomen Pelvis Wo Contrast CLINICAL INDICATION: Female, 79 years old.abd pain, possible UTI TECHNIQUE: CT abdomen and pelvis was performed, without IV contrast, as per department protocol. Axia l, sagittal and coronal reconstructions were obtained. One or more of the following dose reduction techniques were used: Automated exposure control, adjustment of the mA and/or kV according to the pat ient size, and/or iterative reconstruction. Unless otherwise specified, incidental findings do not require dedicated imaging follow-up. [id number]. IV CONTRAST: Not administered. COMPARISON: 06/01/2024 FINDINGS: The lack of intravenous contrast limits the sensitivity of this exam for evaluation of solid visceral organs, vascular structures, and retroperitoneum. LOWER CHEST: Chronic lung changes.Small pericardial effusion. Moderate coronary artery calcifications . UPPER GI: No significant abnormality. LIVER: No significant focal abnormality. GALLBLADDER/BILE DUCTS: Cholecystectomy. Moderate extrahepatic biliary ductal dilatation. This could be secondary to the post-cholecystectomy state. Recommend correlation with LFT's. If abnormal, consider MRCP for further evaluation. ? PANCREAS: Atrophy but no acute findings. SPLEEN: Unremarkable. ADRENALS: No adrenal masses. KIDNEYS AND URETERS: No hydronephrosis.Limited evaluation for renal lesions in the absence of IV cont rast.Renal calculi at the left renal pelvis are unchanged. The largest measures 6 mm is unchanged. ABDOMINAL AORTA AND OTHER VESSELS: Severe atherosclerotic changes. No aortic aneurysm. PERITONEUM: No abnormal free fluid. No free air. LYMPH NODES: No pathologic lymphadenopathy. ABDOMINAL WALL: Unremarkable SMALL BOWEL/COLON: Small bowel has normal course and caliber. No colonic wall thickening or pericolon ic inflammatory changes.No appendicitis. Moderate stool at the cecum. Diverticulosis without diverticulitis. URINARY BLADDER: Underdistended but grossly unremarkable. REPRODUCTIVE ORGANS: Uterus surgically absent. No adnexal abnormality. MUSCULOSKELETAL: Right iliac bone graft harvest site. No acute fracture. Remote L1 compression fract ure. ADDITIONAL FINDINGS: None. IMPRESSION: No acute findings within the abdomen or pelvis. Unchanged left renal pelvis calculi but not hydroneph rosis.
[2024-07-06] MEDS ORDERED: TRAMADOL HCL 50 MG TAB ONE (18:42)
--- NOTE | 2024-07-06 19:05 | ER ---
Nurse's Notes [facility] Name: Astrid Cash Age: 79 yrs Sex: Female : 1945 Arrival Date: 07/06/2024 Time: 15:34 Bed 7 Private MD: Diagnosis: Low back pain Presentation: 07/06 15:39 Chief complaint: Patient states: mid-lower back pain that began 2 weeks ago. Pt reports aa5 being seen by News Producer on Monday and prescribed antibiotics "for bladder infection". 15:39 Coronavirus screen: At this time, the client does not indicate any symptoms associated aa5 with coronavirus-19. Ebola Screen: Patient denies travel to an Ebola-affected area in the 21 days before illness onset. Initial Sepsis Screen: Does the patient meet any 2 criteria? HR > 90 bpm. Does the patient have a suspected source of infection?. Risk Assessment: Do you want to hurt yourself or someone else? Patient reports no desire to harm self or others. Onset of symptoms was June 2024. 15:39 Acuity: [place] 3 aa5 15:39 Method Of Arrival: Wheelchair aa5 Historical: - Allergies: 15:49 Sulfa (Sulfonamide Antibiotics); aa5 - PMHx: 15:49 Anxiety; Chronic pain; Depression; Hypertension; Rheumatoid Arthritis; aa5 - PSHx: 15:49 back surgery; Cholecystectomy; ; hysterectomy; neck surgery; aa5 - Immunization history:: Adult Immunizations unknown. - Infectious Disease History:: Denies. - Social history:: Smoking status: Patient denies any tobacco usage or history of. - Family history:: not pertinent. - Hospitalizations: : No recent hospitalization is reported. Screenin:20 [facility] ED Fall Risk Assessment (Adult) History of falling in the last 3 months, hb including since admission No falls in past 3 months (0 pts) Confusion or Disorientation No (0 pts) Intoxicated or Sedated No (0 pts) Impaired Gait Yes (1 pt) Mobility Assist Device Used Yes (1 pt) Altered Elimination Yes (1 pt) Score/Fall Risk Level 3 or more points = High Risk Oriented to surroundings, Maintained a safe environment, Educated pt \\T\\ family on fall prevention, incl call for assistance when getting out of bed. Abuse screen: Denies threats or abuse. Denies injuries from another. Nutritional screening: No deficits noted. Tuberculosis screening: No symptoms or risk factors identified. Assessment: 16:00 General: Appears in no apparent distress. uncomfortable, Behavior is cooperative, hb anxious, restless. Pain: Pain currently is 4 out of 10 on a pain scale. Neuro: Level of Consciousness is awake, alert, obeys commands, Oriented to person, place, time, situation. Cardiovascular: Patient's skin is warm and dry. Respiratory: Respiratory effort is even, unlabored, Respiratory pattern is regular, symmetrical. GI: No signs and/or symptoms were reported involving the gastrointestinal system. : Reports suprapubic, pelvic, an low back pain, dysuria. EENT: No signs and/or symptoms were reported regarding the EENT system. Derm: Skin is pink, warm \\T\\ dry. Musculoskeletal: No signs and/or symptoms reported regarding the musculoskeletal system. 18:41 Reassessment: Patient appears in no apparent distress at this time. Patient and/or hb family updated on plan of care and expected duration. Pain level reassessed. Patient is alert, oriented x 3, equal unlabored respirations, skin warm/dry/pink. Vital Signs: 15:39 BP 192 / 100; Pulse 110; Resp 20 S; Temp 97.9(O); Pulse Ox 96% on R/A; Weight 58.06 kg aa5 (R); Height 5 ft. 5 in. (R); 18:19 BP 135 / 82; Pulse 110; Resp 18; Pulse Ox 100% ; cm10 18:41 BP 162 / 92; Pulse 108; Resp 1; Pulse Ox 99% on R/A; hb 19:25 BP 149 / 86; Pulse 94; Resp 16; Pulse Ox 98% on R/A; dd2 15:39 Body Mass Index 21.30 (58.06 kg, 165.1 cm) aa5 ED Course: 15:38 Patient arrived in ED. im 15:39 Sebastian Tyson MD is Attending Physician. rn 15:39 Arm band placed on Patient placed in an exam room, on a stretcher. aa5 15:51 Initial lab(s) drawn, by me, held in ED. Inserted saline lock: 18 gauge in right cm10 forearm, using aseptic technique. Blood collected. Flushed with 10 mL NS. 15:53 Triage completed. aa5 16:00 Patient has correct armband on for positive identification. Bed in low position. Call light in reach. Side rails up X 1. Provided Education on: tests, result times. Client placed on continuous cardiac and pulse oximetry monitoring. NIBP monitoring applied. satellite project site monitor on. Pulse ox on. NIBP on. 16:20 CMP Sent. hb 16:20 Lactate w/ 2H reflex if indic. Sent. hb 16:20 Protime (+inr) Sent. hb 16:20 Ptt, Activated Sent. hb 16:20 Urinalysis w/ reflexes Sent. hb 16:22 Speci-cath kit inserted, using sterile technique, 16 Fr., specimen obtained. returned hb clear yellow urine. Patient tolerated well. 17:28 Abdomen In Process Unspecified. EDMS 19:25 No provider procedures requiring assistance completed. IV discontinued, intact, dd2 bleeding controlled, No redness/swelling at site. Pressure dressing applied. Administered Medications: 18:45 Drug: traMADol PO 50 mg PO once Route: PO; hb Medication: 16:00 VIS not applicable for this client. hb Outcome: 19:04 Discharge ordered by . rn 19:25 Discharged to home via wheelchair, with family, dd2 19:25 Condition: stable 19:25 Discharge instructions given to patient, Instructed on discharge instructions, follow up and referral plans. medication usage, Demonstrated understanding of instructions, follow-up care, medications, Prescriptions given X 1, 19:49 Patient left the ED. dd2 Signatures: Dispatcher [employer] EDMS Sebastian Tyson MD MD rn Calderon, Audri, RN RN aa5 Samara Valles RN RN Dana Crane Clarissa, RN RN cm10 SANDRA GARCIA RN RN dd2
--- NOTE | 2024-07-06 19:05 | EDPHYS ---
Physician Documentation [facility] Name: Astrid Cash Age: 79 yrs Sex: Female : 1945 Arrival Date: 07/06/2024 Time: 15:34 Bed 7 Private MD: ED Physician Sebastian Tyson HPI: 07/06 16:03 This 79 yrs old Female presents to ER via Wheelchair with complaints of rn Urinary Problem. 16:03 The patient presents with urinary symptoms, dysuria, frequency, urgency. Onset: The rn symptoms/episode began/occurred 3 day(s) ago. Modifying factors: The symptoms are alleviated by nothing, the symptoms are aggravated by urinating. Severity of symptoms: At their worst the symptoms were moderate, in the emergency department the symptoms are unchanged. The patient has not experienced similar symptoms in the past. The patient has been recently seen by a physician:. Patient reports seen by PCP and diagnosed with urinary tract infection 3 days ago. Placed on levofloxacin and taking it as prescribed. Patient states this feels worse with chills, nausea, and increased lower abdominal and low back pain.. Historical: - Allergies: 15:49 Sulfa (Sulfonamide Antibiotics); aa5 - PMHx: 15:49 Anxiety; Chronic pain; Depression; Hypertension; Rheumatoid Arthritis; aa5 - PSHx: 15:49 back surgery; Cholecystectomy; ; hysterectomy; neck surgery; aa5 - Immunization history:: Adult Immunizations unknown. - Infectious Disease History:: Denies. - Social history:: Smoking status: Patient denies any tobacco usage or history of. - Family history:: not pertinent. - Hospitalizations: : No recent hospitalization is reported. ROS: 16:03 Constitutional: Negative for fever, chills, and weight loss, Abdomen/GI: Positive for rn lower abdominal pain Back: Positive for lower back pain : Reports dysuria, no bleeding Exam: 16:03 Constitutional: This is a well developed, well nourished patient who is awake, alert, rn and in no acute distress. Cardiovascular: Tachycardic, regular Respiratory: No increased work of breathing, no retractions or nasal flaring. Abdomen/GI: Soft, mild suprapubic tenderness. Back: No CVA tenderness Skin: No cyanosis Vital Signs: 15:39 BP 192 / 100; Pulse 110; Resp 20 S; Temp 97.9(O); Pulse Ox 96% on R/A; Weight 58.06 kg aa5 (R); Height 5 ft. 5 in. (R); 18:19 BP 135 / 82; Pulse 110; Resp 18; Pulse Ox 100% ; cm10 18:41 BP 162 / 92; Pulse 108; Resp 1; Pulse Ox 99% on R/A; hb 19:25 BP 149 / 86; Pulse 94; Resp 16; Pulse Ox 98% on R/A; dd2 15:39 Body Mass Index 21.30 (58.06 kg, 165.1 cm) aa5 MDM: 15:40 Medical Screening Exam initiated rn 19:03 Differential diagnosis: kidney stone, urinary tract infection, Pyelonephritis, rn musculoskeletal pain, radiculopathy. Data reviewed: vital signs, nurses notes, lab test result(s), radiologic studies, CT scan, and as a result, I will discharge patient. Counseling: I had a detailed discussion with the patient and/or guardian regarding the historical points, exam findings, and any diagnostic results supporting the discharge/admit diagnosis, lab results, radiology results, the need for outpatient follow up, to return to the emergency department if symptoms worsen or persist or if there are any questions or concerns that arise at home. Special discussion: I discussed with the patient/guardian in detail that at this point there is no indication for admission to the hospital. It is understood, however, that if the symptoms persist or worsen the patient needs to return immediately for re-evaluation. ED course: No acute findings and workup today. Has mild elevation of WBC but negative lactic acid and no acute findings in urine or CT abdomen pelvis. Has unchanged kidney stones but nothing actively passing. No hydronephrosis. Patient was unaware of old L1 compression fracture. Patient reports back pain that is worse with movement and palpation. Patient already on Levaquin p.o. No indication at this time for emergent admission. I have personally reviewed all of the results, including but not limited to blood tests and imaging deemed necessary to safely discharge this patient at this time. All results given to and printed out for patient. I personally went over all the results with the patient and answered all questions. Patient will follow-up with PCP and or specialist as discussed. Return precautions given and understood.. 07/06 16:01 Order name: CBC with Diff; Complete Time: 16:57 rn 07/06 16:01 Order name: CMP; Complete Time: 17:15 rn 07/06 16:01 Order name: Lactate w/ 2H reflex if indic.; Complete Time: 17:15 rn 07/06 16:01 Order name: Protime (+inr); Complete Time: 16:57 rn 07/06 16:01 Order name: Ptt, Activated; Complete Time: 16:57 rn 07/06 16:01 Order name: Urinalysis w/ reflexes; Complete Time: 16:57 rn 07/06 17:21 Order name: Abdomen ; Complete Time: 17:53 EDMS 07/06 16:01 Order name: Accucheck; Complete Time: 16:20 rn 07/06 16:01 Order name: Cardiac monitoring; Complete Time: 16:20 rn 07/06 16:01 Order name: EKG - Nurse/Tech; Complete Time: 16:20 rn 07/06 16:01 Order name: IV Saline Lock - Large Bore; Complete Time: 16:20 rn 07/06 16:01 Order name: Labs collected and sent; Complete Time: 16:20 rn 07/06 16:01 Order name: O2 Per Protocol; Complete Time: 16:20 rn 07/06 16:01 Order name: O2 Sat Monitoring; Complete Time: 16:20 rn 07/06 16:01 Order name: Vital Signs; Complete Time: 16:20 rn Administered Medications: 18:45 Drug: traMADol PO 50 mg PO once Route: PO; hb Disposition Summary: 07/06/24 19:04 Discharge Ordered Notes: Location: Home rn Problem: an ongoing problem rn Symptoms: have improved rn Condition: Stable rn Diagnosis - Low back pain rn Followup: rn - With: Private Physician - When: As needed - Reason: Recheck today's complaints, Re-evaluation by your physician Discharge Instructions: - Discharge Summary Sheet rn - Chronic Back Pain rn - Pain Without a Known Cause rn Forms: - Medication Reconciliation Form rn - Antibiotic staffing rn - Prescription Opioid Use rn - Patient Portal Instructions rn - Leadership Thank You Letter rn Prescriptions: - Tramadol 50 mg Oral Tablet - take 1 tablet ORAL route every 8 hours as needed; 12 tablet; Refills: 0, rn Product Selection Permitted Signatures: Dispatcher [employer] Sebastian Johnson MD MD rn Calderon, Audri, RN RN aa5 Samara Valles, NARCISA RN hb Corrections: (The following items were deleted from the chart) 16:01 16:01 BLOOD CULTURE*+BA.LAB.BRZ ordered. EDMS EDMS 16:01 16:01 CBC+H.LAB.BRZ ordered. EDMS EDMS 16:01 16:01 COMPREHENSIVE METABOLIC PANEL+C.LAB.BRZ ordered. EDMS EDMS 16:01 16:01 LACTATE+C.LAB.BRZ ordered. EDMS EDMS 16:01 16:01 PROTIME (+INR)+COAG.LAB.BRZ ordered. EDMS EDMS 16:01 16:01 PTT, ACTIVATED+COAG.LAB.BRZ ordered. EDMS EDMS 16:01 16:01 Urinalysis+U.LAB.BRZ ordered. EDMS EDMS 16:01 16:01 Abdomen Pelvis W Con+CT.RAD.BRZ ordered. EDMS EDMS
[2024-07-08 21:37] VITALS: TEMP 97.9
[2024-07-08 21:42] VITALS: BP 149/86; O2SAT 98
== END 2024-07-06 19:49 | disposition home or self-care (01) ==
LOC: ER 15:34
DX: M54.50 Low back pain, unspecified (principal); R30.0 Dysuria; R11.0 Nausea
CPT/HCPCS: 36415; 74176; 80053; 81001; 83605; 85025; 85610; 85730; 87040; 99285

== ENCOUNTER 2024-07-12 18:01 | Emergency (ER) | payer OTHER ==
--- OUTSIDE RECORDS SUMMARY | 2024-07-12 18:27 | XMS REPORT | Continuity of Care Document ---
Author Name Unknown Address [address] [place] [address] [facility] Address [address] [facility] [address] [place] [address] Care Team Providers Care Scale Assembly Set Up Worker Name Role Phone Mariluz Chisholm DO Primary Care Physician + [phone] Angelito Acosta MD Attending Clinician ANGELITO ACOSTA Attending Clinician Unavail Tayla Monroy MD Attending Clinician [phone] TAYLA CADENA Attending Clinician Unavailable Nurse, [facility] Attending Clinician Unavailable Doctor Unassigned, [facility] Attending Clinician U aHkeem Samuel MD Attending Clinician [phone] HAKEEM WALKER Attending Clinician Unavail able HAKEEM WALKER Attending Clinician Unavail able HAKEEM WALKER Admitting Clinician Unavail able Payers Payer Name Policy Type Policy Number Effective Date Expirati on Date Source [employer] MEDICARE ADVANTAGE Medicare [id number] 2023 00:00:00 Problems Condition Name Condition Details [...] hematuria Disease Active 09-20 00:00: 00 Jori ePrez CKD (chronic kidney disease) CKD (chronic kidney [...] NO KNOWN ALLERGIE S Drug Class Active [facility] Social History Social Habit Start Date Stop Date Quantity Comments Source Gender identity 2023-06-04 05:02:59 Identifies as female gender (finding) Tamanna Perez Exposure to SARS-CoV-2 (event) Not sure [facility] History SDOH Alcohol Std Drinks [facility] History SDOH Alcohol Binge [facility] ASSERTION Possible [facility] Sexual orientation [facility] Tobacco use and exposure 2024-02-23 00:00:00 2024-02-23 00:00:00 Smokeless tobacco non-user [facility] Alcoholic beverage intake 2024-02-23 00:00:00 2024-02-23 00:00:00 Lifetime non-drinker (finding) [facility] History of Social function 2024-02-23 00:00:00 2024-02-23 00:00:[address] [facility] Alcohol intake 2019-05-14 00:00:00 2019-05-14 00:00:00 Ex-drinker (finding) [facility] History SDOH Alcohol Frequency 2019-05-14 00:00:00 2019-05-14 00:00:00 1 [facility] Sex Assigned At 1945 00:00:00 1945 00:00:00 [facility] Smoking Status Start Date Stop Date Source Never smoked tobacco Jori [facility] Medications Ordered Medication Name Filled Medication Name Start Date Stop Date Current Medication? Ordering Clinician Indication Dosage Frequency Signature (SIG) Comments Components Source certolizuma b pegol (Cimzia) injection certolizuma b pegol (Cimzia) injection 2023-03 14:41: 06 Yes Jori [facility] ascorbic acid (vitamin C) 500 MG tablet ascorbic acid (vitamin C) 500 MG tablet 2023-03 14:41: 06 Yes 500mg QD Take 500 mg by mouth 1 time each day. J[facility]uced[facility] cholecalcif alejandro 50 MCG (2000 UT) tablet cholecalcif alejandro 50 MCG (2000 UT) tablet 2023-03 14:41: 06 Yes Take by mouth. Jori [facility]uced[facility] multivitami n (DEKAs Plus) multivitami n (DEKAs Plus) 2023-03 14:41: 06 Yes 1{tbl} QD Chew 1 tablet 1 time each day. Jori [facility]uced[facility] metoprolol succinate XL (Toprol-XL) 100 MG [...] each day. Jori Perez HYDROcodone -acetaminop hen ([place]) 10-325 MG tablet HYDROcodone -acetaminop hen ([place]) 10-325 MG tablet 08-30 00:00: 00 Yes [...] -19 00:00: 00 05-07 05:59 :00 No [id number] 100mg Take 1 capsule by mouth in the morning and 1 capsule in the evening. Do all this for 5 days. [facility] sulfamethox azole-trime thoprim 800-160 mg per tablet 16 00:00: 00 04-05 05:59 :00 No [id number] 1{tbl} Take 1 tablet by mouth in the morning and 1 tablet in the evening. Do all this for 7 days. [facility] ZINC ACETATE ORAL 03-22 09:43: 29 Yes Take by mouth. [facility] vitamin C with juliana hips (VITAMIN C) 1,000 mg tablet 03-22 09:43: 29 Yes 1000mg Take 1 tablet by mouth in the morning. [facility] HYDROCODONE /ACETAMINOP HEN (NORCO ORAL) 03-22 09:42: 31 Yes 10mg Take 10-325 mg by mouth every 6 (six) hours as needed for Pain (scale 4-6) or Pain (scale 7-10). [facility] metoprolol succinate XL 100 mg 24 hr tablet 03-22 09:42: 31 Yes 100mg Take 1 tablet by mouth in the morning. [facility] PREDNISONE ORAL 03-22 09:42: 31 Yes 5mg Take 5 mg by mouth in the morning. [facility] GABAPENTIN ORAL 03-22 09:42: 31 Yes 600mg Take 600 mg by mouth in the morning and 600 mg at noon and 600 mg in the evening. [facility] MULTIVIT,CA ,MIN-D3-HER BAL #[id number] ORAL 03-22 09:42: 31 Yes 1{tbl} Take 1 tablet by mouth daily. [facility] foLIC acid 1 mg tablet 03-22 09:41: 34 03-22 00:00 :00 No 1mg Take 1 mg by mouth daily. [facility] duloxetine HCl (CYMBALTA ORAL) 03-22 09:41: 32 Yes 120mg Take 120 mg by mouth daily. [facility] aspirin 81 mg chewable tablet 03-22 09:41: 08 Yes 81mg Take 1 tablet by mouth in the morning. [facility] amLODIPine 5 mg tablet 03-22 09:41: 08 Yes 5mg Take 1 tablet by mouth in the morning. [facility] alendronate 35 mg tablet 03-22 09:41: 07 Yes 35mg Take 1 tablet by mouth weekly. Takes on Tuesdays [facility] estradioL (ESTRACE) 0.01 % (0.1 mg/gram) vaginal cream 03-22 00:00: 00 Yes [id number] Apply 1g vaginally at bedtime every night for 2 weeks and then apply 1g vaginally at bedtime 2 OR 3 times per week [facility] gadobenate dimeglumine (MULTIHANCE -20 mL) injection 0.2 mL/kg 07-31 19:30: 00 07-31 19:30 :00 No .2mL/kg 0.2 mL/kg, Intravenou s, ONCE, 1 dose, [facility] 08/01/19 at 1430, Routine [facility] foLIC acid 1 mg tablet 04-10 15:42: 32 Yes 1mg Take 1 mg by mouth daily. [facility] GABAPENTIN ORAL 04-10 15:42: 32 Yes 900mg Take 900 mg by mouth 3 (three) times daily. [facility] MULTIVIT,CA ,MIN-D3-HER BAL #[id number] ORAL 04-10 15:42: 32 Yes 1{tbl} Take 1 tablet by mouth daily. [facility] alendronate 35 mg tablet 04-10 15:42: 32 Yes 35mg Take 35 mg by mouth weekly. Takes on Tuesdays [facility] PREDNISONE ORAL 04-10 15:42: 32 Yes 4mg Take 4 mg by mouth daily. [facility] HYDROCODONE /ACETAMINOP HEN (NORCO ORAL) 04-10 15:42: 32 Yes 10mg Take 10-325 mg by mouth every 6 (six) hours as needed for Pain (scale 4-6) or Pain (scale 7-10). [facility] aspirin 81 mg chewable tablet 04-10 15:42: 32 Yes 81mg Take 81 mg by mouth daily. [facility] amLODIPine 5 mg tablet 04-10 15:42: 32 Yes 5mg Take 5 mg by mouth daily. [facility] metoprolol succinate XL 100 mg 24 hr tablet 04-10 15:42: 32 Yes 100mg Take 100 mg by mouth daily. [facility] duloxetine HCl (CYMBALTA ORAL) 04-10 15:42: 32 Yes 120mg Take 120 mg by mouth daily. [facility] HYDROCODONE /ACETAMINOP HEN (NORCO ORAL) 04-10 09:42: 32 Yes 10mg Take 10-325 mg by mouth every 6 (six) hours as needed for Pain (scale 4-6) or Pain (scale 7-10). [facility] aspirin 81 mg chewable tablet 04-10 09:42: 32 Yes 81mg Take 81 mg by mouth daily. [facility] amLODIPine 5 mg tablet 04-10 09:42: 32 Yes 5mg Take 5 mg by mouth daily. [facility] metoprolol succinate XL 100 mg 24 hr tablet 04-10 09:42: 32 Yes 100mg Take 100 mg by mouth daily. [facility] foLIC acid 1 mg tablet 04-10 09:42: 32 Yes 1mg Take 1 mg by mouth daily. [facility] PREDNISONE ORAL 04-10 09:42: 32 Yes 4mg Take 4 mg by mouth daily. [facility] duloxetine HCl (CYMBALTA ORAL) 04-10 09:42: 32 Yes 120mg Take 120 mg by mouth daily. [facility] GABAPENTIN ORAL 04-10 09:42: 32 Yes 900mg Take 900 mg by mouth 3 (three) times daily. [facility] MULTIVIT,CA ,MIN-D3-HER BAL #[id number] ORAL 04-10 09:42: 32 Yes 1{tbl} Take 1 tablet by mouth daily. [facility] alendronate 35 mg tablet 04-10 09:42: 32 Yes 35mg Take 35 mg by mouth weekly. Takes on Tuesdays [facility] cyclobenzap rine 5 mg tablet 2016-03 00:00: 00 03-22 00:00 :00 No 5mg Take 1 tablet by mouth 3 (three) times daily. [facility] Immunizations Ordered Immunization Name Filled Immunization Name Date Status Comments Source Influenza High Dose 2023-05-17 00:00:00 Completed [facility] Influenza High Dose 2023-04-27 00:00:00 Completed [facility] Influenza High Dose 2023-04-18 14:00:00 Completed [facility] Influenza High Dose 2023-04-17 00:00:00 Completed [facility] Influenza High Dose 2023-04-12 00:00:00 Completed [facility] Influenza High Dose 2023-04-11 00:00:00 Completed [facility] Influenza High Dose 2023-04-10 00:00:00 Completed [facility] Influenza High Dose 2023-04-06 00:00:00 Completed [facility] Influenza High Dose 2023-04-03 00:00:00 Completed [facility] Influenza High Dose 2023-03-22 10:00:00 Completed [facility] Influenza High Dose 2023-03-16 00:00:00 Completed [facility] Influenza High Dose 2018-04-10 00:00:00 Completed [facility] Influenza High Dose 2018-04-10 00:00:00 Completed [facility] Influenza High Dose 2018-04-10 00:00:00 Completed [facility] Influenza High Dose 2018-04-10 00:00:00 Completed [facility] Influenza High Dose 2018-04-10 00:00:00 Completed [facility] Influenza High Dose 2018-04-10 00:00:00 Completed [facility] Influenza High Dose 2018-04-10 00:00:00 Completed [facility] Influenza High Dose 2018-04-10 00:00:00 Completed [facility] Vital Signs Vital Name Observation Time Observation Value Comments Roxanna rangel Systolic blood pressure 2024-02-23 14:43:00 123 mm[Hg] [facility] Epic Diastolic blood pressure 2024-02-23 14:43:00 101 mm[Hg] [facility] Heart rate 2024-02-23 14:43:00 71 /min [facility] Body temperature 2024-02-23 14:43:00 36.61 [facility] Respiratory rate 2024-02-23 14:43:00 16 /min [facility] Body height 2024-02-23 14:43:00 152.4 cm [facility] [place] Epic Body weight 2024-02-23 14:43:00 58.514 kg [facility] [place] Epic BMI 2024-02-23 14:43:00 25.19 kg/m2 [facility] Epic Systolic blood pressure 2024-02-23 14:43:00 123 mm[Hg] Tamanna [facility] Epic Diastolic blood pressure 2024-02-23 14:43:00 101 mm[Hg] [facility] Epic Heart rate 2024-02-23 14:43:00 71 /min [facility] Epic Body temperature 2024-02-23 14:43:00 36.61 Jacquelin [facility] Epic Respiratory rate 2024-02-23 14:43:00 16 /min [facility] Epic Body height 2024-02-23 14:43:00 152.4 cm [facility] [place] Epic Body weight 2024-02-23 14:43:00 58.514 kg [facility] Epic BMI 2024-02-23 14:43:00 25.19 kg/m2 [facility] Systolic blood pressure 2023-03-22 15:38:00 130 mm[Hg] [facility] Diastolic blood pressure 2023-03-22 15:38:00 75 mm[Hg] [facility] Heart rate 2023-03-22 15:38:00 90 /min Unive [facility] Body temperature 2023-03-22 15:38:00 36.83 Jacquelin [facility] Respiratory rate 2023-03-22 15:38:00 18 /min [facility] Body height 2023-03-22 15:38:00 165.1 cm [facility] Body weight 2023-03-22 15:38:00 66.225 kg [facility] BMI 2023-03-22 15:38:00 24.30 kg/m2 [facility] Oxygen saturation in Arterial blood by Pulse oximetry 2023-03-22 15:38:00 97 /min [facility] Systolic blood pressure 2019-09-13 16:28:00 140 mm[Hg] [facility] Diastolic blood pressure 2019-09-13 16:28:00 80 mm[Hg] [facility] Heart rate 2019-09-13 16:28:00 73 /min Unive [facility] Body temperature 2019-09-13 16:28:00 36.61 Jacquelin [facility] Respiratory rate 2019-09-13 16:28:00 18 /min [facility] Body weight 2019-09-13 16:28:00 65.137 kg [facility] BMI 2019-09-13 16:28:00 23.90 kg/m2 [facility] Systolic blood pressure 2019-09-13 16:28:00 140 mm[Hg] [facility] Diastolic blood pressure 2019-09-13 16:28:00 80 mm[Hg] [facility] Heart rate 2019-09-13 16:28:00 73 /min [facility] Body temperature 2019-09-13 16:28:00 36.61 Jacquelin [facility] Respiratory rate 2019-09-13 16:28:00 18 /min [facility] Body weight 2019-09-13 16:28:00 65.137 kg [facility] BMI 2019-09-13 16:28:00 23.90 kg/m2 [facility] Systolic blood pressure 2019-05-14 21:03:00 139 mm[Hg] [facility] Diastolic blood pressure 2019-05-14 21:03:00 86 mm[Hg] Cardale o [facility] Heart rate 2019-05-14 21:03:00 80 /min [facility] Body temperature 2019-05-14 21:03:00 36.5 Jacquelin [facility] Respiratory rate 2019-05-14 21:03:00 16 /min [facility] Body height 2019-05-14 21:03:00 165.1 cm [facility] Body weight 2019-05-14 21:03:00 65.772 kg [facility] BMI 2019-05-14 21:03:00 24.13 kg/m2 [facility] Procedures Procedure Date / Time Performed Performing Clinician Source Beta-Amyloid 42/40 Ratio, Plasma 2024-02-23 00:00:[address] [facility] MRI brain wo IV contrast 2024-02-23 00:00:[address] [facility] Copper Level 2024-02-23 00:00:[address] [facility] Vitamin B1 Level 2024-02-23 00:00:00 [facility]anco [facility] Vitamin B12 Level 2024-02-23 00:00:00 [facility] Zinc Level 2024-02-23 00:00:[address] [facility] Sedimentation Rate 2024-02-23 00:00:00 [facility] C-Reactive Protein 2024-02-23 00:00:00 [facility] URINE CULTURE 2023-04-18 20:09:00 Tayla Cadena [facility] URINE CULTURE 2023-03-22 16:47:00 Tayla Cadena [facility] POCT URINALYSIS AUTO 2023-03-22 15:54:00 Odette Cadena [facility] CONNOR,POST-VOID RES,US,NON-IMAGING 2023-03-22 00:00:00 Tayla Cadena [facility] REFERRAL- REQUEST/RESPONSE 2023-03-16 06:01:00 Doctor Unassigned, [facility] EXTERNAL PROVIDER RECORDS 2022-09-14 05:01:00 Do ctor Unassigned, [facility] MR LUMBAR SPINE W WO CONTRAST 2019-08-01 19:22:35 AaronHakeem [facility] INSURANCE CORRESPONDENCE 2019-06-07 05:01:00 Doc tor Unassigned, [facility] ASSIGNMENT OF BENEFITS 2019-05-14 20:40:19 Docto r Unassigned, [facility] EXTERNAL PROVIDER RECORDS 2019-05-01 06:01:00 Do ctor Unassigned, [facility] REFERRAL- REQUEST/RESPONSE 2019-05-01 06:01:00 Doctor Unassigned, [facility] Encounters Start Date/Time End Date/Time Encounter Type Admission Type Attending [facility] Facility Care Department Encounter ID Source 2024-03-21 00:00:00 2024-03-21 08:30:25 Telephone Angelito Acosta [facility] [id number] 350.1.13.70 8.2.7.2.686 [id number] [facility] 2024-03-19 00:00:00 2024-03-19 10:44:49 Telephone Rosio Angelito [facility] [id number] 350.1.13.70 8.2.7.2.686 [id number] [facility] bryanna [facility] 2024-03-07 00:00:00 2024-03-07 10:57:17 Telephone Angelito Acosta [facility] 1.2.840.114 350.1.13.70 8.2.7.2.686 [id number] [facility] bryanna [facility] 2024-02-23 14:25:41 2024-02-23 15:28:28 Outpatient Elective ANGELITO ACOSTA [facility] [id number] EOUT 2024-02-23 14:15:00 2024-02-23 15:28:28 Consult Angelito Acosta 1.2.840.114 350.1.13.70 8.2.7.2.686 [id number] Jori Euced[facility] 2023-05-17 00:00:00 2023-05-17 00:00:00 [facility] 1.2.840.114 350.1.13.10 4.2.7.2.686 [id number] [facility] 2023-04-27 00:00:00 2023-04-27 00:00:00 Telephone [facility] BUILDING 1.2840.114 350.1.13.10 4.2.7.2.686 [id number] [facility] 2023-04-18 14:00:00 2023-04-18 16:55:22 Outpatient R SURINDER TAYLA [facility] [id number] [facility] 2023-04-18 14:00:00 2023-04-18 16:55:22 Nurse Visit [facility], [facility] 1.2840.114 350.1.13.10 4.2.7.2.686 [id number] [facility] 2023-04-17 00:00:00 2023-04-17 00:00:00 Telephone [facility] BUILDING 1.2840.114 350.1.13.10 4.2.7.2.686 [id number] [facility] 2023-04-12 00:00:00 2023-04-12 00:00:[address] [facility] BU[facility] 1.2840.114 350.1.13.10 4.2.7.2.686 [id number] [facility] 2023-04-11 00:00:00 2023-04-11 00:00:00 [facility] 1.2.840.114 350.1.13.10 4.2.7.2.686 [id number] [facility] 2023-04-10 00:00:00 2023-04-10 00:00:00 [facility] 1.2.840.114 350.1.13.10 4.2.7.2.686 [id number] [facility] 2023-04-06 00:00:00 2023-04-06 00:00:00 [facility] 1.2.840.114 350.1.13.10 4.2.7.2.686 [id number] [facility] 2023-04-03 00:00:00 2023-04-03 00:00:00 [facility] 1.2840.114 350.1.13.10 4.2.7.2.686 [id number] [facility] 2023-03-22 10:00:00 2023-03-22 10:48:43 [facility] [id number] [facility] 2023-03-22 10:00:00 2023-03-22 10:48:43 Office Visit Tayla Cadena [facility] 1.20.114 350.1.13.10 4.2.7.2.686 [id number] [facility] 2023-03-16 00:00:00 2023-03-16 00:00:00 Orders Only Doctor Unassigned, [facility] 1.2.840.114 350.1.13.10 4.2.7.2.686 [id number] [facility] 2022-09-14 00:00:00 2022-09-14 00:00:00 Orders Only Doctor Unassigned, [facility] 1.2840.114 350.1.13.10 4.2.7.2.686 [id number] [facility] 2019-09-13 11:09:01 2019-09-13 13:29:16 Office Visit Hakeem Walker [facility] 1.284.114 350.1.13.10 4.2.7.2.686 [id number] [facility] 2019-09-13 11:09:01 2019-09-13 13:29:16 Office Visit Hakeem Walker [facility] 1.2.114 350.1.13.10 4.2.7.2.686 [id number] 2019-09-13 11:20:00 2019-09-13 11:20:00 Outpatient HAKEEM JAVIER [facility] [id number] [facility] 2019-09-10 00:00:00 2019-09-10 00:00:00 Telephone Hakeem Walker [facility] 1.284.114 350.1.13.10 4.2.7.2.686 [id number] [facility] 2019-08-01 12:25:14 2019-08-01 23:59:00 Outpatient HAKEEM JAVIER [facility] [id number] [facility] 2019-08-01 12:25:00 2019-08-01 23:59:00 Hospital Encounter Hakeem Walker [facility] 1.284.114 350.1.13.10 4.2.7.2.686 [id number] [facility] 2019-06-07 00:00:00 2019-06-07 00:00:00 Orders Only Doctor Unassigned, [facility] 1.2840.114 350.1.13.10 4.2.7.2.686 [id number] [facility] 2019-05-14 14:40:44 2019-05-14 15:42:51 Office Visit Hakeem Walker [facility] 1.20.114 350.1.13.10 4.2.7.2.686 [id number] [facility] 2019-05-14 15:00:00 2019-05-14 15:00:00 Outpatient R HAKEEM WALEKR [facility] [id number] [facility] 2019-05-14 00:00:00 2019-05-14 00:00:00 Orders Only Doctor Unassigned, [facility] 1.20.114 350.1.13.10 4.2.7.2.686 [id number] [facility] 2019-05-01 00:00:00 2019-05-01 00:00:00 Orders Only Doctor Unassigned, [facility] 1.2840.114 350.1.13.10 4.2.7.2.686 [id number] [facility] Results Test Description Test Time Test Comments Results Result Co mments [facility] [id number] 15:55:00 * Test Item Value Reference Range [...] = ?0 ml. [facility] [id number] 15:55:00 * Test Item Value Reference Range [...] = ?0 ml. Results reported to provider. [facility], [id number] 15:55:00 * Test Item Value Reference Range [...] = ?0 ml. Results reported to provider. [facility] Urinalysis, [id number] 15:55:00 * Test Item Value Reference Range [...] = ?0 ml. Results reported to provider. [facility], [id number] 15:55:00 * Test Item Value Reference Range [...] = ?0 ml. Results reported to provider. [facility],POST-VOID RES,US,[id number] 00:00:00* Test Item Value Reference Range Interpretation Comme nts PVR (URINE VOLUME) (test code = 5193) 0 ml 0-100 [facility],POST-VOID RES,US,[id number] 00:00:00* Test Item Value Reference Range Interpretation Comme nts PVR (URINE VOLUME) (test code = 5193) 0 ml 0-100 [facility],POST-VOID RES,US,[id number] 00:00:00* Test Item Value Reference Range Interpretation Comme nts PVR (URINE VOLUME) (test code = 5193) 0 ml 0-100 [facility],POST-VOID RES,US,[id number] 00:00:00* Test Item Value Reference Range Interpretation Comme nts PVR (URINE VOLUME) (test code = 5193) 0 ml 0-100 [facility],POST-VOID RES,US,[id number] 00:00:00* Test Item Value Reference Range Interpretation Comme nts PVR (URINE VOLUME) (test code = 5193) 0 ml 0-100 [facility],POST-VOID RES,US,[id number] 00:00:00* Test Item Value Reference Range Interpretation Comme nts PVR (URINE VOLUME) (test code = 5193) 0 ml 0-100 [facility] LUMBAR SPINE W WO [id number] 19:39:34HISTORY: Chronic back pain. History of prior lumbar surgery.. TECHNIQUE: Sagittal T2 FRFSE, T1, STIR and axial T2 FRFSE T1 studies oflumbar spines are obtained. Additional coronal T2 FRFSE study is alsoobtained. Contrast enhanced fat sat sagittal and axial T1 studies were repeated afterintravenous injection of 13 mL of MultiHance. FINDINGS: [facility] No aggressive lesions of the [...] encroachment is not significant. L3-L4: Hardware into [id number] to be in good position. No hardware- [...] noted of intrathecal portion of the right [id number] root. [facility], Radiant Results Inft User - [...] noted of intrathecal portion of the right [id number] root.[facility] Notes Upcoming Encounters Date/Time Note Provider Source [...] on patient's age to complete this topic [facility] 08:30[facility]33 [facility]xjfwae3671[facility]14-23 08:30:13 LEFT VM.. [place] Rwskprv4778-08-07 10:44:58Upcoming Encounters Health Maintenance Due Date Last [...] on patient's age to complete this topic [facility] HospitalUokrwsk1154-72-59 10:44:58 [facility]Gubpdgq3870-46-63 10:44:34 LEFT VM.. MECHANICS TEACHER Socorro [place] Lwiuqyw8412-82-95 10:57:27Upcoming Encounters Health Maintenance Due Date Last [...] on patient's age to complete this topic [facility] HospitalYtmpxpw9916-92-43 10:57:27 [facility] HospitalIodzlfp3737-23-10 10:57:08 FIRST ATTEMPT LEFT VM [place]2024-12-13 18:35:46* Imaging (Routine) - Pending Review Specialty Diagnoses / Procedures Referred By Contflora t Referred To Contact Radiology Diagnoses MCI (mild cognitive impairment) with memory loss Cerebrovascular accident (CVA) due to occlusion of right posterior cerebral artery (HCC) Procedures MRI brain wo IV contrast Angelito Acosta MD [address] [place] [address] Phone: tel: fax: Referral ID Status Reason Start Date Expiration Date V isits Requested Visits Authorized [id number] Pending Review 02/23/2024 08/21/2024 1 1 MECHANICS TEACHER [facility] HospitalClwedue2826-80-44 18:35:46* [facility] HospitalQfwpbbs2443-06-10 18:35:46* Angelito Acosta MD - 02/23/2024 2:15 PM AUTO MECHANICS TEACHER Phillip Aguilar is a 78 y.o. female presenting with memory loss. History of Present Illness Memory Loss TremorFall Had a [employer] stroke in 01/02, vision loss on the [...] by mouth 1 time each day. HYDROcodone-acetaminophen ([place]) 10-325 MG tablet Take 1 tablet by [...] and symmetric in all four extremities. Coordination Ruwegd-ua-yviy, rapid alternating movements and ykdl-yi-jygv normal bilaterally without dysmetria. Gait Ambulates with [...] that study as well as additional labs. [facility]2024-12-13 18:35:46Upcoming Encounters Scheduled Orders Name Type Priority [...] on patient's age to complete this topic [facility] HospitalVpqkqqh2231-53-93 18:35:46 Diagnosis MCI (mild cognitive impairment) with memory loss - Primary Mild cognitive impairment, so stated Cerebrovascular accident (CV A) due to occlusion of right posterior cerebral artery (HCC) [facility] HospitalLmrqpip5232-35-53 18:35:46 [place] [address]-03-06 13:08:01 Name and verified. Pt stated that she has burning and frequency that started today. Has been taking AZO but it is not helping. Advised her that I will send a lab order to [facility] for a UC. Verbalized understanding. AZRA TOMLINSON RN 05/17/2023 1:08 PM MECHANICS TEACHER Azra Tomlinson [facility] CitySihfiu2135-82-03 10:33:24 Patient is calling is having burning and can barely urinate this started today. MECHANICS TEACHER Annie GarciaZanesville City HospitalVemmla9341-33-93 16:03:18 Patient was called, no answer. LVM stating labs have been reviewed by provider and treatment has been sent to pharmacy. Left call back number for any questions. MECHANICS TEACHER Sakina Navarro MAZanesville City HospitalUhvsxb3955-65-48 15:27:50 Patient says she had ua done last week and want to go over results. MECHANICS TEACHER Annie GarciaZanesville City HospitalPriwwr5195-28-32 08:19:50 Images from the original note were not included. Azra Tomlinson RN 04/17/2023 4:54 PM AUTO MECHANICS TEACHER Back to Top Name and verified. Pt advised of results and plan of care as stated below per provider. Pt verbalized understanding. Straight cath needed per Dr. Cadena. Appt made. AZRA TOMLINSON RN 04/17/2023 4:53 PM MECHANICS TEACHER Evin Juan RNZanesville City HospitalKtxomt2746-53-67 16:43:26 Astrid Aguilar is a 77 year old female Pt returning missed call to go over results. MECHANICS TEACHER Yulissa MaeZanesville City HospitalJqiwas7709-71-44 15:30:32 Attempted to contact patient. No answer, VM left. Evin Juan RN 04/17/2023 3:[address] [facility]2024-02-05 14:52:00 Pt says she calling back to get UA results and says she has some issues with holding liquid says she needs to get her infusion so want to discuss ua results. GarciaZanesville City HospitalIduttb6212-01-21 16:15:49 Returned patients call. Patient advised that her urine results are not complete at this time. Patient verbalized understanding. Evin Juan RN 04/12/2023 4:17 PM Juan [facility] CityFevwos3133-97-04 16:04:57 Pt says she dropped off ua yesterday is wanting to know if results are in says she having some discomfort. GarciaZanesville City HospitalZgriko8779-38-05 11:08:16 Spoke with patient. 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 Patient states she needs a clear urine culture to receive RA infusion. Patient unable to make it to [place] to go to lab. Patient requesting order to be sen to [facility]. Order sent via [facility] online portal. Evin Juan RN 04/11/2023 11:10 AM Juan [facility] CityCvszdx8894-66-93 10:55:44 Attempted to contact patient. Unable to hear patient. Will try again. Evin Juan RN 04/11/2023 10:[address] [facility]2024-01-30 09:17:38 Pt calling back need to discuss ua results. 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 [place] [id number] 11:06:27 Name and verified. Pt stated that she is not able to urinate. "Drops" since 0230 this morning. Pain and feel full. Pain with urination. Instructed pt to go to ER to be evaluated. Verbalized understanding. AZRA TOMLINSON RN 04/06/2023 11:17 AM [facility] Azra Tomlinson [place] [id number] 10:46:24 Patient is calling to follow up and is requesting a call back. [facility] Tabitha HullSamantha [place] 865194-01-25 09:29:02 Patient is returning call. [place] [id number] 09:11:33 Patient states she finished antibiotic 2 days ago. She states she is having frequency, doesn't go much when she goes and it [place]. She is requesting a call back. [place] [id number] 11:45:52 Images from the original note were not included. Contacted patient regarding results and recommendations. 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 Please contact pt with results Bactrim DS sent to pharmacy on file Thank you Patient verbalized understanding. Juan [facility] CityPusrye6342-49-69 11:35:56 Pt says she was waiting to hear back about ua results and medication want to discuss. GarciaZanesville City HospitalPolzmg4210-53-43 10:00:00 Addended by: TAYLA CADENA MD on: 03/28/2023 01:35 PM Modules accepted: Orders [facility]
[2024-07-12] MEDS ORDERED: KETOROLAC 30 MG/ML INJ ONE (18:58)
[2024-07-12] MEDS ORDERED: NA CHLORIDE 0.9% 500 ML ONE (18:59)
[2024-07-12 19:08] LABS: Absolute Basophils 0.1 K/uL (0-0.5); Absolute Eosinophils 0.1 K/uL (0-0.5); Absolute Lymphocytes (CBC) 1.3 K/uL (0.7-4.9); Absolute Monocytes 0.7 K/uL (0.1-1.3); Absolute Neutrophil 9.1 K/uL (1.8-8.0); Basophils % 0.6 % (0-1.3); Eosinophils % 0.6 % (0-4.4); Hematocrit 31.6 % (36.0-45.0); Hemoglobin 10.4 g/dL (12.0-15.0); Lymphocytes % 11.6 % (15.3-44.8); MCH 26.3 pg (27.0-35.0); MCHC 32.9 g/dL (32.0-36.0); MCV 79.8 fL (80-100); MPV 7.8 fL (7.6-11.3); Monocytes % 6.5 % (3.3-12.3); Neutrophils % 80.7 % (41.7-73.7); Nucleated Red Blood Cells % 0.1 % (0-0); Platelets 361 thou/uL (152-406); RBC Red Blood Cell Count 3.96 M/uL (3.86-4.86); Red Cell Distribution Width 17.3 % (12.1-15.2)
[2024-07-12 19:31] LABS: Albumin/Globulin Ratio 0.8 (1.1-1.8); Anion Gap 9.9 mEq/L (5.0-15.0); Bilirubin Total 0.6 mg/dL (0.2-1.0); Potassium 2.9 mEq/L (3.5-5.1)
--- NOTE | 2024-07-12 21:02 | RAD REPORT ---
EXAMINATION: CT ABDOMEN AND PELVIS WITH AND WITHOUT CONTRAST CLINICAL INDICATION: Abdominal pain TECHNIQUE: CT abdomen and pelvis was performed before and after the administration of 100 cc Isovue-3 00 IV contrast as per department protocol. 100 cc Isovue 300 administered intravenously. Axial, sagittal and coronal reconstructions were obtained. One or more of the following dose reduction techn iques were used: Automated exposure control, adjustment of the mA and/or kV according to patient size, and/or iterative reconstruction. Unless otherwise specified, incidental findings do not require dedicated imaging follow-up. [id number]. COMPARISON: No prior exam. FINDINGS: Cholecystectomy. Liver, spleen, pancreas and adrenals unremarkable Areas of cortical thinning within the kidneys perhaps secondary to prior inflammation Renal arterial calcifications. Postsurgical changes involve the lumbar spine. Old compression fracture L1 vertebral body. 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 Moderate stenosis renal arteries. Hysterectomy. No adnexal mass. The appendix not clearly seen. No inflammatory changes involving the cecum. Cecum is mildly distended with stool. Moderate amount of stools present within the right colon. IMPRESSION: Moderate amount of stool within the right colon.
[2024-07-12 22:34] LABS: Specific Gravity 1.021 (1.005-1.030); Urine Bilirubin NEGATIVE (Negative); Urine Blood Negative (Negative); Urine Clarity Clear (Clear); Urine Color Light-Yellow (Yellow); Urine Glucose NEGATIVE (Negative); Urine Ketones NEGATIVE (Negative); Urine Microscopic Reflex YN NO UMIC; Urine Nitrite NEGATIVE (Negative); Urine Protein NEGATIVE (Negative); Urine Urobilinogen Normal (Normal); Urine pH 6.5 (5.0-7.0)
[2024-07-12] MEDS ORDERED: NA CHLORIDE 0.9% 250 ML ONE (23:32)
[2024-07-12] MEDS ORDERED: KCL 20 MEQ/100 mL IVPB 100 ML IV ONE (23:32)
--- NOTE | 2024-07-13 00:50 | ER ---
Nurse's Notes [facility] Name: Astrid Cash Age: 79 yrs Sex: Female : 1945 Arrival Date: 07/12/2024 Time: 18:01 Bed 20 Private MD: Diagnosis: Hypokalemia;Abdominal pain, unspecified;Dorsalgia, unspecified Presentation: 07/12 18:27 Chief complaint: EMS states: toned out to patient's home for RLQ abdominal pain that cm10 has been intermittent for the last 2 weeks. Coronavirus screen: Client denies travel out of the [place] in the last 14 days. Ebola Screen: Patient denies travel to an Ebola-affected area in the 21 days before illness onset. Initial Sepsis Screen: Does the patient meet any 2 criteria? HR > 90 bpm. Does the patient have a suspected source of infection? No. Patient's initial sepsis screen is negative. Risk Assessment: Do you want to hurt yourself or someone else? Patient reports no desire to harm self or others. Onset of symptoms was July 12, 2024. Care prior to arrival: Medication(s) given: Tylenol, 1000 mg, IV initiated. 20 GA, in the right antecubital area, Glucose check: 248. 18:27 Method Of Arrival: EMS: [facility] cm10 18:27 Acuity: CALIX[place] 3 cm10 Triage Assessment: 18:32 General: Appears in no apparent distress. uncomfortable, Behavior is calm, cooperative. cm10 Pain: Complains of pain in right lower quadrant. Neuro: No deficits noted. Level of Consciousness is awake, alert, obeys commands, Oriented to person, place, time, situation, Appropriate for age. Respiratory: No deficits noted. Airway is patent Respiratory effort is even, unlabored, Respiratory pattern is regular, symmetrical. GI: Reports lower abdominal pain. Historical: - Allergies: 18:31 Sulfa (Sulfonamide Antibiotics); cm10 - PMHx: 18:31 Anxiety; Chronic pain; Depression; Hypertension; Rheumatoid Arthritis; cm10 - PSHx: 18:31 back surgery; Cholecystectomy; ; hysterectomy; neck surgery; cm10 - Immunization history:: Adult Immunizations up to date. - Infectious Disease History:: Denies. - Social history:: Smoking status: Patient denies any tobacco usage or history of. Screenin/03 00:[address] [facility] ED Fall Risk Assessment (Adult) History of falling in the last 3 months, lg3 including since admission No falls in past 3 months (0 pts) Confusion or Disorientation No (0 pts) Intoxicated or Sedated No (0 pts) Impaired Gait Yes (1 pt) Mobility Assist Device Used Yes (1 pt) Altered Elimination No (0 pt) Score/Fall Risk Level 0 - 2 = Low Risk Oriented to surroundings, Maintained a safe environment, Educated pt \T\ family on fall prevention, incl call for assistance when getting out of bed, Assessed \T\ reinforced patient's understanding of fall precautions. Abuse screen: Denies threats or abuse. Denies injuries from another. Nutritional screening: No deficits noted. Tuberculosis screening: No symptoms or risk factors identified. Assessment: 07/12 18:33 Reassessment: See triage assessment. cm10 07/13 00:40 General: Appears in no apparent distress. comfortable, Behavior is calm, cooperative. lg3 Pain: Complains of pain in back Pain currently is 3 out of 10 on a pain scale. Noted to be sleeping. Neuro: No deficits noted. Sanchez Agitation-Sedation Scale (RASS): -1 Drowsy Level of Consciousness is alert, obeys commands, Oriented to person, place, time, situation. Cardiovascular: No deficits noted. Denies chest pain, shortness of breath, Capillary refill < 3 seconds Clubbing of nail beds is absent JVD is absent Patient's skin is warm and dry. Respiratory: No deficits noted. Airway is patent Respiratory effort is even, unlabored, Respiratory pattern is regular, symmetrical. GI: No deficits noted. Abdomen is round non-distended, Bowel sounds present X 4 quads. Abd is soft and non tender X 4 quads. Reports lower abdominal pain. : No signs and/or symptoms were reported regarding the genitourinary system. EENT: No deficits noted. No signs and/or symptoms were reported regarding the EENT system. Derm: No deficits noted. No signs and/or symptoms reported regarding the dermatologic system. Skin is intact, is thin, Skin is dry, Skin is normal, Skin temperature is warm. Musculoskeletal: Circulation, motion, and sensation intact. Range of motion: intact in all extremities, Reports pain in back. 01:11 Reassessment: Patient appears in no apparent distress at this time. No changes from lg3 previously documented assessment. Patient and/or family updated on plan of care and expected duration. Pain level reassessed. Patient is alert, oriented x 3, equal unlabored respirations, skin warm/dry/pink. Vital Signs: 07/12 18:27 BP 126 / 89; Pulse 106; Resp 18; Temp 98(O); Pulse Ox 96% on R/A; Weight 58.06 kg; Pain cm10 12/20; 07/13 00:40 BP 130 / 75; Pulse 100; Resp 16 S; Pulse Ox 97% on R/A; lg3 01:11 BP 134 / 84; Pulse 97; Resp 17 S; Pulse Ox 97% on R/A; lg3 07/12 18:27 Pain Scale: Adult cm10 ED Course: 07/12 18:22 Patient arrived in ED. eb 18:22 Davida Molina MD is Attending Physician. gb1 18:26 Nando Mcguire PA is PHCP. cp 18:31 Triage completed. cm10 18:31 SANDRA GARCIA, RN is Primary Nurse. dd2 18:33 Arm band placed on right wrist. Patient placed in an exam room, on a stretcher. cm10 18:33 Maintain EMS IV. Dressing intact. Good blood return noted. Site clean \T\ dry. Gauge \T\ cm 10 site: 20g right ac. Flushed with 10 mL NS. 19:10 No provider procedures requiring assistance completed. Initial lab(s) drawn, by me, dd2 sent to lab. Patient maintains SpO2 saturation greater than 95% on room air. 20:37 CT Abd/Pelvis- W/WO Contrast In Process Unspecified. EDMS 07/13 00:19 Je Trent MD is Attending Physician. cp 00:40 Patient has correct armband on for positive identification. Bed in low position. Call lg3 light in reach. Side rails up X 1. Client placed on continuous cardiac and pulse oximetry monitoring. NIBP monitoring applied. Door closed. Noise minimized. Warm blanket given. Pillow given. Family accompanied patient. 01:35 IV discontinued, intact, bleeding controlled, No redness/swelling at site. Pressure lg3 dressing applied. Administered Medications: 07/12 19:10 Drug: NS 0.9% IV 500 ml 500 ml IV at 1 bolus once; to be given as a bolus over 60 dd2 minutes Volume: 500 ml; Route: IV; Rate: 1 bolus; Site: right antecubital; 07/13 01:12 Follow up: Response: No adverse reaction; IV Status: Completed infusion; IV Intake: lg3 500ml 07/12 19:10 Drug: Ketorolac IVP 10 mg 10 mg IVP once Route: IVP; Site: right antecubital; dd2 07/13 01:12 Follow up: Response: No adverse reaction; Marked relief of symptoms lg3 07/12 23:18 Not Given (Other Intervention Used): potassiumeffervescent tablet 50 meq PO once; dd2 dissolve in 4 ounces of water or juice 23:18 Not Given (Other Intervention Used): potassiumeffervescent tablet 25 meq PO once; dd2 dissolve in 4 ounces of water or juice 23:40 Drug: Potassium Chloride IV 20 mEq IV at calculated rate once; administer over 1-2 dd2 hours Route: IV; Rate: calculated rate; Site: right antecubital; 07/13 01:12 Follow up: Response: No adverse reaction; IV Status: Completed infusion; IV Intake: lg3 100ml Medication: 00:40 VIS not applicable for this client. lg3 Intake: 01:12 IV: 100ml; Total: 100ml. lg3 01:12 IV: 500ml; Total: 600ml. lg3 Outcome: 00:49 Discharge ordered by . 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 Demonstrated understanding of instructions, follow-up care, 01:35 Patient left the ED. lg3 Signatures: Dispatcher [employer] EDMS Nando Mcguire PA PA cp Botello, Elizabeth eb Able, Lacie, RN RN lg3 Yoly Andrew RN RN cm10 Davida Molina MD MD gb1 SANDRA GARCIA RN RN dd2
--- NOTE | 2024-07-13 00:50 | EDPHYS ---
Physician Documentation [facility] Name: Astrid Cash Age: 79 yrs Sex: Female : 1945 Arrival Date: 07/12/2024 Time: 18:01 Bed 20 Private MD: ED Physician Je Trent HPI: 07/12 18:30 This 79 yrs old Female presents to ER via EMS with complaints of Abdominal cp Pain. 18:30 The patient complains of pain in the right flank. cp 18:30 The pain radiates to the right mid back and right side lower abdomen. cp 18:30 Onset: The symptoms/episode began/occurred 2 week(s) ago. cp 18:30 Associated signs and symptoms: Pertinent positives: nausea, Pertinent negatives: cp dysuria, fever, pain radiating to the lower extremities, active vomiting. Severity of pain: in the emergency department the pain is unchanged despite EMS interventions. Historical: - Allergies: 18:31 Sulfa (Sulfonamide Antibiotics); cm10 - PMHx: 18:31 Anxiety; Chronic pain; Depression; Hypertension; Rheumatoid Arthritis; cm10 - PSHx: 18:31 back surgery; Cholecystectomy; ; hysterectomy; neck surgery; cm10 - Immunization history:: Adult Immunizations up to date. - Infectious Disease History:: Denies. - Social history:: Smoking status: Patient denies any tobacco usage or history of. ROS: 18:35 Constitutional: Negative for body aches, chills, fever, cp 18:35 Eyes: Negative for injury, pain, redness, and discharge, cp 18:35 ENT: Negative for drainage from ear(s), ear pain, sore throat, difficulty swallowing, difficulty handling secretions, 18:35 Cardiovascular: Negative for chest pain, palpitations, 18:35 Respiratory: Negative for cough, shortness of breath, wheezing, 18:35 Abdomen/GI: Positive for abdominal pain, nausea, 18:35 Back: Positive for flank pain, on the right, right mid back pain, 18:35 Neuro: Negative for altered mental status, dizziness, headache, weakness, 18:35 All other systems are negative, Exam: 18:40 Constitutional: The patient appears in no acute distress, alert, awake, cp non-diaphoretic, non-toxic, well developed, well nourished, uncomfortable, 18:40 Head/Face: Normocephalic, atraumatic. cp 18:40 Eyes: Periorbital structures: appear normal, Conjunctiva: normal, no exudate, no injection, Sclera: no appreciated abnormality, Lids and lashes: appear normal, bilaterally, 18:40 ENT: External ear(s): are unremarkable, Nose: is normal, Mouth: Lips: dry, Oral mucosa: moist, Posterior pharynx: Airway: no evidence of obstruction, patent, 18:40 Chest/axilla: Inspection: normal, 18:40 Cardiovascular: Rate: tachycardic, Rhythm: regular, 18:40 Respiratory: the patient does not display signs of respiratory distress, Respirations: normal, no use of accessory muscles, no retractions, labored breathing, is not present, Breath sounds: are clear throughout, no decreased breath sounds, no stridor, no wheezing, 18:40 Abdomen/GI: Inspection: abdomen appears normal, Bowel sounds: active, all quadrants, Palpation: soft, in all quadrants, moderate abdominal tenderness, in the posterior aspect of right lateral abdomen, anterior aspect of right lateral abdomen and right lower quadrant, rebound tenderness, is not appreciated, involuntary guarding, is not appreciated, 18:40 Back: pain, that is moderate, of the right mid back, ROM is painful, with all movement, 18:40 Skin: cellulitis, is not appreciated, no rash present. Vital Signs: 18:27 BP 126 / 89; Pulse 106; Resp 18; Temp 98(O); Pulse Ox 96% on R/A; Weight 58.06 kg; Pain cm10 12/20; 07/13 00:40 BP 130 / 75; Pulse 100; Resp 16 S; Pulse Ox 97% on R/A; lg3 01:11 BP 134 / 84; Pulse 97; Resp 17 S; Pulse Ox 97% on R/A; lg3 07/12 18:27 Pain Scale: Adult cm10 MDM: 07/12 18:22 Medical Screening Exam initiated gb1 07/13 00:48 Data reviewed: vital signs, nurses notes, lab test result(s), radiologic studies, CT cp scan, and as a result, I will discharge patient. 00:48 I considered the following discharge prescriptions or medication management in the emergency department Medications were administered in the Emergency Department. See MAR. Counseling: I had a detailed discussion with the patient and/or guardian regarding the historical points, exam findings, and any diagnostic results supporting the discharge/admit diagnosis, lab results, radiology results, to return to the emergency department if symptoms worsen or persist or if there are any questions or concerns that arise at home. Response to treatment: the patient's symptoms have markedly improved after treatment, and as a result, I will discharge patient. Special discussion: Based on the patient's Hx, exam, and Dx evaluation, there is no indication for emergent surgery or inpatient Tx. It is understood by the patient/guardian that if the Sx's persist or worsen they need to return immediately for re-evaluation. 07/12 18:28 Order name: CBC with Diff; Complete Time: 19:17 cp 07/12 18:28 Order name: CMP; Complete Time: 22:34 cp 07/12 18:28 Order name: Lipase; Complete Time: 22:34 cp 07/12 18:28 Order name: UA Rfx Vladimir Cult if indicated; Complete Time: 00:50 cp 07/13 00:50 Interpretation: Reviewed. cp 07/12 18:28 Order name: Lactate w/ 2H reflex if indic.; Complete Time: 22:34 cp 07/12 19:20 Order name: CT Abd/Pelvis- W/WO Contrast; Complete Time: 22:34 cp 07/12 18:28 Order name: IV Saline Lock; Complete Time: 19:10 cp 07/12 18:28 Order name: Labs collected and sent; Complete Time: 19:10 cp Administered Medications: 07/12 19:10 Drug: NS 0.9% IV 500 ml 500 ml IV at 1 bolus once; to be given as a bolus over 60 dd2 minutes Volume: 500 ml; Route: IV; Rate: 1 bolus; Site: right antecubital; 07/13 01:12 Follow up: Response: No adverse reaction; IV Status: Completed infusion; IV Intake: lg3 500ml 07/12 19:10 Drug: Ketorolac IVP 10 mg 10 mg IVP once Route: IVP; Site: right antecubital; dd2 07/13 01:12 Follow up: Response: No adverse reaction; Marked relief of symptoms lg3 07/12 23:18 Not Given (Other Intervention Used): potassiumeffervescent tablet 50 meq PO once; dd2 dissolve in 4 ounces of water or juice 23:18 Not Given (Other Intervention Used): potassiumeffervescent tablet 25 meq PO once; dd2 dissolve in 4 ounces of water or juice 23:40 Drug: Potassium Chloride IV 20 mEq IV at calculated rate once; administer over 1-2 dd2 hours Route: IV; Rate: calculated rate; Site: right antecubital; 07/13 01:12 Follow up: Response: No adverse reaction; IV Status: Completed infusion; IV Intake: lg3 100ml Disposition Summary: 07/13/24 00:49 Discharge Ordered Notes: Location: Home cp Problem: new cp Symptoms: have improved cp Condition: Stable cp Diagnosis - Hypokalemia cp - Abdominal pain, unspecified cp - Dorsalgia, unspecified cp Followup: cp - With: Private Physician - When: 2 - 3 days - Reason: Recheck today's complaints Discharge Instructions: - Discharge Summary Sheet cp - Abdominal Pain, Adult cp - Acute Back Pain, Adult cp - Potassium Content of Foods cp - Nausea, Adult cp Forms: - Medication Reconciliation Form cp - Antibiotic Education cp - Prescription Opioid Use cp - Patient Portal Instructions cp - Leadership Thank You Letter cp Signatures: Dispatcher [employer] EDMS Nando Mcguire PA PA cp Yoly Andrew RN RN cm10 Davida Molina MD MD gb1 SANDRA GARCIA RN RN dd2 Evangelina Burger RN lg3 Corrections: (The following items were deleted from the chart) 07/12 18:28 18:28 CBC+H.LAB.BRZ ordered. EDMS EDMS 18:28 18:28 COMPREHENSIVE METABOLIC PANEL+C.LAB.BRZ ordered. EDMS EDMS 18:28 18:28 LIPASE+C.LAB.BRZ ordered. EDMS EDMS 18:28 18:28 UA Rfx Vladimir Cult if indicated+U.LAB.BRZ ordered. EDMS EDMS 07/14 00:24 07/12 18:30 The pain radiates to the right mid back and right side abdomen, cp cp
[2024-07-13 02:52] VITALS: TEMP 98
[2024-07-13 02:54] VITALS: O2SAT 97
[2024-07-13 02:55] VITALS: BP 134/84
== END 2024-07-13 01:35 | disposition home or self-care (01) ==
LOC: ER 18:01
DX: E87.6 Hypokalemia (principal); R10.31 Right lower quadrant pain; M54.9 Dorsalgia, unspecified
CPT/HCPCS: 96365; 96361; 85025; 36415; 83605; 81003; 83690; 80053; 74178; 96375; 99284; 96366; Q9967; J3480; J7050; J7040

== ENCOUNTER 2024-12-05 08:07 | Emergency (ER) | payer OTHER ==
--- OUTSIDE RECORDS SUMMARY | 2024-12-05 08:13 | XMS REPORT | Continuity of Care Document ---
Author Name Unknown Address [address] [facility] [place] [address] [facility] [address] [facility] [place] [address] Care Team Providers Care Site Director Name Role Phone Phan Mariluz SWARTZ Primary Care Physician + [phone] ANGELITO ACOSTA Attending Clinician Unavail able Dia Mei MA Attending Clinician Unavailab Solomon DIETRICH, Angelito Stone Attending Clinician [phone] BRITTANY HERRERA Attending Clinician UnavailBrittany Ann MD Attending Clinician [phone] Tayla Cadena MD Attending Clinician [phone] TAYLA CADENA Attending Clinician Unavailable Nurse, [facility] Attending Clinician Unavailable Doctor Unassigned, Volo Attending Clinician U Hakeem Samuel MD Attending Clinician [phone] HAKEEM WALKER Attending Clinician Unavail able HAKEEM WALKER Attending Clinician Unavail able HAKEEM WALKER Admitting Clinician Unavail able Payers Payer Name Policy Type Policy Number Effective Date Expirati on Date Source [employer] MED[employer]ARE [employer]VANTAGE Medicare [id number] 2023 00:00:00 Problems Condition Name Condition Details Condition Category Status Onset Date Resolution Date Last Treatment Date Treating Clinician Comments Source Dementia Dementia Disease Active 07-26 00:00: 00 Jori Perez Cerebrovas cular accident (CVA) due to occlusion of right posterior cerebral artery Cerebrovas cular accident (CVA) due to occlusion of right posterior cerebral artery Disease Active 2023-03 00:00: 00 Jori Perez MCI (mild cognitive impairment ) with memory loss MCI (mild cognitive impairment ) with memory loss Disease Active 2023-03 00:00: 00 Jori Perez Acute cystitis without [...] Disease Active 03-22 00:00: 00 Jori Perez Chronic low back pain Chronic low back pain Disease Active 2-27 00:00: 00 Jori Perez Lumbar radiculopa thy Lumbar radiculopa thy Disease Active 0 2-27 00:00: 00 Jori Perez Lumbar post-cj ectomy syndrome Lumbar post-cj ectomy syndrome Disease Active 2-26 00:00: 00 Jori Perez Pain Pain Disease Active 0 1-28 00:00: 00 Jori Perez Vitamin D insufficie ncy Vitamin D insufficie ncy Disease Active 2013-03 0- 00:00: 00 Jori Perez Long-term use of immunosupp ressant medication Long-term use of immunosupp ressant medication Disease Active 716 00:00: 00 Jori Perez Osteoarthr itis, multiple sites Osteoarthr itis, multiple sites Disease Active 3- 00:00: 00 Jori Perez Neuropathy of foot Neuropathy of foot Disease Active 2012-03 0 00:00: 00 Jori Perez Osteopenia Osteopenia Disease Active 2012-03 0 00:00: 00 Jori Perez Rheumatoid arthritis Rheumatoid arthritis Disease Active 2012-03 0 00:00: 00 Jori gould Whitman [facility] Allergies, Adverse Reactions, Alerts Allergy Name Allergy Type Status Severity Reaction(s) Onset Date Inactive Date Treating Clinician Comments Source NO KNOWN ALLERGIE S Drug Class Active [facility] Social History Social Habit Start Date Stop Date Quantity Comments Source Gender identity 2023-06-04 05:02:59 Identifies as female gender (finding) [facility] ASSERTION Possible [facility] Sexual orientation [facility] Exposure to SARS-CoV-2 (event) Not sure [facility] History SDOH Alcohol Std Drinks [facility] History SDOH Alcohol Binge [facility] Alcoholic beverage intake 2024-07-26 00:00:00 2024-07-26 00:00:00 Lifetime non-drinker (finding) [facility] History of Social function 2024-07-26 00:00:00 2024-07-26 00:00:00 [facility] Tobacco use and exposure 2024-02-23 00:00:00 2024-02-23 00:00:00 Smokeless tobacco non-user [facility] Alcohol intake 2019-05-14 00:00:00 2019-05-14 00:00:00 Ex-drinker (finding) [facility] History SDOH Alcohol Frequency 2019-05-14 00:00:00 2019-05-14 00:00:00 1 [facility] Sex Assigned At 1945 00:00:00 1945 00:00:00 [facility] Smoking Status Start Date Stop Date Source Never smoked tobacco Jori gould Ok [facility] Medications Ordered Medication Name Filled Medication Name Start Date Stop Date Current Medication? Ordering Clinician Indication Dosage Frequency Signature (SIG) Comments Components Source galantamine (Razadyne) 4 MG tablet galantamine (Razadyne) 4 MG tablet 07-26 00:00: 00 07-26 23:59 :00 No 4mg Q.5D Take 1 tablet by mouth in the morning and 1 tablet in the evening. Jori Euceda [facility] amLODIPine (Norvasc) tablet 5 mg amLODIPine (Norvasc) tablet 5 mg 07-19 19:20: 00 Yes 5mg 5 mg, Oral, Once, On Mon07/19/24 at 1920, For 1 dose Jori Perez tiZANidine (Zanaflex) tablet 2 mg tiZANidine (Zanaflex) tablet 2 mg 07-19 18:55: 00 Yes 2mg 2 mg, Oral, Once, On Mon07/19/24 at 1855, For 1 dose Jori Perez sodium chloride 0.9 % bolus 250 mL sodium chloride 0.9 % bolus 250 mL 07-19 18:25: 00 07-19 19:02 :00 No 250mL 250 mL, Intravenou s, at 500 mL/hr, Administer over 30 Minutes, Once, On Mon07/19/24 at 1825, For 1 dose Jori Perez fentaNYL (Sublimaze) injection 25 mcg [id number] 5-09 18:05: 00 07-19 18:08 :00 No 25ug 25 mcg, Intravenou s, Once, On Mon07/19/24 at 1805, For 1 dose, If ordered IV, slowly push over 3-5 minutes. Jori Perez sodium chloride 0.9 % infusion - Pyxis Override Pull sodium chloride 0.9 % infusion - Pyxis Override Pull 07-19 17:56: 58 07-19 19:02 :00 No Starting on Mon07/19/24 at 1756, For 1 dose, Created by cabinet override Jori Perez iohexol (OMNIPaque) 350 MG/ML injection 65 mL iohexol (OMNIPaque) 350 MG/ML injection 65 mL 07-19 17:28: 28 07-19 17:28 :00 No 65mL 65 mL, Intravenou s, Once in imaging, Starting on Mon07/19/24 at 1728, For 1 dose Jori Perez potassium chloride IVPB 10 mEq potassium chloride IVPB 10 mEq 07-19 17:00: 00 07-19 19:02 :00 No 10meq 10 mEq, Intravenou s, at 100 mL/hr, Administer over 1 Hours, Once, On Mon07/19/24 at 1700, For 1 dose, Central-li ne infusion highly recommende d for infusions >10 mEq/hour Jori Perez Potassium chloride solution 40 mEq Potassium chloride solution 40 mEq 07-19 17:00: 00 07-19 17:53 :00 No 40meq 40 mEq, Oral, Once, On Mon07/19/24 at 1700, For 1 dose, Mix with 4 oz (120ml) of water prior to administra tion Jori Perez acetaminoph en (Tylenol) tablet 1,000 mg acetaminoph en (Tylenol) tablet 1,000 mg 07-19 16:15: 00 07-19 16:17 :00 No 1000mg 1,000 mg, Oral, Once, On Mon07/19/24 at 1615, For 1 dose, Max acetaminop hen = 4000mg/day (4gm/day) Jori Perez sodium chloride (NS) 0.9 % flush 10 mL sodium chloride (NS) 0.9 % flush 10 mL 07-19 16:12: 04 Yes 10mL [Order 1 Start] Name: Insert peripheral IV Signed Summary: Once, On Mon07/19/24 at 1613, For 1 occurrence [Order 1 End] [Order 2 Start] Name: Saline lock IV Signed Summary: Once, On Mon07/19/24 at 1613, For 1 occurrence [Order 2 End] [Order 3 Start] Name: sodium chloride (NS) 0.9 % flush 10 mL Signed Summary: 10 mL, Intravenou s, As needed, line care, Starting on Mon07/19/24 at 1612 [Order 3 End] Jori Perez nitrofurant oin (Macrodanti n) 100 MG capsule nitrofurant oin (Macrodanti n) 100 MG capsule 07-19 00:00: 00 Yes TAKE 1 CAPSULE BY MOUTH DAILY FOR UTI Jori Perez certolizuma b pegol (Cimzia) injection certolizuma b pegol (Cimzia) injection 2023-03 2-13 14:41: 06 Yes Jori Perez ascorbic acid (vitamin C) 500 MG tablet ascorbic acid (vitamin C) 500 MG tablet 2023-03 14:41: 06 Yes 500mg QD Take 500 mg by mouth 1 time each day. Jori Perez cholecalcif alejandro 50 MCG (1999) tablet cholecalcif alejandro 50 MCG (1999) tablet 2023-03 14:41: 06 Yes Take by mouth. Jori Perez multivitami n (DEKAs Plus) multivitami n (DEKAs Plus) 2023-03 14:41: 06 Yes 1{tbl} QD Chew 1 tablet 1 time each day. Jori Perez metoprolol succinate XL (Toprol-XL) 100 MG 24 [...] each day. Jori Perez HYDROcodone -acetaminop hen ([place]) 10-325 MG tablet HYDROcodone -acetaminop hen ([place]) 10-325 MG tablet 08-30 00:00: 00 Yes [...] -19 00:00: 00 05-07 05:59 :00 No [id number] 100mg Take 1 capsule by mouth in the morning and 1 capsule in the evening. Do all this for 5 days. [facility] sulfamethox azole-trime thoprim 800-160 mg per tablet 1-16 00:00: 00 04-05 05:59 :00 No [id number] 1{tbl} Take 1 tablet by mouth in the morning and 1 tablet in the evening. Do all this for 7 days. [facility] ZINC ACETATE ORAL 03-22 09:43: 29 Yes Take by mouth. [facility] vitamin C with juliana hips (VITAMIN C) 1,000 mg tablet 03-22 09:43: 29 Yes 1000mg Take 1 tablet by mouth in the morning. [facility] HYDROCODONE /ACETAMINOP HEN (NORCO ORAL) 03-22 09:42: 31 Yes 10mg Take 10-325 mg by mouth every 6 (six) hours as needed for Pain (scale 4-6) or Pain (scale 7-10). [facility] metoprolol succinate XL 100 mg 24 hr tablet 03-22 09:42: 31 Yes 100mg Take 1 tablet by mouth in the morning. [facility] PREDNISONE ORAL 03-22 09:42: 31 Yes 5mg Take 5 mg by mouth in the morning. [facility] GABAPENTIN ORAL 03-22 09:42: 31 Yes 600mg Take 600 mg by mouth in the morning and 600 mg at noon and 600 mg in the evening. [facility] MULTIVIT,CA ,MIN-D3-HER BAL #[id number] ORAL 03-22 09:42: 31 Yes 1{tbl} Take 1 tablet by mouth daily. [facility] foLIC acid 1 mg tablet 03-22 09:41: 34 03-22 00:00 :00 No 1mg Take 1 mg by mouth daily. [facility] duloxetine HCl (CYMBALTA ORAL) 03-22 09:41: 32 Yes 120mg Take 120 mg by mouth daily. [facility] aspirin 81 mg chewable tablet 03-22 09:41: 08 Yes 81mg Take 1 tablet by mouth in the morning. [facility] amLODIPine 5 mg tablet 03-22 09:41: 08 Yes 5mg Take 1 tablet by mouth in the morning. [facility] alendronate 35 mg tablet 03-22 09:41: 07 Yes 35mg Take 1 tablet by mouth weekly. Takes on Tuesdays [facility] estradioL (ESTRACE) 0.01 % (0.1 mg/gram) vaginal cream 03-22 00:00: 00 Yes [id number] Apply 1g vaginally at bedtime every night for 2 weeks and then apply 1g vaginally at bedtime 2 OR 3 times per week [facility] gadobenate dimeglumine (MULTIHANCE -20 mL) injection 0.2 mL/kg 07-31 19:30: 00 07-31 19:30 :00 No .2mL/kg 0.2 mL/kg, Intravenou s, ONCE, 1 dose, Wen 08/01/19 at 1430, Routine [facility] foLIC acid 1 mg tablet 04-10 15:42: 32 Yes 1mg Take 1 mg by mouth daily. [facility] GABAPENTIN ORAL 04-10 15:42: 32 Yes 900mg Take 900 mg by mouth 3 (three) times daily. [facility] MULTIVIT,CA ,MIN-D3-HER BAL #161 ORAL 04-10 15:42: 32 Yes 1{tbl} Take 1 tablet by mouth daily. [facility] alendronate 35 mg tablet 04-10 15:42: 32 Yes 35mg Take 35 mg by mouth weekly. Takes on Tuesdays [facility] PREDNISONE ORAL 04-10 15:42: 32 Yes 4mg Take 4 mg by mouth daily. [facility] HYDROCODONE /ACETAMINOP HEN (NORCO ORAL) 04-10 15:42: 32 Yes 10mg Take 10-325 mg by mouth every 6 (six) hours as needed for Pain (scale 4-6) or Pain (scale 7-10). [facility] aspirin 81 mg chewable tablet 04-10 15:42: 32 Yes 81mg Take 81 mg by mouth daily. [facility] amLODIPine 5 mg tablet 04-10 15:42: 32 Yes 5mg Take 5 mg by mouth daily. [facility] metoprolol succinate XL 100 mg 24 hr tablet 04-10 15:42: 32 Yes 100mg Take 100 mg by mouth daily. [facility] duloxetine HCl (CYMBALTA ORAL) 04-10 15:42: 32 Yes 120mg Take 120 mg by mouth daily. [facility] HYDROCODONE /ACETAMINOP HEN (NORCO ORAL) 04-10 09:42: 32 Yes 10mg Take 10-325 mg by mouth every 6 (six) hours as needed for Pain (scale 4-6) or Pain (scale 7-10). [facility] aspirin 81 mg chewable tablet 04-10 09:42: 32 Yes 81mg Take 81 mg by mouth daily. [facility] amLODIPine 5 mg tablet 04-10 09:42: 32 Yes 5mg Take 5 mg by mouth daily. [facility] metoprolol succinate XL 100 mg 24 hr tablet 04-10 09:42: 32 Yes 100mg Take 100 mg by mouth daily. [facility] foLIC acid 1 mg tablet 04-10 09:42: 32 Yes 1mg Take 1 mg by mouth daily. [facility] PREDNISONE ORAL 04-10 09:42: 32 Yes 4mg Take 4 mg by mouth daily. [facility] duloxetine HCl (CYMBALTA ORAL) 04-10 09:42: 32 Yes 120mg Take 120 mg by mouth daily. [facility] GABAPENTIN ORAL 04-10 09:42: 32 Yes 900mg Take 900 mg by mouth 3 (three) times daily. [facility] MULTIVIT,CA ,MIN-D3-HER BAL #161 ORAL 04-10 09:42: 32 Yes 1{tbl} Take 1 tablet by mouth daily. [facility] alendronate 35 mg tablet 04-10 09:42: 32 Yes 35mg Take 35 mg by mouth weekly. Takes on Tuesdays [facility] cyclobenzap rine 5 mg tablet 2016-03 00:00: 00 03-22 00:00 :00 No 5mg Take 1 tablet by mouth 3 (three) times daily. [facility] Immunizations Ordered Immunization Name Filled Immunization Name Date Status Comments Source Influenza High Dose 2023-05-17 00:00:00 Completed [facility] Influenza High Dose 2023-04-27 00:00:00 Completed [facility] Influenza High Dose 2023-04-18 14:00:00 Completed [facility] Influenza High Dose 2023-04-17 00:00:00 Completed [facility] Influenza High Dose 2023-04-12 00:00:00 Completed [facility] Influenza High Dose 2023-04-11 00:00:00 Completed [facility] Influenza High Dose 2023-04-10 00:00:00 Completed [facility] Influenza High Dose 2023-04-06 00:00:00 Completed [facility] Influenza High Dose 2023-04-03 00:00:00 Completed [facility] Influenza High Dose 2023-03-22 10:00:00 Completed [facility] Influenza High Dose 2023-03-16 00:00:00 Completed [facility] Influenza High Dose 2018-04-10 00:00:00 Completed [facility] Influenza High Dose 2018-04-10 00:00:00 Completed [facility] Influenza High Dose 2018-04-10 00:00:00 Completed [facility] Influenza High Dose 2018-04-10 00:00:00 Completed [facility] Influenza High Dose 2018-04-10 00:00:00 Completed [facility] Influenza High Dose 2018-04-10 00:00:00 Completed [facility] Influenza High Dose 2018-04-10 00:00:00 Completed [facility] Influenza High Dose 2018-04-10 00:00:00 Completed [facility] Vital Signs Vital Name Observation Time Observation Value Comments S ource Systolic blood pressure 2024-07-26 13:58:00 133 mm[Hg] [facility] Diastolic blood pressure 2024-07-26 13:58:00 100 mm[Hg] [facility] Heart rate 2024-07-26 13:58:00 109 /min [facility] Body temperature 2024-07-26 13:58:00 37.22 Jacquelin [facility] Respiratory rate 2024-07-26 13:58:00 16 /min [facility] Body height 2024-07-26 13:58:00 147.3 cm [facility] Body weight 2024-07-26 13:58:00 53.071 kg [facility] BMI 2024-07-26 13:58:00 24.45 kg/m2 [facility] Oxygen saturation in Arterial blood by Pulse oximetry 2024-07-26 13:58:00 96 /min [facility] Systolic blood pressure 2024-07-26 13:58:00 133 mm[Hg] [facility] Diastolic blood pressure 2024-07-26 13:58:00 100 mm[Hg] [facility] Heart rate 2024-07-26 13:58:00 109 /min [facility] Body temperature 2024-07-26 13:58:00 37.22 Jacquelin [facility] Respiratory rate 2024-07-26 13:58:00 16 /min [facility] Body height 2024-07-26 13:58:00 147.3 cm [facility] Body weight 2024-07-26 13:58:00 53.071 kg [facility] [place] [facility] BMI 2024-07-26 13:58:00 24.45 kg/m2 [facility] Oxygen saturation in Arterial blood by Pulse oximetry 2024-07-26 13:58:00 96 /min [facility] Systolic blood pressure 2024-07-19 20:22:00 136 mm[Hg] [facility] Diastolic blood pressure 2024-07-19 20:22:00 90 mm[Hg] [facility] Heart rate 2024-07-19 20:22:00 91 /min [facility] Respiratory rate 2024-07-19 20:22:00 15 /min [facility] Oxygen saturation in Arterial blood by Pulse oximetry 2024-07-19 20:22:00 94 /min [facility] Body temperature 2024-07-19 15:54:00 36.56 Jacquelin [facility] Body height 2024-07-19 15:54:00 167.6 cm [facility] Body weight 2024-07-19 15:54:00 55.339 kg [facility] BMI 2024-07-19 15:54:00 19.69 kg/m2 [facility] Systolic blood pressure 2024-07-19 20:22:00 136 mm[Hg] [facility] Diastolic blood pressure 2024-07-19 20:22:00 90 mm[Hg] [facility] Heart rate 2024-07-19 20:22:00 91 /min [facility] Respiratory rate 2024-07-19 20:22:00 15 /min [facility] Oxygen saturation in Arterial blood by Pulse oximetry 2024-07-19 20:22:00 94 /min [facility] Body temperature 2024-07-19 15:54:[address] [facility] Body height 2024-07-19 15:54:00 167.6 cm [facility] Body weight 2024-07-19 15:54:00 55.339 kg [facility] BMI 2024-07-19 15:54:00 19.69 kg/m2 [facility] Systolic blood pressure 2024-02-23 14:43:00 123 mm[Hg] [facility] Diastolic blood pressure 2024-02-23 14:43:00 101 mm[Hg] [facility] Heart rate 2024-02-23 14:43:00 71 /min [facility] Body temperature 2024-02-23 14:43:00 36.61 [facility] Respiratory rate 2024-02-23 14:43:00 16 /min [facility] Body height 2024-02-23 14:43:00 152.4 cm [facility] Body weight 2024-02-23 14:43:00 58.514 kg Blanco rial Ok [facility] BMI 2024-02-23 14:43:00 25.19 kg/m2 [facility] Systolic blood pressure 2024-02-23 14:43:00 123 mm[Hg] [facility] Diastolic blood pressure 2024-02-23 14:43:00 101 mm[Hg] [facility] Epic Heart rate 2024-02-23 14:43:00 71 /min [facility] Body temperature 2024-02-23 14:43:00 36.61 [facility] Epic Respiratory rate 2024-02-23 14:43:00 16 /min [facility] Body height 2024-02-23 14:43:00 152.4 cm [facility] Body weight 2024-02-23 14:43:00 58.514 kg [facility] BMI 2024-02-23 14:43:00 25.19 kg/m2 Blanco Euceda [facility] Systolic blood pressure 2023-03-22 15:38:00 130 mm[Hg] [facility] Diastolic blood pressure 2023-03-22 15:38:00 75 mm[Hg] [facility] Heart rate 2023-03-22 15:38:00 90 /min Un[facility] Body temperature 2023-03-22 15:38:00 36.83 Jacqueiln [facility] Respiratory rate 2023-03-22 15:38:00 18 /min [facility] Body height 2023-03-22 15:38:00 165.1 cm [facility] Body weight 2023-03-22 15:38:00 66.225 kg [facility] BMI 2023-03-22 15:38:00 24.30 kg/m2 [facility] Oxygen saturation in Arterial blood by Pulse oximetry 2023-03-22 15:38:00 97 /min [facility] Systolic blood pressure 2019-09-13 16:28:00 140 mm[Hg] [facility] Diastolic blood pressure 2019-09-13 16:28:00 80 mm[Hg] [facility] Heart rate 2019-09-13 16:28:00 73 /min [facility] Body temperature 2019-09-13 16:28:[address] [facility] Respiratory rate 2019-09-13 16:28:00 18 /min [facility] Body weight 2019-09-13 16:28:00 65.137 kg [facility] BMI 2019-09-13 16:28:00 23.90 kg/m2 [facility] Systolic blood pressure 2019-09-13 16:28:00 140 mm[Hg] [facility] Diastolic blood pressure 2019-09-13 16:28:00 80 mm[Hg] [facility] Heart rate 2019-09-13 16:28:00 73 /min [facility] Body temperature 2019-09-13 16:28:00 36.61 Jacquelin [facility] Respiratory rate 2019-09-13 16:28:00 18 /min [facility] Body weight 2019-09-13 16:28:00 65.137 kg [facility] BMI 2019-09-13 16:28:00 23.90 kg/m2 [facility] Systolic blood pressure 2019-05-14 21:03:00 139 mm[Hg] [facility] Diastolic blood pressure 2019-05-14 21:03:00 86 mm[Hg] [facility] Heart rate 2019-05-14 21:03:00 80 /min [facility] Body temperature 2019-05-14 21:03:00 36.5 Jacquelin [facility] Respiratory rate 2019-05-14 21:03:00 16 /min [facility] Body height 2019-05-14 21:03:00 165.1 cm [facility] Body weight 2019-05-14 21:03:00 65.772 kg [facility] BMI 2019-05-14 21:03:00 24.13 kg/m2 [facility] Procedures Procedure Date / Time Performed Performing Clinician Source MRI brain wo IV contrast 2024-07-26 00:00:[address] [facility] [address] ABDOMEN PELVIS W IV CONTRAST 2024-07-19 17:28:00 [facility] IF INDICATED 2024-07-19 16:15:00 [facility] 2024-07-19 [facility]:14[facility]24-[facility]-19 16:14:00 Nickie, [facility] BASIC METABOLIC PANEL 2024-07-19 16:14:00 Pankaj Fu [facility] HEPATIC FUNCTION PANEL 2024-07-19 16:14:00 Nickie, [facility] LIPASE LEVEL 2024-07-19 16:14:00 Juan Pablo Fu [facility] COMPLETE BLOOD COUNT W/DIFF AND PLATELET 2024-07-19 16:14:00 Nickie [facility] TROPONIN I HIGH SENSITIVITY (SINGLE ORDER) 2024-07-19 16:14:00 Campise, [facility] ECG 12 lead 2024-07-19 00:00:00 [facility] Beta-Amyloid 42/40 Ratio, Plasma 2024-02-23 00:00:00 [facility] MRI brain wo IV contrast 2024-02-23 00:00:00 [facility] Copper Level 2024-02-23 00:00:00 [facility] Vitamin B1 Level 2024-02-23 00:00:00 Blanco rial [facility] Vitamin B12 Level 2024-02-23 00:00:00 Mem orihair [facility] Zinc Level 2024-02-23 00:00:00 [facility] Sedimentation Rate 2024-02-23 00:00:00 [facility] C-Reactive Protein 2024-02-23 00:00:00 [facility] URINE CULTURE 2023-04-18 20:09:00 Tayla [facility] [facility] URINE CULTURE 2023-03-22 16:47:00 Tayla Cadena [facility] POCT URINALYSIS AUTO 2023-03-22 15:54:00 Odette Cadena [facility] CONNOR,POST-VOID RES,US,NON-IMAGING 2023-03-22 00:00:00 Tayla Cadena [facility] REFERRAL- REQUEST/RESPONSE 2023-03-16 06:01:00 Doctor Unassigned, Volo [facility] EXTERNAL PROVIDER RECORDS 2022-09-14 05:01:00 Do ctor Unassigned, Volo [facility] MR LUMBAR SPINE W WO CONTRAST 2019-08-01 19:22:35 Hakeem Walker [facility] INSURANCE CORRESPONDENCE 2019-06-07 05:01:00 Doc tor Unassigned, Volo [facility] ASSIGNMENT OF BENEFITS 2019-05-14 20:40:19 Docto r Unassigned, Volo [facility] EXTERNAL PROVIDER RECORDS 2019-05-01 06:01:00 Do ctor Unassigned, Volo [facility] REFERRAL- REQUEST/RESPONSE 2019-05-01 06:01:00 Doctor Unassigned, Volo [facility] Oxygen Therapy - Patient Type: Adult; Device: Nasal Cannula; SpO2 Goals (select one): General: > or equal to 92%; Follow Respiratory Pathway: Yes [facility] Plan of Care Planned Activity Planned Date Details Comments Source Encounters Start Date/Time End Date/Time Encounter Type Admission Type Attending [facility] Facility Care Department Encounter ID Source 2024-09-06 13:19:52 2024-09-06 13:44:10 Outpatient Elective [facility]IT[id number] [facility] 2024-07-26 00:00:00 2024-07-26 14:55:38 Telephone Dia Mei Arianna [place] 1.2.840.114 350.1.13.70 8.2.7.2.686 [id number] Jori gould [facility] 2024-07-26 13:45:00 2024-07-26 14:42:13 Office Visit Angelito Acosta 1.2.840.114 350.1.13.70 8.2.7.2.686 [id number] Jori [facility] 2024-07-26 13:34:52 2024-07-26 14:42:13 Outpatient Elective ANGELITO ACOSTA [facility] [id number] [facility] 2024-07-19 15:57:00 2024-07-19 20:35:00 Emergency Emergency BRITTANY HERRERA [facility] General Medicine [id number] [facility] 2024-07-19 15:57:00 2024-07-19 20:35:00 Emergency Brittany Herrera [facility] 1.2.840.114 350.1.13.70 8.2.7.2.686 [id number] [facility] 2024-03-21 00:00:00 2024-03-21 08:30:25 Telephone Angelito Acosta [facility] 1.2.840.114 350.1.13.70 8.2.7.2.686 [id number] [facility] 2024-03-19 00:00:00 2024-03-19 10:44:49 Telephone Angelito Acosta [facility] 1.2.840.114 350.1.13.70 8.2.7.2.686 [id number] Jori Euceda [facility] 2024-03-07 00:00:00 2024-03-07 10:57:17 Telephone Angelito Acosta [facility] 1.2.840.114 350.1.13.70 8.2.7.2.686 [id number] Jori gould [facility] 2024-02-23 14:25:41 2024-02-23 15:28:28 Outpatient Elective [facility] [id number] 2024-02-23 14:15:00 2024-02-23 15:28:28 Consult Angelito Acosta [facility] 1.2.840.114 350.1.13.70 8.2.7.2.686 [id number] Jori gould [facility] 2023-05-17 00:00:00 2023-05-17 00:00:00 Telephone Odette Cadenaha [facility] 1.2.840.114 350.1.13.10 4.2.7.2.686 [id number] [facility] 2023-04-27 00:00:00 2023-04-27 00:00:00 Telephone Odette Cadenaha [facility] 1.2.840.114 350.1.13.10 4.2.7.2.686 [id number] [facility] 2023-04-18 14:00:00 2023-04-18 16:55:22 Outpatient R TYALA CADENA [facility] [id number] [facility] 2023-04-18 14:00:00 2023-04-18 16:55:22 Nurse Visit Nurse, [facility] 1.2.840.114 350.1.13.10 4.2.7.2.686 [id number] [facility] 2023-04-17 00:00:00 2023-04-17 00:00:00 [facility] 1.2.840.114 350.1.13.10 4.2.7.2.686 [id number] [facility] 2023-04-12 00:00:00 2023-04-12 00:00:00 [facility] 1.2.840.114 350.1.13.10 4.2.7.2.686 [id number] [facility] 2023-04-11 00:00:00 2023-04-11 00:00:00 Orders Only [facility] 1.2.840.114 350.1.13.10 4.2.7.2.686 [id number] [facility] 2023-04-10 00:00:00 2023-04-10 00:00:00 Telephone Tayla Cadena [facility] BU[facility] 1.2.840.114 350.1.13.10 4.2.7.2.686 [id number] [facility] 2023-04-06 00:00:00 2023-04-06 00:00:00 [facility] 1.2.840.114 350.1.13.10 4.2.7.2.686 [id number] [facility] 2023-04-03 00:00:00 2023-04-03 00:00:00 [facility] 1.2.840.114 350.1.13.10 4.2.7.2.686 [id number] [facility] 2023-03-22 10:00:00 2023-03-22 10:48:43 Outpatient R TAYLA CADENA ELISHA [facility] [id number] [facility] 2023-03-22 10:00:00 2023-03-22 10:48:43 Office Visit Tayla Cadena [facility] 1.2.840.114 350.1.13.10 4.2.7.2.686 [id number] [facility] 2023-03-16 00:00:00 2023-03-16 00:00:00 Orders Only Doctor Unassigned, Volo [facility] 1.2.840.114 350.1.13.10 4.2.7.2.686 [id number] [facility] 2022-09-14 00:00:00 2022-09-14 00:00:00 Orders Only Doctor Unassigned, Volo [facility] 1.2.840.114 350.1.13.10 4.2.7.2.686 [id number] [facility] 2019-09-13 11:09:01 2019-09-13 13:29:16 Office Visit Hakeem Walker [facility] 1.2.840.114 350.1.13.10 4.2.7.2.686 [id number] [facility] 2019-09-13 11:09:01 2019-09-13 13:29:16 Office Visit Hakeem Walker [facility] 1.2.840.114 350.1.13.10 4.2.7.2.686 [id number] 2019-09-13 11:20:00 2019-09-13 11:20:00 Outpatient HAKEEM JAVIER [facility] [id number] [facility] 2019-09-10 00:00:00 2019-09-10 00:00:00 Telephone Hakeem Walker [facility] 1..840.114 350.1.13.10 4.2.7.2.686 [id number] [facility] 2019-08-01 12:25:14 2019-08-01 23:59:00 Outpatient HAKEEM JAVIER [facility] [id number] [facility] 2019-08-01 12:25:00 2019-08-01 23:59:00 Hospital Encounter Hakeem Walker [facility] 1.84.114 350.1.13.10 4.2.7.2.686 [id number] [facility] 2019-06-07 00:00:00 2019-06-07 00:00:00 Orders Only Doctor Unassigned, Volo [facility] 1..114 350.1.13.10 4.2.7.2.686 [id number] [facility] 2019-05-14 14:40:44 2019-05-14 15:42:51 Office Visit Hakeem Walker [facility] 1.840.114 350.1.13.10 4.2.7.2.686 [id number] [facility] 2019-05-14 15:00:00 2019-05-14 15:00:00 Outpatient HAKEEM JAVIER [facility] [id number] [facility] 2019-05-14 00:00:00 2019-05-14 00:00:00 Orders Only Doctor Unassigned, Volo [facility] 1..114 350.1.13.10 4.2.7.2.686 [id number] [facility] 2019-05-01 00:00:00 2019-05-01 00:00:00 Orders Only Doctor Unassigned, Volo [facility] 1.2.840.114 350.1.13.10 4.2.7.2.686 [id number] [facility] Results Test Description Test Time Test Comments Results Result Co mments Source [facility] Urinalysis, [id number] 15:55:00 * Test Item Value Reference Range [...] = ?0 ml. Results [facility] provider. [facility], [id number] 15:55:00 * Test Item Value Reference Range [...] = ?0 ml. [facility] [id number] 15:55:00 * Test Item Value Reference Range [...] = ?0 ml. Results [facility]. [facility], [id number] 15:55:00 * Test Item Value Reference Range [...] = ?0 ml. Results [facility]. [facility], [id number] 15:55:00 * Test Item Value Reference Range [...] = ?0 ml. Results reported to provider. [facility],POST-VOID RES,US,[id number] 00:00:00* Test Item Value Reference Range Interpretation Comme nts PVR (URINE VOLUME) (test code = 5193) 0 ml 0-100 [facility],POST-VOID RES,US,[id number] 00:00:00* Test Item Value Reference Range Interpretation Comme nts PVR (URINE VOLUME) (test code = 5193) 0 ml 0-100 [facility],POST-VOID RES,US,[id number] 00:00:00* Test Item Value Reference Range Interpretation Comme nts PVR (URINE VOLUME) (test code = 5193) 0 ml 0-100 [facility],US,[id number] 00:00:00* Test Item Value Reference Range Interpretation Comme nts PVR (URINE VOLUME) (test code = 5193) 0 ml 0-100 [facility],POST-VOID RES,US,[id number] 00:00:00* Test Item Value Reference Range Interpretation Comme nts PVR (URINE VOLUME) (test code = 5193) 0 ml 0-100 [facility],POST-VOID RES,US,[id number] 00:00:00* Test Item Value Reference Range Interpretation Comme nts PVR (URINE VOLUME) (test code = 5193) 0 ml 0-100 [facility] LUMBAR SPINE W WO [id number] 19:39:34HISTORY: Chronic back pain. History of prior lumbar surgery.. TECHNIQUE: Sagittal T2 FRFSE, T1, STIR and axial T2 FRFSE T1 studies oflumbar spines are obtained. Additional coronal T2 FRFSE study is alsoobtained. Contrast enhanced fat sat sagittal and axial T1 studies were repeated afterintravenous injection of 13 mL of MultiHance. FINDINGS: [facility] No aggressive lesions of the bones detected. [...] encroachment is not significant. L3-L4: Hardware into H4vcojft to be in good position. No hardware- [...] noted of intrathecal portion of the right B0vxqcf root. [facility], Radiant Results Inft User - [...] noted of intrathecal portion of the right K7sdtdt root.[facility] Notes Date/Time Note Provider Source Referral ID Status Reason Start Date Expiration Date V isits Requested Visits Authorized [id number] Incomplete 07/26/2024 01/22/2025 1 1 [id number] 17:53:05* [id number] 17:53:05* Angelito Acosta MD - 07/26/2024 1:45 PM CDT History of Present Illness HPI The patient is an 79-year-old female presenting with back pain and memory issues. The patient reports three recent ER visits due to back pain. She was informed that the pain was unrelated to her stomach, but a subsequent CT scan revealed a degenerated disc. She also has a history of back surgery 20 years ago. She is scheduled to see a specialist on August 19 and is currently under pain management, taking hydrochlorothiazide for arthritis. She reports significant memory decline, stating, "I forget and I still forget that that's my home." She lives alone with her dog and receives occasional help from family. She sometimes forgets if she has eaten and expresses fear of cooking. She has not been driving since she "got sick." Past Diagnostic Results: - CT Scan: Degenerated disc. - CT: Compression fracture at T11, severe stenosis at T12, left kidney stone. Allergies as of 07/26/2024 (No Known Allergies) has a current medication list which includes the following prescription(s): amlodipine, ascorbic acid, aspirin, cimzia, cholecalciferol, duloxetine, fenofibrate, gabapentin, hydrocodone-acetaminophen, hydroxyzine hcl, jardiance, metoprolol succinate xl, multivitamin, nitrofurantoin, prednisone, solifenacin, tizanidine, zinc sulfate, and galantamine. Musculoskeletal: (+) back pain, (+) difficulty walkingNeurological: (+) memory problems Vitals:07/26/24 1358 BP: (!) 133/100 Pulse: (!) 109 Resp: 16 Temp: 37.2 ?C (99 ?F) SpO2: 96% Neurological Exam Mental Status: Awake, alert, and oriented to person, place, and time. Memory is reported as significantly impaired, with frequent forgetfulness regarding daily activities and surroundings. Speech is normal. Language is fluent with no aphasia. Cranial Nerves: CN III, IV, : Extraocular movements intact bilaterally. No nystagmus. CN II-XII are otherwise intact. Motor: Normal muscle bulk throughout. Normal muscle tone. No abnormal involuntary movements. There is no tremor at rest or with action. There is no bradykinesia. There is no apparent weakness or pronator drift. Coordination: Right: Dnlzuo-hm-quhq normal. Rapid alternating movement is normal. Left: Kxoufj-hq-vspt normal. Rapid alternating movement is normal. Gait: Ambulates with a rolling walker Results for orders placed or performed during the hospital encounter of07/19/24 Basic Metabolic Panel Collection Time: 07/19/24 4:14 PM Result Value Ref Range Glucose Lvl 123 (H) 70 - 99 mg/dL BUN 17 9 - 23 mg/dL Creatinine Lvl 1.44 (H) 0.55 - 1.02 mg/dL Sodium Lvl 140 136 - 145 mEq/L Potassium Lvl 2.9 (LL) 3.4 - 4.5 mEq/L Chloride Lvl 99 98 - 107 mEq/L CO2 Lvl 31.2 (H) 20.0 - 31.0 mEq/L Anion Gap 12.7 10.0 - 20.0 mEq/L Calcium Lvl 10.2 8.3 - 10.6 mg/dL eGFR 37 (L) >60 mL/min/1.73m2 Hepatic Function Panel Collection Time: 07/19/24 4:14 PM Result Value Ref Range Protein 7.1 5.7 - 8.2 g/dL Albumin Lvl 3.4 3.4 - 5.0 g/dL Bilirubin Total 0.23 0.20 - 1.10 mg/dL Bilirubin Direct <0.2 <=0.3 mg/dL Bilirubin Indirect Alkaline Phosphatase 94 46 - 116 U/L AST 18 12 - 40 U/L ALT 9 7 - 40 U/L Globulin, Calc 3.7 2.0 - 4.0 g/dL Albumin/Globulin Ratio 0.92 0.7 - 1.6 Lipase Collection Time: 07/19/24 4:14 PM Result Value Ref Range Lipase Lvl 26 12 - 53 U/L Troponin I High Sensitivity (Single Order) Collection Time: 07/19/24 4:14 PM Result Value Ref Range HS Troponin I 13 0 - 37 pg/mL Complete Blood Count Collection Time: 07/19/24 4:14 PM Result Value Ref Range WBC 10.05 4.15 - 10.55 10*3/uL RBC 4.34 3.74 - 5.22 10*6/uL NRBC % 0.0 0 /100 WBC Hgb 11.2 10.8 - 14.8 g/dL Hct 35.8 33.9 - 45.4 % MCV 82.5 77.8 - 97.5 fL MCH 25.8 24.9 - 32.6 pg MCHC 31.3 30.1 - 35.0 g/dL RDW - SD 49.1 37.6 - 49.1 fL Plt Count 350 191 - 422 10*3/uL MPV 10.1 9.0 - 12.6 fL Automated Differential Collection Time: 07/19/24 4:14 PM Result Value Ref Range Segs % 73.3 (H) 40.9 - 70.4 % Lymphs % 19.0 15.3 - 46.4 % Monos % 5.5 3.9 - 10.9 % Eos % 1.5 0.3 - 4.1 % Basos % 0.4 0.2 - 1.3 % Immature Grans % 0.3 0.1 - 1 % Segs # 7.37 (H) 2.03 - 7.09 10*3/uL Lymphs # 1.91 1.09 - 3.65 10*3/uL Monos # 0.55 0.27 - 0.78 10*3/uL Eos # 0.15 0.02 - 0.33 10*3/uL Basos # 0.04 0.01 - 0.09 10*3/uL Imm Grans # 0.03 0.01 - 0.07 10*3/uL UA with culture if indicated Collection Time: 07/19/24 4:15 PM Result Value Ref Range UA Color Yellow Yellow UA Turbidity Slight Cloudy (A) Clear UA Spec Grav 1.009 <=1.030 UA pH 7.0 5.0 - 8.0 UA Protein Negative Negative mg/dL UA Glucose Negative Negative mg/dL UA Ketones Negative Negative mg/dL UA Bilirubin Negative Negative mg/dL UA Blood Negative Negative UA Urobilinogen <=1.0 0.1 - 1.0 mg/dL UA Nitrite Negative Negative UA Leuk Esterase Trace (A) Negative UA Ascorbic Acid Negative Negative UA Sq Epi Occasional Few /LPF UA WBC 3 0 - 5 /HPF UA RBC (Num) 1 0 - 2 /HPF UA Bacteria Occasional None Seen /HPF UA Mucus Few None Seen ECG 12 lead Collection Time: 07/19/24 4:23 PM Result Value Ref Range Ventricular Rate 105 BPM Atrial Rate 105 BPM DC Interval 154 ms QRS Duration 88 ms QT/QTc 352 ms QTc Calculation 465 ms P-Bangor 18 degrees R-Bangor 8 degrees T-Bangor 7 degrees No MRI head results found for the past 12 months === 07/19/24 === CT ABDOMEN PELVIS W IV CONTRAST - Impression -1. There is a 1 cm calculus at the left upper pole renal pelvis, without hydronephrosis. 2. Mild inferior endplate compression deformity is present at T11 and favored acute due to perivertebral stranding. 3. Age-indeterminate severe superior at L1. 4. Mild spinal canal stenosis at T11-12 and severe spinal canal stenosis at T12-L1 with multilevel severe degenerative disc disease. Consider follow-up MRI lumbar spine without contrast. 5. 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 6. Colonic diverticulosis. ELECTRONICALLY SIGNED BY SUZETTE PALMA MD ON 07/19/2024 AT 18:09.Labs: Tests: Imaging:- MRI of the back: No abnormal findings per pain center. - PET scan: Left kidney stone, compression fracture at T11, degenerative disc changes, and severe stenosis at T2. Assessment & Plan# Moderate dementia without behavioral disturbance, psychotic disturbance, mood disturbance, or anxiety, unspecified dementia type (HCC) (F03.B0) - Memory significantly deteriorated since last visit; patient forgets basic activities such as eating and recognizing home environment. - Initiated Galantamine BID to address cognitive decline. - Ordered MRI of the brain to evaluate for further neurological changes; to be performed at [place]. - Discussed the need for part-time assistance with daily activities; patient agrees but is uncertain about insurance coverage. 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 - Follow-up in 6 weeks to assess response to medication and review MRI results. # Compression fracture of T11 vertebra, sequela (S22.080S)- Recent CT scan revealed a compression fracture at T11 and severe stenosis at T2. - Patient experiencing significant back pain; has a history of back surgery 20 years ago. - Requested MRI of the spine report to further evaluate the extent of the fracture and stenosis; to be performed at [place]. - Patient is under the care of pain management and is currently taking Hydrocodone for arthritis. - Scheduled to see Dr. Cruz in [place] on August 19 for further evaluation. [id number] 17:53:05Upcoming Encounters Scheduled Orders Name Type Priority Associated Diagnoses Orde r Schedule MRI brain wo IV contrast Imaging Routine Moderate dementia wi thout behavioral disturbance, psychotic disturbance, mood disturbance, or anxiety, unspecified dementia type (HCC) Expected: 07/26/2024, Expires: 07/26/2025 Health Maintenance Due Date Last Done Comments Bone Density Scan 1945 Lipid Panel 1945 Medicare Annual Wellness (AWV) 1945 DTaP/Tdap/Td Vaccines (1 - Tdap) 06/07/1963 Zoster Vaccines (1 of 2) 06/07/1963 Pneumococcal Vaccine: 50+ Years (2 of 2 - PCV) 12/12/2011 12/11/2010 Respiratory Syncytial Virus (RSV) Adult Series (1 - 1-dose 75+ series) 06/07/2019 Influenza Vaccine (Season Ended) 2024 02/18/2021, 04/10/2018 HIB Vaccines Aged Out No longer [...] on patient's age to complete this topic [facility] [id number] 17:53:05 Diagnosis Moderate dementia without be havioral disturbance, psychotic disturbance, mood disturbance, or anxiety, unspecified dementia type (HCC) - Primary Compression fracture of T11 vertebra, sequela [facility] [id number] 17:53:05 [facility] [id number] 17:53:05* Imaging (Routine) - Incomplete Specialty Diagnoses / Procedures Referred By Contac t Referred To Contact Radiology Diagnoses Moderate dementia without behavioral disturbance, psychotic disturbance, mood disturbance, or anxiety, unspecified dementia type (HCC) Procedures MRI brain wo IV contrast Angelito Acosta MD [address] [place] [id number] Phone: tel: fax: Referral ID Status Reason Start Date Expiration Date V isits Requested Visits Authorized [id number] Incomplete 07/26/2024 01/22/2025 1 1 [facility] [id number] 17:53:05* [facility] [id number] 17:53:05* Angelito Acosta MD - 07/26/2024 1:45 PM CDT History of Present Illness HPI The patient is an 79-year-old female presenting with back pain and memory issues. The patient reports three recent ER visits due to back pain. She was informed that the pain was unrelated to her stomach, but a subsequent CT scan revealed a degenerated disc. She also has a history of back surgery 20 years ago. She is scheduled to see a specialist on August 19 and is currently under pain management, taking hydrochlorothiazide for arthritis. She reports significant memory decline, stating, "I forget and I still forget that that's my home." She lives alone with her dog and receives occasional help from family. She sometimes forgets if she has eaten and expresses fear of cooking. She has not been driving since she "got sick." Past Diagnostic Results: - CT Scan: Degenerated disc. - CT: Compression fracture at T11, severe stenosis at T12, left kidney stone. Allergies as of 07/26/2024 (No Known Allergies) has a current medication list which includes the following prescription(s): amlodipine, ascorbic acid, aspirin, cimzia, cholecalciferol, duloxetine, fenofibrate, gabapentin, hydrocodone-acetaminophen, hydroxyzine hcl, jardiance, metoprolol succinate xl, multivitamin, nitrofurantoin, prednisone, solifenacin, tizanidine, zinc sulfate, and galantamine. Musculoskeletal: (+) back pain, (+) difficulty walkingNeurological: (+) memory problems Vitals:07/26/24 1358 BP: (!) 133/100 Pulse: (!) 109 Resp: 16 Temp: 37.2 ?C (99 ?F) SpO2: 96% Neurological Exam Mental Status: Awake, alert, and oriented to person, place, and time. Memory is reported as significantly impaired, with frequent forgetfulness regarding daily activities and surroundings. Speech is normal. Language is fluent with no aphasia. Cranial Nerves: CN III, IV, : Extraocular movements intact bilaterally. No nystagmus. CN II-XII are otherwise intact. Motor: Normal muscle bulk throughout. Normal muscle tone. No abnormal involuntary movements. There is no tremor at rest or with action. There is no bradykinesia. There is no apparent weakness or pronator drift. Coordination: Right: Hotias-by-qxvc normal. Rapid alternating movement is normal. Left: Chtity-cb-qtgz normal. Rapid alternating movement is normal. Gait: Ambulates with a rolling walker Results for orders placed or performed during the hospital encounter of07/19/24 Basic Metabolic Panel Collection Time: 07/19/24 4:14 PM Result Value Ref Range Glucose Lvl 123 (H) 70 - 99 mg/dL BUN 17 9 - 23 mg/dL Creatinine Lvl 1.44 (H) 0.55 - 1.02 mg/dL Sodium Lvl 140 136 - 145 mEq/L Potassium Lvl 2.9 (LL) 3.4 - 4.5 mEq/L Chloride Lvl 99 98 - 107 mEq/L CO2 Lvl 31.2 (H) 20.0 - 31.0 mEq/L Anion Gap 12.7 10.0 - 20.0 mEq/L Calcium Lvl 10.2 8.3 - 10.6 mg/dL eGFR 37 (L) >60 mL/min/1.73m2 Hepatic Function Panel Collection Time: 07/19/24 4:14 PM Result Value Ref Range Protein 7.1 5.7 - 8.2 g/dL Albumin Lvl 3.4 3.4 - 5.0 g/dL Bilirubin Total 0.23 0.20 - 1.10 mg/dL Bilirubin Direct <0.2 <=0.3 mg/dL Bilirubin Indirect Alkaline Phosphatase 94 46 - 116 U/L AST 18 12 - 40 U/L ALT 9 7 - 40 U/L Globulin, Calc 3.7 2.0 - 4.0 g/dL Albumin/Globulin Ratio 0.92 0.7 - 1.6 Lipase Collection Time: 07/19/24 4:14 PM Result Value Ref Range Lipase Lvl 26 12 - 53 U/L Troponin I High Sensitivity (Single Order) Collection Time: 07/19/24 4:14 PM Result Value Ref Range HS Troponin I 13 0 - 37 pg/mL Complete Blood Count Collection Time: 07/19/24 4:14 PM Result Value Ref Range WBC 10.05 4.15 - 10.55 10*3/uL RBC 4.34 3.74 - 5.22 10*6/uL NRBC % 0.0 0 /100 WBC Hgb 11.2 10.8 - 14.8 g/dL Hct 35.8 33.9 - 45.4 % MCV 82.5 77.8 - 97.5 fL MCH 25.8 24.9 - 32.6 pg MCHC 31.3 30.1 - 35.0 g/dL RDW - SD 49.1 37.6 - 49.1 fL Plt Count 350 191 - 422 10*3/uL MPV 10.1 9.0 - 12.6 fL Automated Differential Collection Time: 07/19/24 4:14 PM Result Value Ref Range Segs % 73.3 (H) 40.9 - 70.4 % Lymphs % 19.0 15.3 - 46.4 % Monos % 5.5 3.9 - 10.9 % Eos % 1.5 0.3 - 4.1 % Basos % 0.4 0.2 - 1.3 % Immature Grans % 0.3 0.1 - 1 % Segs # 7.37 (H) 2.03 - 7.09 10*3/uL Lymphs # 1.91 1.09 - 3.65 10*3/uL Monos # 0.55 0.27 - 0.78 10*3/uL Eos # 0.15 0.02 - 0.33 10*3/uL Basos # 0.04 0.01 - 0.09 10*3/uL Imm Grans # 0.03 0.01 - 0.07 10*3/uL UA with culture if indicated Collection Time: 07/19/24 4:15 PM Result Value Ref Range UA Color Yellow Yellow UA Turbidity Slight Cloudy (A) Clear UA Spec Grav 1.009 <=1.030 UA pH 7.0 5.0 - 8.0 UA Protein Negative Negative mg/dL UA Glucose Negative Negative mg/dL UA Ketones Negative Negative mg/dL UA Bilirubin Negative Negative mg/dL UA Blood Negative Negative UA Urobilinogen <=1.0 0.1 - 1.0 mg/dL UA Nitrite Negative Negative UA Leuk Esterase Trace (A) Negative UA Ascorbic Acid Negative Negative UA Sq Epi Occasional Few /LPF UA WBC 3 0 - 5 /HPF UA RBC (Num) 1 0 - 2 /HPF UA Bacteria Occasional None Seen /HPF UA Mucus Few None Seen ECG 12 lead Collection Time: 07/19/24 4:23 PM Result Value Ref Range Ventricular Rate 105 BPM Atrial Rate 105 BPM DC Interval 154 ms QRS Duration 88 ms QT/QTc 352 ms QTc Calculation 465 ms P-Bangor 18 degrees R-Bangor 8 degrees T-Bangor 7 degrees No MRI head results found for the past 12 months === 07/19/24 === CT ABDOMEN PELVIS W IV CONTRAST - Impression -1. There is a 1 cm calculus at the left upper pole renal pelvis, without hydronephrosis. 2. Mild inferior endplate compression deformity is present at T11 and favored acute due to perivertebral stranding. 3. Age-indeterminate severe superior at L1. 4. Mild spinal canal stenosis at T11-12 and severe spinal canal stenosis at T12-L1 with multilevel severe degenerative disc disease. Consider follow-up MRI lumbar spine without contrast. 5. 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 6. Colonic diverticulosis. ELECTRONICALLY SIGNED BY SUZETTE PALMA MD ON 07/19/2024 AT 18:09.Labs: Tests: Imaging:- MRI of the back: No abnormal findings per pain center. - PET scan: Left kidney stone, compression fracture at T11, degenerative disc changes, and severe stenosis at T2. Assessment & Plan# Moderate dementia without behavioral disturbance, psychotic disturbance, mood disturbance, or anxiety, unspecified dementia type (HCC) (F03.B0) - Memory significantly deteriorated since last visit; patient forgets basic activities such as eating and recognizing home environment. - Initiated Galantamine BID to address cognitive decline. - Ordered MRI of the brain to evaluate for further neurological changes; to be performed at [place]. - Discussed the need for part-time assistance with daily activities; patient agrees but is uncertain about insurance coverage. 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 - Follow-up in 6 weeks to assess response to medication and review MRI results. # Compression fracture of T11 vertebra, sequela (S22.080S)- Recent CT scan revealed a compression fracture at T11 and severe stenosis at T2. - Patient experiencing significant back pain; has a history of back surgery 20 years ago. - Requested MRI of the spine report to further evaluate the extent of the fracture and stenosis; to be performed at [place]. - Patient is under the care of pain management and is currently taking Hydrocodone for arthritis. - Scheduled to see Dr. Cruz in [place] on August 19 for further evaluation. [facility]2025-05-16 17:53:05Upcoming Encounters Scheduled Orders Name Type Priority Associated Diagnoses Orde r Schedule MRI brain wo IV contrast Imaging Routine Moderate dementia wi thout behavioral disturbance, psychotic disturbance, mood disturbance, or anxiety, unspecified dementia type (HCC) Expected: 07/26/2024, Expires: 07/26/2025 Health Maintenance Due Date Last Done Comments Bone Density Scan 1945 Lipid Panel 1945 Medicare Annual Wellness (AWV) 1945 DTaP/Tdap/Td Vaccines (1 - Tdap) 06/07/1963 Zoster Vaccines (1 of 2) 06/07/1963 Pneumococcal Vaccine: 50+ Years (2 of 2 - PCV) 12/12/2011 12/11/2010 Respiratory Syncytial Virus (RSV) Adult Series (1 - 1-dose 75+ series) 06/07/2019 Influenza Vaccine (Season Ended) 2024 02/18/2021, 04/10/2018 HIB Vaccines Aged Out No longer [...] on patient's age to complete this topic [facility]hxxmeq0755-57-46 17:53:05 Diagnosis Moderate dementia without be havioral disturbance, psychotic disturbance, mood disturbance, or anxiety, unspecified dementia type (HCC) - Primary Compression fracture of T11 vertebra, sequela [facility] CentralEzunrcw3884-80-98 17:53:05 [facility] CentralLgnfobv3194-19-92 14:55:44Upcoming Encounters Health Maintenance Due Date Last Done Comments Bone Density Scan 1945 Lipid Panel 1945 Medicare Annual Wellness (AWV) 1945 DTaP/Tdap/Td Vaccines (1 - Tdap) 06/07/1963 Zoster Vaccines (1 of 2) 06/07/1963 Pneumococcal Vaccine: 50+ Years (2 of 2 - PCV) 12/12/2011 12/11/2010 Respiratory Syncytial Virus (RSV) Adult Series (1 - 1-dose 75+ series) 06/07/2019 Influenza Vaccine (Season Ended) 2024 02/18/2021, 04/10/2018 HIB Vaccines Aged Out No longer [...] on patient's age to complete this topic [facility] CentralTbkibsn8252-31-73 14:55:44 [facility] CentralXvkgjxj4382-33-26 14:55:19 Notified the patients son. [facility]2025-05-16 09:25:47 Patients son called in and requested a letter stating what you have observed about from a medical stand point. He requested something that would state that cannot live on her own with out some assistance. [facility] CentralUdadxqx3493-03-31 20:39:07* [facility] CentralJnkaxrr6745-34-66 20:39:07* Calculated C-SSRS Risk Score (Lifetime/Recent) Answer Date of Assessment Author No Risk Indicated 07/19/2024 4:23 PM CDT Linh Shea RN * Garza Suicide Severity Rating Scale (Screener/Recent Self-Report) Question Answer Date of Assessment Author 1. Wish to be (Past 1 Month) No 07/19/2024 4:23 PM CDT Linh Chavarria, NARCISA 2. Non-Specific Active Suicidal Thoughts (Past 1 Month) No 07/19/2024 4:23 PM CDT Linh Chavarria, NARCISA 6. Suicidal Behavior (Lifetime) No 07/19/2024 4:23 PM CDT Linh Chavarria RN [facility] CentralYsdcrhu6445-72-08 20:39:07Upcoming Encounters Pending Results Name Type Priority Associated Diagnoses Date /Time ECG 12 lead ECG STAT 07/19/2024 4: 23 PM CDT Scheduled Orders Name Type Priority Associated Diagnoses Order Schedule Oxygen Therapy - Patient Type: Adult; Device: Nasal Cannula; SpO2 Goals (select one): General: > or equal to 92%; Follow Respiratory Pathway: Yes Respiratory Care STAT For RT frequenc y use only for continuous procedures with task-based reminders at 8a and 8p until discontinued starting 07/19/2024 ECG 12 lead ECG STAT Once for 1 Occurrences starting 07/19/2024 until 07/19/2024 Health Maintenance Due Date Last Done Comments Bone Density Scan 1945 Lipid Panel 1945 Medicare Annual Wellness (AWV) 1945 DTaP/Tdap/Td Vaccines (1 - Tdap) 06/07/1963 Zoster Vaccines (1 of 2) 06/07/1963 Pneumococcal Vaccine: 50+ Years (2 of 2 - PCV) 12/12/2011 12/11/2010 Respiratory Syncytial Virus (RSV) Adult Series (1 - 1-dose 75+ series) 06/07/2019 Influenza Vaccine (Season Ended) 2024 02/18/2021, 04/10/2018 HIB Vaccines Aged Out No longer [...] on patient's age to complete this topic [facility] CentralKbozwre0027-91-02 20:39:07 Diagnosis Right lower quadrant abdomin al pain - Primary Compression deformity of leidy tebra Hypokalemia Hypopotassemia [facility] CentralMzmozni4399-50-84 20:39:07 [place] [id number] 08:30:33Upcoming Encounters Health Maintenance Due Date Last Done [...] on patient's age to complete this topic [facility] CentralNuavisz9216-84-53 08:30:33 [facility] CentralItzhdfr6590-81-02 08:30:13 LEFT VM.. [place] Mmwvmkp8749-06-42 10:44:58Upcoming Encounters Health Maintenance Due Date Last [...] on patient's age to complete this topic [facility] CentralPeipwvc4548-08-34 10:44:58 [facility] CentralImbfser8559-08-60 10:44:34 LEFT VM.. [place] SALES ADVISOR [place] [facility] BrookPfuxfrr8798-48-90 10:57:27Upcoming Encounters Health Maintenance Due Date Last [...] on patient's age to complete this topic [facility] CentralPutcyim2422-76-67 10:57:27 [facility] CentralGaqhzfe4084-10-44 10:57:08 FIRST ATTEMPT LEFT VM [place] Nyhfgxd2726-74-51 18:35:46* Imaging (Routine) - Pending Review Specialty Diagnoses / Procedures Referred By Contac t Referred To Contact Radiology Diagnoses MCI (mild cognitive impairment) with memory loss Cerebrovascular accident (CVA) due to occlusion of right posterior cerebral artery (HCC) Procedures MRI brain wo IV contrast Angelito Acosta MD [address] [place] [address] Phone: tel: fax: Referral ID Status Reason Start Date Expiration Date V isits Requested Visits Authorized [id number] Pending Review 02/23/2024 08/21/2024 1 1 [place] SALES ADVIS[place] [facility] CentralJnufvmw8799-41-28 18:35:46* [facility] CentralMcciqzm3970-95-02 18:35:46* Angelito Acosta MD - 02/23/2024 2:15 PM RETAIL SALES ADVISOR Phillip Aguilar is a 78 y.o. female presenting with memory loss. History of Present Illness Memory Loss TremorFall Had a R PMO CONSULTANT stroke in 01/02, vision loss on the [...] by mouth 1 time each day. HYDROcodone-acetaminophen ([place]) 10-325 MG tablet Take 1 tablet by [...] and symmetric in all four extremities. Coordination Gxmgop-er-jabt, rapid alternating movements and uygl-ah-ubro normal bilaterally without dysmetria. Gait Ambulates with [...] that study as well as additional labs. [facility]2024-12-13 18:35:46Upcoming Encounters Scheduled Orders Name Type [...] on patient's age to complete this topic [facility] CentralOsojevc2498-74-98 18:35:46 Diagnosis MCI (mild cognitive impairment) with memory loss - Primary Mild cognitive impairment, so stated Cerebrovascular accident (CV A) due to occlusion of right posterior cerebral artery (HCC) [facility] CentralLryekxr3237-18-02 18:35:46 [place] 635834-03-06 13:08:01 Name and verified. Pt stated that she has burning and frequency that started today. Has been taking AZO but it is not helping. Advised her that I will send a lab order to [facility] for a . Verbalized understanding. AZRA TOMLINSON RN 05/17/2023 1:08 PM [place] SALES ADVIS[place] Azra Tomlinson RNMartin Memorial HospitalBchrsk5230-10-27 10:33:24 Patient is calling is having burning and can barely urinate this started today. [place] SALES ADVISOR Annie JoseMartin Memorial HospitalUzitkv5568-44-33 16:03:18 Patient was called, no answer. LVM stating labs have been reviewed by provider and treatment has been sent to pharmacy. Left call back number for any questions. [place] SALES ADVISOR Sakina Navarro MAMartin Memorial HospitalHfnkoh1566-57-88 15:27:50 Patient says she had ua done last week and want to go over results. [place] SALES ADVISOR Annie GarciaMartin Memorial HospitalElxppj0936-24-10 08:19:50 Images from the original note were not included. Azra Tomlinsno RN 04/17/2023 4:54 PM RETAIL SALES ADVISOR Back to Top Name and verified. Pt advised of results and plan of care as stated below per provider. Pt verbalized understanding. Straight cath needed per Dr. Cadena. Appt made. AZRA TOMLINSON RN 04/17/2023 4:53 PM [place] SALES ADVISOR Evin Juan RNMartin Memorial HospitalVmvfmf9278-36-52 16:43:26 Astrid Aguilar is a 77 year old female Pt returning missed call to go over results. [place] SALES ADVISOR Yulissa MaeMartin Memorial HospitalKlycpt3299-28-62 15:30:32 Attempted to contact patient. No answer, VM left. Evin Juan RN 04/17/2023 3:32 PM [place] SALES ADVISOR Martin [facility] HospitalXgzyva2445-73-23 14:52:00 Pt says she calling back to get UA results and says she has some issues with holding liquid says she needs to get her infusion so want to discuss ua results. GarciaMartin Memorial HospitalWoszll7331-49-91 16:15:49 Returned patients call. Patient advised that her urine results are not complete at this time. Patient verbalized understanding. Evin Juan RN 04/12/2023 4:17 PM Juan [facility] HospitalWpqzne8444-43-33 16:04:57 Pt says she dropped off ua yesterday is wanting to know if results are in says she having some discomfort. GarciaMartin Memorial HospitalYmxoil5858-54-80 11:08:16 Spoke with patient. Patient states her cellar packer cancelled her infusion as there is no proof that UTI is cleared. Patient states she needs a clear urine culture to receive RA infusion. Patient unable to make it to [place] to go to lab. Patient requesting order to be sen to [facility]. Order sent via [facility] online portal. Evin Juan RN 04/11/2023 11:10 AM Juan [facility] HospitalLaegmz1450-32-97 10:55:44 Attempted to contact patient. Unable to hear patient. Will try again. Evin Juan RN 04/11/2023 10:56 AM [facility]2024-01-30 09:17:38 Pt calling back need to discuss ua results. GarciaMartin Memorial HospitalJrgyfz6525-02-50 16:27:42 Pt is calling want to discuss her getting a ua done since she has an upcoming appt for infusion and needs to make sure she doesn't have infection. [place] [address]-01-25 11:06:27 Name and verified. Pt stated that she is not able to urinate. "Drops" since 0230 this morning. Pain and feel full. Pain with urination. Instructed pt to go to ER to be evaluated. Verbalized understanding. AZRA TOMLINSON RN 04/06/2023 11:17 AM Azra Tomlinson [place] [address]-01-25 10:46:24 Patient is calling to follow up and is requesting a call back. Tabitha HullCar[place] [address]-01-25 09:29:02 Patient is returning call. [place] [address]-01-25 09:11:33 Patient states she finished antibiotic 2 days ago. She states she is having frequency, doesn't go much when she goes and it [place]. She is requesting a call back. [place] [address]-01-22 11:45:52 Images from the original note were not included. Contacted patient regarding results and recommendations. Tayla Cadena MD 03/28/2023 1:34 PM RETAIL SALES ADVISOR Pt was taking Cipro (prescribed by outside provider) which is resistant. Please contact pt with results Bactrim DS sent to pharmacy on file Thank you Patient verbalized understanding. [place] SALES ADVISOR Evin Juan [facility] HospitalYrvgbe0814-42-06 11:35:56 Pt says she was waiting to hear back about ua results and medication want to discuss. GarciaMartin Memorial HospitalZciily3449-96-77 10:00:00 Addended by: TAYLA CADENA MD on: 03/28/2023 01:35 PM Modules accepted: Orders [facility]
--- NOTE | 2024-12-05 08:45 | RAD REPORT ---
EXAM: CT brain without contrast HISTORY: fall from bed, head/neck/pelvic pain COMPARISON: 09/21/2020 TECHNIQUE: Multiple contiguous axial images were obtained and a CT of the brain without contrast. Sag ittal and coronal reformats were performed. FINDINGS: No evidence of hydrocephalus, intracranial hemorrhage, or extra-axial fluid collection. Right occipital encephalomalacia is stable. Mild diffuse brain atrophy with stable nonspecific modera te periventricular and deep white matter hypodensities suggestive of chronic microvascular ischemic changes present. Partially empty sella again seen. The calvarium is intact. The visualized paranasal sinuses and mastoid air cells are essentially clear . IMPRESSION: No evidence of acute intracranial abnormality. Stable chronic findings including sequelae of right oc cipital lobe remote ischemia. EXAM: CT of the cervical spine without contrast HISTORY: fall from bed, head/neck/pelvic pain COMPARISON: None TECHNIQUE: Multiple contiguous axial images were obtained in a CT of the cervical spine without contr ast. Sagittal and coronal reformats were performed. FINDINGS: The vertebral bodies demonstrate normal height and alignment. No evidence of acute fracture or subluxation.. Stable multilevel degenerative changes with stable alignment of C4-C7 plating hardware. No prevertebral soft tissue swelling is seen. The posterior facets are well aligned. Normal alignment of the skull base with the cervical spine is seen. The lung apices are unremarkable. IMPRESSION: No evidence of acute osseous abnormality of the cervical spine. Stable degenerative changes as above.
--- NOTE | 2024-12-05 09:05 | RAD REPORT ---
EXAM: CT CHEST, ABDOMEN AND PELVIS WITHOUT CONTRAST CLINICAL INDICATION: Female, 79 years old. [facility] MAIN TRAUMA TECHNIQUE: CT chest, abdomen and pelvis was performed, without IV contrast, as per department protoco l. Axial, sagittal and coronal reconstructions were obtained. One or more of the following dose reduction techniques were used: Automated exposure control, adjustment of the mA and/or kV according to the patient size, and/or iterative reconstruction. Unless otherwise specified, incidental findings do not require dedicated imaging follow-up. COMPARISON: 07/12/2024 pelvis FINDINGS: The lack of intravenous contrast limits the sensitivity of this exam for evaluation of solid visceral organs, vascular structures, and retroperitoneum. Chest: LOWER NECK/CHEST WALL: Visualized thyroid gland and soft tissues are normal. LUNGS AND AIRWAYS: Mild basilar predominant reticular opacities may suggest sequelae of chronic obstr uctive lung disease. No evidence of airspace or interstitial process. No nodules. PLEURA: No pleural effusion. No pneumothorax. Hemidiaphragms are normally positioned. MEDIASTINUM AND LYMPH NODES: No mediastinal mass or fluid collection. Normal size mediastinal, hilar, and axillary lymph nodes. THORACIC AORTA: Normal caliber and configuration. PULMONARY ARTERIES: Prominent caliber of the main pulmonary artery relative to the aorta. HEART: Mild pericardial effusion. Heart is normal.. Abdomen/Pelvis LIVER: Normal in size and contour. No focal lesion. GALLBLADDER/BILE DUCTS: Status post cholecystectomy PANCREAS: No mass, ductal dilation, or allison-pancreatic fluid. SPLEEN: Normal size. No focal lesion. ADRENALS: Normal; no mass. KIDNEYS AND URETERS: Atrophic changes of both kidneys more apparent on the right, stable. No hydronep hrosis. GASTROINTESTINAL TRACT: Stomach is non-dilated. Small bowel has normal course and caliber. No colonic wall thickening or pericolonic inflammatory changes. Distal colonic diverticulosis. Appendix not well visualized. PERITONEUM: No free fluid. LYMPH NODES: No lymphadenopathy. ABDOMINAL AORTA AND OTHER VESSELS: Normal caliber aorta and IVC. URINARY BLADDER: Normal contour. REPRODUCTIVE ORGANS: No pathologic process. MUSCULOSKELETAL: Left third, fourth, and fifth lateral healing rib fractures. Stable moderate wedge c ompression deformity at L1 and mild superior endplate compression deformity at L2. Progressive compression deformities of the endplates surrounding T11-12 disc space since the prior exam now with moderate height loss at T11 ADDITIONAL FINDINGS: Areas of ossification along the proximal muscle attachment at the anterior-infer ior iliac spine, stable. Sequelae of graft extraction along the right iliac bone. IMPRESSION: Healing left third, fourth, and fifth rib fractures laterally. Progressive compression deformities along the endplates surrounding T11-12 disc space since the prior study. This is of indeterminate age. The mild pericardial effusion. Prominent caliber of the main pulmonary artery relative to the aorta. Please correlate clinically for presence of portal hypertension. Other incidental findings as above.
--- NOTE | 2024-12-05 09:06 | RAD REPORT ---
EXAMINATION: Hip Left 2 View CLINICAL INDICATION: Female, 79 years old. [facility] MAIN PAIN Bed Name: 4 TECHNIQUE: 2 view radiograph of the left hip were obtained. COMPARISON: No prior exam. FINDINGS: No evidence of fracture or dislocation. Normal alignment. Mild left hip joint degenerative changes. No other focal bone lesion. 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 IMPRESSION: No acute osseous abnormalities. Chronic findings as above.
--- NOTE | 2024-12-05 09:06 | RAD REPORT ---
EXAM: XR Knee Right 2 View HISTORY: [facility] MAIN PAIN Bed Name: 4 COMPARISON: None TECHNIQUE: 3 views of the right knee were obtained. FINDINGS: No knee effusion is seen. There is no evidence of acute fracture or dislocation. At least moderate degenerative changes are seen with joint space loss most notable along the medial weightbearing compartment. Vascular calcifications. No soft tissue swelling or other soft tissue abn ormality is present. IMPRESSION: No evidence of acute osseous abnormality. Chronic findings as above.
--- NOTE | 2024-12-05 09:13 | ER ---
Nurse's Notes [facility] Name: Astrid Cash Age: 79 yrs Sex: Female : 1945 Arrival Date: 12/05/2024 Time: 08:07 Bed 4 Private MD: Diagnosis: Unspecified injury of head, initial encounter;Contusion of left hip;Contusion of right knee Presentation: 12/05 08:10 Chief complaint: EMS states: Fell out of bed this morning, c/o headache and pain in hb neck, left hip, right knee, skin tear to left elbow. Unable to bear weight. C collar in place. Coronavirus screen: At this time, the client does not indicate any symptoms associated with coronavirus-19. Ebola Screen: No symptoms or risks identified at this time. Initial Sepsis Screen: Does the patient meet any 2 criteria? No. Patient's initial sepsis screen is negative. Does the patient have a suspected source of infection? No. Patient's initial sepsis screen is negative. Risk Assessment: Do you want to hurt yourself or someone else? Patient reports no desire to harm self or others. Onset of symptoms was December 05, 2024. 08:10 Method Of Arrival: EMS: [facility] 08:10 Acuity: [place] 3 hb Triage Assessment: 08:13 General: Appears in no apparent distress. uncomfortable, Behavior is calm, cooperative. hb Pain: Pain currently is 9 out of 10 on a pain scale. EENT: No signs and/or symptoms were reported regarding the EENT system. Neuro: Level of Consciousness is awake, alert, obeys commands, Oriented to person, place, time, situation. Cardiovascular: Patient's skin is warm and dry. Respiratory: Respiratory effort is even, unlabored, Respiratory pattern is regular, symmetrical. GI: No signs and/or symptoms were reported involving the gastrointestinal system. : No signs and/or symptoms were reported regarding the genitourinary system. Derm: Skin is pink, warm \T\ dry. skin tear to left elbow, dressing in place, dressing is dry and intact. Musculoskeletal: Reports severe left hip pain, pain in neck and right knee. Historical: - Allergies: 08:11 Sulfa (Sulfonamide Antibiotics); hb - PMHx: 08:11 Chronic pain; Hypertension; Anxiety; Depression; Rheumatoid Arthritis; hb - PSHx: 08:11 back surgery; Cholecystectomy; ; hysterectomy; neck surgery; hb - Immunization history:: Adult Immunizations up to date. - Infectious Disease History:: Denies. - Family history:: not pertinent. - Social history:: Smoking status: Patient denies any tobacco usage or history of. - Hospitalizations: : No recent hospitalization is reported. Screenin:14 [facility] ED Fall Risk Assessment (Adult) History of falling in the last 3 months, hb including since admission Yes- single mechanical fall (1 pt) Confusion or Disorientation No (0 pts) Intoxicated or Sedated No (0 pts) Impaired Gait No (0 pts) Mobility Assist Device Used No (0 pt) Altered Elimination No (0 pt) Score/Fall Risk Level 0 - 2 = Low Risk Oriented to surroundings, Maintained a safe environment, Educated pt \T\ family on fall prevention, incl call for assistance when getting out of bed. Abuse screen: Denies threats or abuse. Denies injuries from another. Nutritional screening: No deficits noted. Tuberculosis screening: No symptoms or risk factors identified. Assessment: 08:14 General: See triage assessment . hb 09:00 Reassessment: Patient appears in no apparent distress at this time. No changes from previously documented assessment. Patient and/or family updated on plan of care and expected duration. Pain level reassessed. 10:00 Reassessment: Patient appears in no apparent distress at this time. No changes from previously documented assessment. Patient and/or family updated on plan of care and expected duration. Pain level reassessed. 10:05 Reassessment: Report called to Evelin BREWSTER at [facility], will send transport hb home. Vital Signs: 08:10 BP 177 / 96; Pulse 77; Resp 16; Temp 98.3; Pulse Ox 100% ; Weight 57.15 kg; Height 5 hb ft. 4 in. ; Pain 9/10; 08:10 Body Mass Index 21.63 (57.15 kg, 162.56 cm) hb 08:10 Pain Scale: Adult ED Course: 08:08 Patient arrived in ED. iw 08:08 Sebastian Tyson MD is Attending Physician. rn 08:11 Triage completed. hb 08:13 Arm band placed on. hb 08:14 Patient has correct armband on for positive identification. Provided Education on: call hb light. 08:21 Chest Abd Pelvis Wo Con In Process Unspecified. EDMS 08:21 Head C Spine Mpr Wo Con In Process Unspecified. EDMS 08:38 Knee Right 2 View In Process Unspecified. EDMS 08:39 XRAY Hip LEFT 2 view In Process Unspecified. EDMS Administered Medications: No medications were administered Medication: 08:14 VIS not applicable for this client. hb Outcome: :13 Discharge ordered by . rn 10:51 Patient left the ED. iw Signatures: Dispatcher [employer] Humera Sutherland RN RN iw Nieto, Roman, MD MD rn Baxter, Heather, RN RN hb
--- NOTE | 2024-12-05 09:13 | EDPHYS ---
Physician Documentation [facility] Name: Astrid Cash Age: 79 yrs Sex: Female : 1945 Arrival Date: 12/05/2024 Time: 08:07 Bed 4 Private MD: ED Physician Sebastian Tyson HPI: 12/05 08:10 This 79 yrs old Female presents to ER via Unassigned with complaints of fall. rn 08:10 Patient reports fall, out of bed, from skilled nursing, no LOC. Does not take blood rn thinners. Reports headache, neck pain, left pelvic pain, right knee pain, left hip pain.. Historical: - Allergies: 08:11 Sulfa (Sulfonamide Antibiotics); hb - PMHx: 08:11 Chronic pain; Hypertension; Anxiety; Depression; Rheumatoid Arthritis; hb - PSHx: 08:11 back surgery; Cholecystectomy; ; hysterectomy; neck surgery; hb - Immunization history:: Adult Immunizations up to date. - Infectious Disease History:: Denies. - Family history:: not pertinent. - Social history:: Smoking status: Patient denies any tobacco usage or history of. - Hospitalizations: : No recent hospitalization is reported. ROS: 08:10 Constitutional: Negative for fever, chills, and weight loss, Eyes: Negative for injury, rn pain, redness, and discharge, Neck: Positive for mild neck pain Cardiovascular: Negative for chest pain, palpitations, and edema, Respiratory: Negative for shortness of breath, cough, wheezing, and pleuritic chest pain, Abdomen/GI: Negative for abdominal pain, nausea, vomiting, diarrhea, and constipation, Back: Negative for injury and pain, MS/Extremity: Positive for left hip pain and right knee pain Skin: No lacerations Neuro: Positive for mild headache Exam: 08:10 Constitutional: This is a well developed, well nourished patient who is awake, alert, rn and in no acute distress. Head/Face: Normocephalic, atraumatic. Eyes: Pupils equal round and reactive to light, extra-ocular motions intact. Lids and lashes normal. Conjunctiva and sclera are non-icteric and not injected. Cornea within normal limits. Periorbital areas with no swelling, redness, or edema. Neck: In c-collar, no midline tenderness Chest/axilla: No rib tenderness or crepitus Cardiovascular: Regular rate and rhythm. No pulse deficits. Respiratory: Speaking full sentences, unlabored Abdomen/GI: Soft, nontender MS/ Extremity: Mild pain full range of motion left hip and right knee. No gross deformity Neuro: Awake and alert, GCS 15 Vital Signs: 08:10 BP 177 / 96; Pulse 77; Resp 16; Temp 98.3; Pulse Ox 100% ; Weight 57.15 kg; Height 5 hb ft. 4 in. ; Pain 9/10; 08:10 Body Mass Index 21.63 (57.15 kg, 162.56 cm) hb 08:10 Pain Scale: Adult hb MDM: 08:08 Medical Screening Exam initiated rn 09:10 Independent interpretation of the following test(s) in the Emergency Department X-Ray: rn My interpretation is X-ray images left hip negative for acute fracture or dislocation per my interpretation.. CT Scan: My interpretation is CT head images negative for acute hemorrhage per my interpretation. engine monitor: rate is 77 beats/min, Rhythm is normal sinus rhythm, regular, with no ectopy, Interpretation: normal rate, normal rhythm. Care significantly affected by the following chronic conditions: Hypertension. Counseling: I had a detailed discussion with the patient and/or guardian regarding the historical points, exam findings, and any diagnostic results supporting the discharge/admit diagnosis, radiology results, the need for outpatient follow up, to return to the emergency department if symptoms worsen or persist or if there are any questions or concerns that arise at home. Special discussion: Based on the patient's history, exam and DX evaluation, there is no indication for emergent intervention or inpatient TX. It is understood by the patient/guardian that if the SXs persist or worsen they need to return immediately for re-evaluation. I discussed with the patient/guardian in detail that at this point there is no indication for admission to the hospital. It is understood, however, that if the symptoms persist or worsen the patient needs to return immediately for re-evaluation. ED course: CT imaging shows healing rib fractures and spinal compression fractures but no acute traumatic findings. X-rays of the left hip and right knee negative for acute fracture or dislocation. I have personally reviewed all of the results, including but not limited to imaging deemed necessary to safely discharge this patient at this time. All results given to and printed out for patient. I personally went over all the results with the patient and answered all questions. Patient will follow-up with PCP and or specialist as discussed. Return precautions given and understood. Les. 12/05 08:09 Order name: XRAY Hip LEFT 2 view; Complete Time: 09:07 rn 12/05 08:13 Order name: Chest Abd Pelvis Wo Con; Complete Time: 09:07 EDMS 12/05 08:14 Order name: Head C Spine Mpr Wo Con; Complete Time: 09:07 EDMS 12/05 08:38 Order name: Knee Right 2 View; Complete Time: 09:07 EDMS Administered Medications: No medications were administered Disposition Summary: 12/05/24 09:13 Discharge Ordered Notes: Location: Home rn Problem: new rn Symptoms: have improved rn Condition: Stable rn Diagnosis - Unspecified injury of head, initial encounter rn - Contusion of left hip rn - Contusion of right knee rn Followup: rn - With: Private Physician - When: As needed - Reason: Recheck today's complaints, Re-evaluation by your physician Discharge Instructions: - Discharge Summary Sheet rn - Contusion rn - Head Injury, Adult rn - Fall Prevention in the Home, Adult rn Forms: - Medication Reconciliation Form rn - Antibiotic ornamental 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 EDMS EDMS 08:38 08:10 Knee Right 3 View+RAD.RAD.BRZ ordered. EDMS EDMS
[2024-12-05 10:55] VITALS: BP 177/96; TEMP 98.3; O2SAT 100
== END 2024-12-05 10:51 | disposition home or self-care (01) ==
LOC: ER 08:07
DX: S09.90XA Unspecified injury of head, initial encounter (principal); S70.02XA Contusion of left hip, initial encounter; S80.01XA Contusion of right knee, initial encounter; W06.XXXA Fall from bed, initial encounter; Y92.122 Bedroom in nursing home as the place of occurrence of the external cause
CPT/HCPCS: 70450; 71250; 72125; 74176; 99282